=== PATIENT | male | born 1965 | race Caucasian/White ===

== ENCOUNTER 2021-09-09 15:36 | Outpatient (REF) | payer OTHER, SELFPAY ==
[2021-09-09 15:42] LABS: MANUAL DIFF FLAG NO
[2021-09-09 15:45] LABS: Basophils Absolute Auto 0.1 X10*3/uL (0.0-0.2); Basophils Percent Auto 0.5 % (0-2); Eosinophils Percent Auto 0.3 % (0-4); Hematocrit 44.6 % (42.0-52.0); Hemoglobin 14.9 g/dl (14.0-18.0); Imm Gran Abs Auto 0.03 X10*3/uL (0.00-0.03); Imm Gran Pct Auto 0.3 % (0.0-0.4); Lymphocytes Absolute Auto 3.3 X10*3/uL (1.2-4.9); Lymphocytes Percent Auto 33.3 % (20-40); Mean Corpuscular HGB Conc 33.4 g/dl (31.0-36.0); Mean Corpuscular Hemoglobin 31.3 pg (27.0-33.0); Mean Corpuscular Volume 93.7 fL (80.0-98.0); Mean Platelet Volume 10.6 fL (9.4-12.4); Monocytes Absolute Auto 0.8 X10*3/uL (0.1-1.2); Monocytes Percent Auto 8.2 % (2-11); Neutrophils Absolute Auto 5.7 x10*3/uL (2.0-8.3); Neutrophils Percent Auto 57.4 % (45-73); Platelet Count 279 X10*3/uL (160-400); Red Blood Count 4.76 X10*6/uL (4.60-5.80); Red Cell Distribution Width 12.4 % (11.0-16.0)
[2021-09-09 16:03] LABS: Alanine Aminotransferase 82 U/L (0-40); Albumin Level 4.6 g/dL (3.5-5.0); Alkaline Phosphatase 53 U/L (39-117); Anion Gap 13 (12-20); Aspartate Amino Transferase 52 U/L (5-37); Bilirubin Total 0.5 mg/dL (0.0-1.0); Blood Urea Nitrogen 23 mg/dL (9-16); Calcium 10.1 mg/dL (8.4-10.2); Carbon Dioxide 27 mmol/L (22-29); Chloride 105 mmol/L (96-108); Estimated Glomerular Filt Rate 57; Glucose Fasting 96 mg/dL (60-99); Potassium 4.5 mmol/L (3.3-5.1); Sodium 140 mmol/L (135-145); Total Protein 7.9 g/dL (6.5-8.0)
[2021-09-09 16:23] LABS: PSA,Total (Free>4and<10) 3.62 ng/mL (0.00-4.00); TSH reflex Free T4 1.78 uIU/mL (0.32-4.0)
== END 2021-09-09 15:37 | disposition home or self-care (01) ==
LOC: HO.LNP 15:36
PROVIDERS: Visit Provider Internal Medicine
DX: Z00.00 Encounter for general adult medical examination without abnormal findings (principal); E03.2 Hypothyroidism due to medicaments and other exogenous substances; R97.20 Elevated prostate specific antigen [PSA]; Z12.5 Encounter for screening for malignant neoplasm of prostate
CPT/HCPCS: 80053; 84153; 84443; 85025

== ENCOUNTER 2022-09-11 16:40 | Outpatient (REF) | payer OTHER, SELFPAY ==
[2022-09-11 17:48] LABS: PSA,Total (Free>4and<10) 3.51 ng/mL (0.00-4.00)
== END 2022-09-11 16:41 | disposition home or self-care (01) ==
LOC: HO.LNP 16:40
PROVIDERS: Visit Provider Internal Medicine
DX: Z12.5 Encounter for screening for malignant neoplasm of prostate (principal); Z80.42 Family history of malignant neoplasm of prostate
CPT/HCPCS: 84153

== ENCOUNTER 2024-11-08 15:10 | Outpatient (REF) | payer OTHER, SELFPAY ==
[2024-11-08 15:36] LABS: Potassium 4.5 mmol/L (3.3-5.1)
--- OUTSIDE RECORDS SUMMARY | 2024-11-08 18:24 | XMS_ITS | Referral Summary ---
Author Organization [facility] r Address [address] [place] [address] Phone Care Team Providers Care Research Hydraulic Engineer Name Role Phone Unavailable Primary Care Provider Unavailabl e Social History Tobacco Use Types Packs/Day Years Used Date Smoking Tobacco: Never Assessed Sex and Gender Information Value Date Recorded Sex Assigned at Not on file Gender Identity Not on file Sexual Orientation Not on file Last Filed Vital Signs Vital Sign Reading Time Taken Comments Blood Pressure 101/72 03/29/2012 10:32 AM EDT Pulse 65 03/29/2012 10:32 AM EDT Temperature - - Respiratory Rate - - Oxygen Saturation - - Inhaled Oxygen Concentration - - Weight 82.5 kg (181 lb 14.1 oz) 012 10:32 AM EDT Height 170 cm (5' 6.93 ) 03/29/2012 10: 32 AM EDT Body Mass Index 28.55 03/29/2012 10:32 AM EDT Plan of Treatment Not on file
--- OUTSIDE RECORDS SUMMARY | 2024-11-08 18:24 | XMS_ITS | Encounter Summary ---
Author Organization [facility] Address [address] [address] Phone Care Team Providers Care Business Writer Name Role Phone Frankie Marion MD Unavailable [phone] Rosas Triana MD Unavailable Eduardo Chen [facility] ROSLYN Unavailable Billy Tsang RN Unavailable [phone] Kimberly Raman MD Primary Care Provider Asher Coleman PA-C Unavailable Encounter Details Date Type Department Care Team (Late st Contact Info) Description 11/08/2024 Orders Only Adult Survivorship Program, [facility] [place] [address] [place] [address] Malorie Mckeon MD [address] [place] [address] [email or web address] Hypercalcemia (Primary Dx); Stage 3a chronic kidney disease Social History Tobacco Use Types Packs/Day Years Used Date Smoking Tobacco: Never Smokeless Tobacco: Never Alcohol Use Standard Drinks/Week Comments Yes 1 (1 standard drink = 0.6 oz pur e alcohol) occasional Education Answer Date Recorded Are you interested in more education? Not on paula e 12/27/2022 Are you concerned about learning? Not on file 12/27/2022 No 12/27/2022 No 12/27/2022 Digital Access Answer Date Recorded No 01/24/2023 No 01/24/2023 Reliable internet access at home? Not on file 01/24/2023 Device with a working camera? Not on file Sex and Gender Information Value Date Recorded Sex Assigned at Male 10/23/2021 10:19 PM EST Gender Identity Male 10/23/2021 10:19 PM EST Sexual Orientation Not on file documented as of this encounter Plan of Treatment Upcoming Encounters Date Type Department Care Team (Late st Contact Info) Description 11/09/2024 8:00 AM EDT Office Visit [facility] [address] [place] [address] Sang Matthews MD, MPH [address] [place] [address] [email or web address] 12/08/2024 11:50 AM EDT Blood Draw Laboratory Services, [facility] [address] [facility] 2 [place] [address] Malorie Mckeon MD [address] [place] [address] [email or web address] Yenny, MD Yenny 12/08/2024 1:00 PM EDT Office Visit [facility] Urology [address] [place] [address] Robinsno Enrique MD [address] [place], [place] [address] [address] [email or web address] 12/08/2024 2:00 PM EDT Office Visit Adult Survivorship Program, [facility] [address] [place], [place] [phone] Malorie Mckeon MD [address] [place] [address] @[email or web address] 02/13/2025 10:10 AM EDT Blood Draw Laboratory Services, [facility] [address] [facility] [address] [place] [address] Etienne Zarate MD [address] [place] [address] [email or web address] 02/13/2025 11:00 AM EDT Office Visit Division of Hematologic Oncology, [facility] [address] [facility] [address] [place] [address] Etienne Zarate MD [address] [place] [address] [email or web address] 03/07/2025 9:00 AM EDT Office Visit Adult Survivorship Program, [facility] [address] [facility] [address] [place] [address] Wilder Melvin MD [address] [place] [address] [email or web address] Scheduled Orders Name Type Priority Associated Diagnoses Orde r Schedule Comprehensive metabolic panel Lab Routine Hypercalcemia Stage 3a chronic kidney disease Expected: 11/08/2024, Expires: 11/08/2025 Cystatin C Lab Routine Hypercalcemia Stage 3a chronic kidney disease Expected: 11/08/2024, Expires: 11/08/2025 Uric acid Lab Routine Hypercalcemia Stage 3a chronic kidney disease Expected: 11/08/2024, Expires: 11/08/2025 Microalbumin/creatinine ratio, random urine Lab Routine Hypercalcemia Stage 3a chronic kidney disease Expected: 11/08/2024, Expires: 11/08/2025 Total protein, random urine Lab Routine Hypercalcemia Stage 3a chronic kidney disease Expected: 11/08/2024, Expires: 11/08/2025 LDH Lab Routine Hypercalcemia Stage 3a chronic kidney disease Expected: 11/08/2024, Expires: 11/08/2025 Haptoglobin Lab Routine Hypercalcemia Stage 3a chronic kidney disease Expected: 11/08/2024, Expires: 11/08/2025 25-OH vitamin D Lab Routine Hypercalcemia Expected: 11/08/2024, Expires: 11/08/2025 Parathyroid hormone (PTH) Lab Routine Hypercalcemia Stage 3a chronic kidney disease Expected: 11/08/2024, Expires: 11/08/2025 Phosphorus Lab Routine Hypercalcemia Stage 3a chronic kidney disease Expected: 11/08/2024, Expires: 11/08/2025 documented as of this encounter Visit Diagnoses Diagnosis Hypercalcemia- Primary Stage 3a chronic kidney disease documented in this encounter Additional Health Concerns Assessment Noted Time PHQ-2 Depression Total Score: 0 12/24/19 24 6:18 PM EDT documented as of this encounter Care Teams Business Writer Relationship Specialty Start Date End Date Kimberly Raman MD [address] [place] [address] Care - 4th [place] [address] [email or web address] PCP - General Internal Medicine 05/21/22 Asher Coleman PAMaryC [address] [place] [address] PCP - Resident PCP Physician Business Support Associate 05/21/22 Frankie Marion MD [address] [place] [address] Historical LMR Provider 01/13/15 Rosas Triana MD [address] [place] [address] Historical LMR Provider 01/13/15 Eduardo Chen, [facility] ROSLYN [address] [place] [address] [email or web address] Endocrinology 05/12/17 Billy Tsang RN [address] [place] [address] [email or web address] Primary Infusion Nurse 09/09/17 documented as of this encounter Additional Source Comments The information contained in this document represents components of the legal health record. It is not the complete legal health record.[facility]
--- OUTSIDE RECORDS SUMMARY | 2024-11-08 18:24 | XMS_ITS | Encounter Summary ---
Author Organization [facility] Address [address] [place] [address] Phone Care Team Providers Care Leather Coater Name Role Phone Frankie Marion MD Unavailable [phone] Rosas Triana MD Unavailable Eduardo Chen [facility] ROSLYN Unavailable Billy Tsang RN Unavailable Kimberly Raman MD Primary Care Provider Asher Coleman PA-C Unavailable Reason for Visit * Reason Comments Eye Exam Encounter Details Date Type Department Care Team (Late st Contact Info) Description 11/07/2024 2:30 PM EDT Office Visit [facility] Comprehensive Ophthalmology [address] [address] Tiffanie Capone MD, PhD [address] [place] [address] 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 man with a history of AML s/p MUD PBSCT 2009. 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 Vaccinated x3 against COVID-19. Not considered immunocompromised. 1. 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, OS always has foreign body sensation and does not change - OD baseline comfortable - white discharge and crusting OD in the past month - constant throughout the day, uses handkerchief to dig it out - OD looks red throughout the day - OS less erythema and edema, no discharge - used Serum tears OU around 2x/day - Has been using Restasis OU a few times a week as a lubricant, not on any lubricant - no keratoconjunctivitis components seen on exam today - stopped ReStasis, now doing better - some irritation after running out of serum tears (2-3x/day OU), new supply to be delivered soon - now back on serum tears 2-3x/day OU, doing well. Only used Lotemax for ~1 week in early March for irritation after glaucoma clinic and resolved - Only one plug in (LLL), no SPK or staining OU - 04/03/20: Stopped using serum tears since 08/2019 because of the difficulty to get blood drawn (apptwas very strict and requires in person pick-up). Reports slight setback without using serum tears but not drastically. Still uses PF-AT's around BID. Uses Lotemax around 2x/month PRN. Only needs 1 dose to control early flare-ups. OS good lid condition, OD very mild inflammation explains mucous discharge. Not rubbing or digging. - 11/08/20: noticed that there was some crusting (all day) and irritation on lids in the past 3 weeks. Using warm compress to remove crusting. Using Lotemax ointment QHS for past 3 weeks. Was off for many months previously. Not symptomatic except visible lid margin redness. - 11/07/21: Notes small amount of crusting in the mornings every day. Uses warm compresses every morning to wipe his eyes. Also notes he had a period of discharge in July 2021. Used Lotemax x3 weeks in August 2021 for new onset irritation which seemed to resolve his symptoms. No crusting on lash OU, excellent ocular surface OU. - 11/07/24: Mostly comfortable with ocassional irritation (~1/day) in the evening and discharge OU not using PF-ATs or lotemax. Able to get off lotemax, not used it for 6 months. Warm compress daily has improved meibum expression OD > OS. OS more symptomatic likely from MG inspissation. no corneastaining OU. Plug status after visit: no plug 2. 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 Lucia Rodriguez, not on glaucoma drops - Tm 30 OU when on 10mg of Prednisone orally - CCT 570 560 - IOP 20 OU on Lotemax QHS OU, at goal - IOP 18 OU off Lotemax - 04/03/20: 18/19 on occasional Lotemax (stable) - HVF 24-2 (11/07/24) OD full reliable OS small nonspecific defect paracentrally, reliable - MAC OCT (11/07/24) OU WNL - RNFL OCT (11/07/24) OU WNL 3. MGD Belpharitis OU - foamy discharge at lid margin resolved - most MG expressible, some MG with cloudy secretion - 11/07/24 Warm compress daily has improved meibum expression OD > OS. OS more symptomatic likelyfrom MG inspissation. 4. Posterior Subcapsular Cataract OU - History of Prednisone use - Posterior subcapsular component - No subjective vision change but may develop symptoms quickly - Biometry done 11/07/24 5. Choroidal Nevus OD, RPE Changes OS - Mild, not visually significant Plan - Discussed the diagnosis in detail: I explained to Carter that he is doing well. To further improve his ocular symptoms, I suggested longer warm compresses. Furthermore, there appears to be a cataract not visually significant at the moment, when this progresses and effects his vision he can call in. - No rubbing or mucous fishing - Restart PF-ATs QD OU - Continue warm compress OU QD at least 10 mins - Follow up with me TBD, call for appointment for VAcc and no gtts. MD to discuss cataracts. By signing my name below, I, Alejandro Josue, acting as a scribe, attest that this documentation has been prepared under the direction and in the presence of Tiffanie Capone MD. 11/07/2024 3:27 PM documented in this encounter Plan of Treatment Upcoming Encounters Date Type Department Care Team (Late st Contact Info) Description 11/09/2024 8:00 AM EDT Office Visit [facility] [address] [place] [address] Sang Matthews MD, MPH [address] [place] [address] [email or web address] 12/08/2024 11:50 AM EDT Blood Draw Laboratory Services, [facility] [address] [place] [address] 2 [place] [address] Malorie Mckeon MD [address] [place] [address] [email or web address] Unknown, MD Yenny 12/08/2024 1:00 PM EDT Office Visit [facility] Urology [address] [place], [place] [address] [address] Robinson Enrique MD [address] [facility] [address] [email or web address] 12/08/2024 2:00 PM EDT Office Visit Adult Survivorship Program, [facility] [address] [place] [address] Malorie Mckeon MD [address] [place] [address] @[email or web address] 02/13/2025 10:10 AM EDT Blood Draw Laboratory Services, [facility] [address] [facility] Fl 2 [place] [address] Etienne Zarate MD 450 [place] [address] [email or web address] 02/13/2025 11:00 AM EDT Office Visit Division of Hematologic Oncology, [facility] [address] [place] [address] Etienne Zarate MD 450 [place] [address] [email or web address] 03/07/2025 9:00 AM EDT Office Visit Adult Survivorship Program, [facility] [address] [place] [address] Wilder Melvin MD [address] [place] [address] [email or web address] documented as of this encounter Procedures Procedure Name Priority Date/Time Associated Diagnosis Comments OCT, RETINA - OU - BOTH EYES Routine 11/07/2024 11:07 PM EDT Steroid responder, bilateral OCT, OPTIC NERVE - OU - BOTH EYES Routine 11/07/2024 11:07 PM EDT Steroid responder, bilateral OPTICAL BIOMETRY - OU - BOTH EYES Routine 11/07/2024 11:07 PM EDT 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-related cataract of both eyes LEDBETTER VISUAL FIELD - OU - BOTH EYES Routine 11/07/2024 2:46 PM EDT Steroid responder, bilateral documented in this encounter Results * OCT, RETINA - OU - BOTH EYES - Cirrus; Retina (11/07/2024 11:07 PM EDT) Narrative YolaY - 11/07/2024 11:07 PM EDT - MAC OCT (11/07/24) OU WNL Tiffanie Capone MD, PhD OPHTHALMOLOGY HERMINIODav OMER Performing Organization Address [facility] de Phone Number HARMONY * OCT, Optic Nerve - OU - Both Eyes - Cirrus; RNFL, GCC (11/07/2024 11:07 PM EDT) Narrative YolaY - 11/07/2024 11:07 PM EDT - RNFL OCT (11/07/24) OU WNL Tiffanie Capone MD, PhD OPHTHALMOLOGY HERMINIODav OMER Performing Organization Address [facility] de Phone Number HARMONY * Optical Biometry - OU - Both Eyes (11/07/2024 11:07 PM EDT) Narrative YolaY - 11/07/2024 11:07 PM EDT I have reviewed the biometry data. Tiffanie Capone MD, PhD OPHTHALMOLOGY HERMINIODav OMER Performing Organization Address [facility] Co de Phone Number HARMONY * Ledbetter Visual Field - OU - Both Eyes (11/07/2024 2:46 PM EDT) Narrative YolaY - 11/07/2024 11:08 PM EDT Right Eye Pattern: 24-2. Left Eye Pattern: 24-2. General Details Testing performed by: shola. Notes - HVF 24-2 (11/07/24) OD full reliable ?? 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-related cataract of both eyes Chronic ccare-jgsepb-kpkj disease documented in this encounter Additional Health Concerns Assessment Noted Time PHQ-2 Depression Total Score: 0 12/24/19 24 6:18 PM EDT documented as of this encounter Care Teams Leather Coater Relationship Specialty Start Date End Date Kimberly Raman MD 20 [facility] Primary Care - 4th [place] [address] [email or web address] PCP - General Internal Medicine 05/21/22 Asher Coleman PAMaryC 20 [place] [address] [email or web address] PCP - Resident PCP Physician Principal Examiner 05/21/22 Frankie Marion MD [address] [place] [address] Historical LMR Provider 01/13/15 Rosas Triana MD [address] [place] [address] [email or web address] Historical LMR Provider 01/13/15 Eduardo Chen, [facility] ROSLYN [address] [place] [address] [email or web address] Endocrinology 05/12/17 Billy Tsang, RN [address] [place] [address] [email or web address] Primary Infusion Nurse 09/09/17 documented as of this encounter Additional Source Comments The information contained in this document represents components of the legal health record. It is not the complete legal health record.[facility]
--- OUTSIDE RECORDS SUMMARY | 2024-11-08 18:24 | XMS_ITS | Encounter Summary ---
Author Organization [facility] Address [address] [place] [address] Phone Care Team Providers Care Steel Rule Die Maker Name Role Phone Luis M Dempsey MD Primary Care Provider Frankie Marion MD Unavailable [phone] Khoa Mattson MD Unavailable Rosas Triana MD Unavailable Yamel Osborne MD Unavailable [phone] Eduardo Chen [facility] Unavailable Billy Tsang RN Unavailable Kimberly Raman MD Primary Care Provider [phone] Asher Coleman PA-C Unavailable Encounter Details Date Type Department Care Team (Latest Contact Info) Description 05/20/2019 Transcribe Orders [address] [address] Yousuf Zamora MD, PhD Dry eyes (Primary Dx) Social History Tobacco Use Types Packs/Day Years Used Date Smoking Tobacco: Never Smokeless Tobacco: Never Alcohol Use Standard Drinks/Week Comments Yes 1 (1 standard drink = 0.6 oz pur e alcohol) occasional Sex and Gender Information Value Date Recorded Sex Assigned at Male 10/23/2021 10:19 PM EST Gender Identity Male 10/23/2021 10:19 PM EST Sexual Orientation Not on file documented as of this encounter Plan of Treatment Upcoming Encounters Date Type Department Care Team (Late st Contact Info) Description 11/09/2024 8:00 AM EDT Office Visit [facility] [address] [address] Sang Matthews MD, MPH [address] [place] [address] [email or web address] 12/08/2024 11:50 AM EDT Blood Draw Laboratory Services, [facility] [address] [facility] [address] [place] [address] Malorie Mckeon MD [address] [place] [address] [email or web address] Unknown, Yenny, 12/08/2024 1:00 PM EDT Office Visit [facility] Urology [address] [address] Robinson Enrique MD [address] [address] [email or web address] 12/08/2024 2:00 PM EDT Office Visit Adult Survivorship Program, [facility] [address] [facility] [place] [address] Malorie Mckeon MD [address] [place] [address] [email or web address] 02/13/2025 10:10 AM EDT Blood Draw Laboratory Services, [facility] [address] [facility] [address] [place], [place] Etienne Zarate MD [address] [place] [address] [email or web address] 02/13/2025 11:00 AM EDT Office Visit Division of Hematologic Oncology, [facility] [address] [email or web address] [place] [address] Etienne Zarate MD [address] [place] [address] [email or web address] 03/07/2025 9:00 AM EDT Office Visit Adult Survivorship Program, [facility] [address] [facility], Fl [address] [place] [address] Wilder Melvin MD [address] [place] [address] [email or web address] documented as of this encounter Procedures Procedure Name Priority Date/Time Associated Diagnosis Comments HC CULTURE BACTERIAL ANY SOURCE ANAEROBIC ISO&ID Routine 05/20/2019 10:11 AM EDT Dry eyes documented in this encounter Results * AUTOLOGOUS SERUM FOR TEARS LAB BLOOD DRAW (05/20/2019 10:11 AM EDT) Tubes Drawn [address] [place] [address] [facility] 05/20/2019 10:1 1 AM EDT 05/20/2019 11:19 AM EDT Yousuf Zamora MD, PhD LAB BLOOD ORDERA [place] [address], [facility] documented in this encounter Visit Diagnoses Diagnosis Dry eyes- Primary Unspecified tear film insufficiency documented in this encounter Additional Health Concerns Infection Onset Date Last Indicated Resolved Time CoV-Risk 03/27/2021 03/27/2021 04/06/2021 1:24 AM EDT Assessment Noted Time PHQ-2 Depression Total Score: 0 04/22/20 18 3:04 PM EDT documented as of this encounter Care Teams Steel Rule Die Maker Relationship Specialty Start Date End Date Luis M Dempsey MD [address] [place] [address] [place] [address] PCP - General 02/28/14 05/20/22 Kimberly Raman MD 20 [facility] Primary Care - [address] [place] [address] [email or web address] PCP - General Internal Medicine 05/21/22 Asher Coleman PA-C 20 [place] [address] PCP - Resident PCP Physician Sorter Lumber Straightener 05/21/22 Frankie Marion MD [address] [place] [address] Historical LMR Provider 01/13/15 Khoa Mattson MD [address] [place] [address] Historical LMR Provider 01/13/15 2 Rosas Triana MD [address] [place] [address] [email or web address] Historical LMR Provider 01/13/15 Yamel Osborne MD [address] [place] [address] [email or web address] Historical LMR Provider 01/13/15 09/07/21 Eduardo [facility] ROSLYN [address] [place] [address] [email or web address] Endocrinology 05/12/17 Billy Tsang, RN [address] [place] [address] [email or web address] Primary Infusion Nurse 09/09/17 documented as of this encounter Additional Source Comments The information contained in this document represents components of the legal health record. It is not the complete legal health record.[facility]
--- OUTSIDE RECORDS SUMMARY | 2024-11-08 18:24 | XMS_ITS | Encounter Summary ---
Author Organization [facility] Address [address] [place] [phone] Phone Care Team Providers Care Respiratory Support Technician Name Role Phone Luis M Dempsey MD Primary Care Provider Frankie Marion MD Unavailable Ayan Anderson NP Unavailable [phone] Khoa Mattson MD Unavailable Rosas Triana MD Unavailable Yamel Osborne MD Unavailable [phone] Luis M Dempsey MD Unavailable Eduardo Chen [facility] ROSLYN Unavailable Billy Tsang RN Unavailable Kimberly Raman MD Primary Care Provider Asher Coleman PA-C Unavailable Encounter Details Date Type Department Care Team (Late st Contact Info) Description 04/21/2017 Procedure Pass [facility] Cardiac Photographic Enlarger Operator [address] [place] [id number] Social History Tobacco Use Types Packs/Day Years Used Date Smoking Tobacco: Never Smokeless Tobacco: Never Alcohol Use Standard Drinks/Week Comments Yes 1 (1 standard drink = 0.6 oz pur e alcohol) Sex and Gender Information Value Date Recorded Sex Assigned at Male 10/23/2021 10:19 PM EST Gender Identity Male 10/23/2021 10:19 PM EST Sexual Orientation Not on file documented as of this encounter Plan of Treatment Upcoming Encounters Date Type Department Care Team (Late st Contact Info) Description 11/09/2024 8:00 AM EDT Office Visit [facility] [address] [address] Sang Matthews MD, MPH 221 [place] [address] [email or web address] 12/08/2024 11:50 AM EDT Blood Draw Laboratory Services, [facility] [email or web address] [facility] Fl 2 [place] [address] Malorie Mckeon MD [address] [place] [address] [email or web address] Unknown, Yenny, 12/08/2024 1:00 PM EDT Office Visit [facility] Urology [address] [place] [address] Robinson Enrique MD [address] [facility] [address] [email or web address] 12/08/2024 2:00 PM EDT Office Visit Adult Survivorship Program, [facility] [address] [facility], Fl 6 [place] [address] Malorie Mckeon MD [address] [place] [address] [email or web address] 02/13/2025 10:10 AM EDT Blood Draw Laboratory Services, [facility] [address] [facility] Fl [address] [place] [address] Etienne Zarate MD 450 [place] [address] [email or web address] 02/13/2025 11:00 AM EDT Office Visit Division of Hematologic Oncology, [facility] 450 [facility], Fl 8 [place] [address] Etienne Zarate MD 450 [place] [address] [email or web address] 03/07/2025 9:00 AM EDT Office Visit Adult Survivorship Program, [facility] 450 [facility] Machine Safety ManangementwAugustine Temperature Management Ctr, Fl 6 [place] [address] Wilder Melvin MD [address] [place] [address] [email or web address] documented as of this encounter Visit Diagnoses Not on filedocumented in this encounter Additional Health Concerns Infection Onset Date Last Indicated Resolved Time CoV-Risk 03/27/2021 03/27/2021 04/06/2021 1:24 AM EDT documented as of this encounter Care Teams Respiratory Support Technician Relationship Specialty Start Date End Date Luis M Dempsey MD [address] [place] [address] [place] [address] PCP - General 02/28/14 05/20/22 Kimberly Raman MD 20 [facility] Primary Care - 4th [place] [address] [email or web address] PCP - General Internal Medicine 05/21/22 Asher Coleman Ci, PA-C 20 [place] [address] [email or web address] PCP - Resident PCP Physician Manager Of Manufacturing 05/21/22 Frankie Marion MD [address] [place] [address] Historical LMR Provider 01/13/15 Ayan Anderson, JULIANNE [address] [place], [place] [address] [address] [email or web address] Historical LMR Provider 01/13/15 09/06/17 Khoa Mattson MD [address] [place] [address] Historical LMR Provider 01/13/15 2 Rosas Triana MD [address] [place] [address] [email or web address] Historical LMR Provider 01/13/15 Yamel Osborne MD [address] [place] [address] [email or web address] Historical LMR Provider 01/13/15 09/07/21 Luis M Dempsey MD [address] [place] [address] [place] [address] Referring Physician Internal Medicine 11/06/15 09/06/17 Eduardo Chen, [facility] ROSLYN [address] [place] [address] [email or web address] Endocrinology 05/12/17 Billy Tsang, RN 300 [place] [address] [email or web address] Primary Infusion Nurse 09/09/17 documented as of this encounter Additional Source Comments The information contained in this document represents components of the legal health record. It is not the complete legal health record.[facility]
--- OUTSIDE RECORDS SUMMARY | 2024-11-08 18:25 | XMS_ITS | Clinical Summary ---
Author Organization [facility] Address 1 [place] [address] Phone Care Team Providers Care Financial Management Consultant Name Role Phone Unavailable Primary Care Provider [...] 03/29/2012 10:32 AM EDT Plan of Treatment Health Maintenance Due Date Last Done Comments Diabetes Screening 1967 HIV Lifetime Screening 1967 Hepatitis B sAg Lifetime Screening 1967 Hepatitis C Antibody Lifetim e Screening 1967 LIPID PANEL 1967 THRIVE SCREENING 1967 Oral Health Screen 1967 HEIP Disability Screen 02/11/1972 BEHAVIORAL HEALTH SCREEN 1979 Psych Substance Use Screen 1979 DTAP/TDAP VACCINE (1 - Tdap) 1986 Zoster Vaccine (1 of 2) 2017 COVID-19 Vaccine ( - 2023-2 5 season) 2024 INFLUENZA VACCINE (#1) 2024 Colorectal Cancer Screening Completed HPV VACCINES Aged Out No longer eligi ble based on patient's age to complete this topic IPV VACCINES Aged Out No longer eligi ble based on patient's age to complete this topic Pneumonia Vaccine 0-64 Aged Out No lo nger eligible based on patient's age to complete this topic ROTAVIRUS VACCINES Aged Out No longer eligible based on patient's age to complete this topic
--- OUTSIDE RECORDS SUMMARY | 2024-11-08 18:25 | XMS_ITS | Encounter Summary ---
Author Organization [facility] Address [address] [place] [address] Phone Care Team Providers Care Junior Buyer Name Role Phone Luis M Dempsey MD Primary Care Provider Lynda Cuenca MD Unavailable Frankie Marion MD Unavailable [phone] Ayan Anderson NP Unavailable [phone] Khoa Mattson MD Unavailable Rosas Triana MD Unavailable Yamel Osborne MD Unavailable [phone] Luis M Dempsey MD Unavailable [phone] [facility] ROSLYN Unavailable Billy Tsang RN Unavailable [phone] Kimberly Raman MD Primary Care Provider [phone] Asher Coleman PA-C Unavailable Encounter Details Date Type Department Care Team (Late st Contact Info) Description 08/23/2015 EpicOnHand Encounter Division of Hematologic Oncology, [facility] [address] [place] [address] 8 [place], [place] [phone] Odette Martin NP [address] [address] [email or web address] Social History Tobacco Use Types Packs/Day Years [...] Description 11/09/2024 8:00 AM EDT Office Visit [facility] [address] [phone] Sang Matthews MD, MPH 221 [place] [address] [email or web address] 12/08/2024 11:50 AM EDT Blood Draw Laboratory Services, [facility] 450 [address] [employer] [facility] 2 [place] [address] Malorie Mckeon MD 45 [place], [place] @[facility] Yenny, MD Yenny 12/08/2024 1:00 PM EDT Office Visit [facility] Urology [address] [address] Robinson Enrique MD [address] [address] [email or web address] 12/08/2024 2:00 PM EDT Office Visit Adult Survivorship Program, [facility] [address] [employer] [facility], Fl [address] [place] [address] Malorie Mckeon MD [address] [place] [address] [email or web address] 02/13/2025 10:10 AM EDT Blood Draw Laboratory Services, [facility] 450 [facility] Fl [address] [place], [place] Etienne Zarate MD 450 [place] [address] [email or web address] 02/13/2025 11:00 AM EDT Office Visit Division of Hematologic Oncology, [facility] [address] [employer] [facility], Fl 8 [place] [address] Etienne Zarate MD 450 [place] [address] [email or web address] 03/07/2025 9:00 AM EDT Office Visit Adult Survivorship Program, [facility] 450 [facility], Wy 6 [place] [address] Wilder Melvin MD [address] [place] [address] [email or web address] documented as of this encounter Visit Diagnoses Not on filedocumented in this encounter Additional Health Concerns Infection Onset Date Last Indicated Resolved Time CoV-Risk 03/27/2021 03/27/2021 04/06/2021 1:24 AM EDT documented as of this encounter Care Teams Junior Buyer Relationship Specialty Start Date End Date Luis M Dempsey MD [address] [place] [address] [place] [address] PCP - General 02/28/14 05/20/22 Kimberly Raman MD 20 [facility] Primary Care - 4th [place] [address] [email or web address] PCP - General Internal Medicine 05/21/22 Asher Coleman PA-C 20 [place] [address] [email or web address] PCP - Resident PCP Physician Circular Sawyer Stone 05/21/22 Lynda Cuenca MD [address] [place] [address] Endocrinology, Diabetes [place] [address] [email or web address] Historical LMR Provider 01/13/15 11/04/15 Frankie Marion MD [address] [place] [address] Historical LMR Provider 01/13/15 Ayan Anderson NP [address] [place] [address] [address] [email or web address] Historical LMR Provider 01/13/15 09/06/17 Khoa Mattson MD [address] [place] [address] Historical LMR Provider 01/13/15 2 Rosas Triana MD [address] [place] [address] [email or web address] Historical LMR Provider 01/13/15 Yamel Osborne MD [address] [place] [address] [email or web address] Historical LMR Provider 01/13/15 09/07/21 Luis M Dempsey MD [address] [place] [address] [address] Referring Physician Internal Medicine 11/06/15 09/06/[address] [facility] ROSLYN [address] [place] [address] [email or web address] Endocrinology 05/12/17 Billy Tsang, RN [address] [place] [address] [email or web address] Primary Infusion Nurse 09/09/17 documented as of this encounter Additional Source Comments The information contained in this document represents components of the legal health record. It is not the complete legal health record.[facility]
--- OUTSIDE RECORDS SUMMARY | 2024-11-08 18:25 | XMS_ITS | Encounter Summary ---
Author Organization [facility] Address [address] [address] Phone Care Team Providers Care Incendiaries Supervisor Name Role Phone Luis M Dempsey MD Primary Care Provider Frankie Marion MD Unavailable [phone] Khoa Mattson MD Unavailable Rosas Triana MD Unavailable Yamel Osborne MD Unavailable [phone] Eduardo Chen [facility] Unavailable Billy Tsang RN Unavailable Kimberly Raman MD Primary Care Provider Asher Coleman PA-C Unavailable Encounter Details Date Type Department Care Team (Late st Contact Info) Description 09/10/2017 Transcribe Orders [facility] Echocardiography 70 [place] [address] Sienna Kim 75 [place] [address] [email or web address] Social History Tobacco Use Types Packs/Day Years [...] Description 11/09/2024 8:00 AM EDT Office Visit [facility] [address] [address] Sang Matthews MD, MPH [address] [place] [address] [email or web address] 12/08/2024 11:50 AM EDT Blood Draw Laboratory Services, [facility] [address] [facility] 2 [place] [address] Malorie Mckeon MD [address] [place] [address] [email or web address] Unknown, Yenny, 12/08/2024 1:00 PM EDT Office Visit [facility] Urology [address] [address] Robinson Enrique MD [address] [place] [address] [email or web address] 12/08/2024 2:00 PM EDT Office Visit Adult Survivorship Program, [facility] [address], [address] 6 [place] [address] Malorie Mckeon MD [address] [place] [address] [email or web address] 02/13/2025 10:10 AM EDT Blood Draw Laboratory Services, [facility] [address] [facility] [address] [place] [address] Etienne Zarate MD 450 [place] [address] [email or web address] 02/13/2025 11:00 AM EDT Office Visit Division of Hematologic Oncology, [facility] [address] [facility] C[facility], Fl 8 [place] [address] Etienne Zarate MD 450 [place] [address] [email or web address] 03/07/2025 9:00 AM EDT Office Visit Adult Survivorship Program, [facility] [address] [facility], Fl 6 [place] [address] Wilder Melvin MD [address] [place] [address] [email or web address] documented as of this encounter Visit Diagnoses Not on filedocumented in this encounter Additional Health Concerns Infection Onset Date Last Indicated Resolved Time CoV-Risk 03/27/2021 03/27/2021 04/06/2021 1:24 AM EDT Assessment Noted Time PHQ-2 Depression Total Score: 0 09/10/19 18 3:10 PM EST documented as of this encounter Care Teams Incendiaries Supervisor Relationship Specialty Start Date End Date Luis M Dempsey MD [address] [place] [address] [place] [address] PCP - General 02/28/14 05/20/22 Kimberly Raman MD [address] [place] [address] Primary Care - 4th [place] [address] [email or web address] PCP - General Internal Medicine 05/21/22 Asher Coleman PA-C 20 [place] [address] [email or web address] PCP - Resident PCP Physician Finished Cloth Checker 05/21/22 Frankie Marion MD 450 [place] [address] Historical LMR Provider 01/13/15 Khoa Mattson MD [address] [place] [address] Historical LMR Provider 01/13/15 Rosas Irvin MD [address] [place] [address] [email or web address] Historical LMR Provider 01/13/15 Yamel Osborne MD 450 [place] [address] [email or web address] Historical LMR Provider 01/13/15 09/07/21 Eduardo Chen [facility] ROSLYN [address] [place] [address] [email or web address] Endocrinology 05/12/17 Billy Tsang, PRANAV [address] [place] [address] [email or web address] Primary Infusion Nurse 09/09/17 documented as of this encounter Additional Source Comments The information contained in this document represents components of the legal health record. It is not the complete legal health record.[facility]
--- OUTSIDE RECORDS SUMMARY | 2024-11-08 18:25 | XMS_ITS | Clinical Summary ---
Author Organization [facility] Address [address] [place] [address] Phone Care Team Providers Care Card Services Specialist Name Role Phone Frankie Marion MD Unavailable [phone] Roass Triana MD Unavailable Eduardo Chen [facility] ROSLYN Unavailable Billy Tsang RN Unavailable Kimberly Raman MD Primary Care Provider Asher Coleman PA-C Unavailable Allergies Active Allergy Reactions Criticality Noted Date Comments Cefepime Rash,Other (See Comments) 03/22/2010 fever Ceftazidime Rash,Other (See Comments) 0 fever Prochlorperazine Other (See Comments),Unknown 0 09/20/2010 akathisia Medications Medication Sig Dispensed Refills Start Date End Date Status fluocinolone (SYNALAR) 0.025 % creamIndications: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 04/07/2011 Active folic acid (FOLVITE) 1 MG tablet Take 1 tablet by mouth daily. 08/12/2010 Active custom medication, see admin inst / label comment, AUTOLOGOUS SERUM TEARS 20% Dose: 1 DROP; Form: Not available; Route: OU; Frequency: BID OU; Directions: Patients need to be scheduled for a venipuncture on the day tears are to be compounded. Fresh blood must always be used. The amount of blood that is drawn will depend on the patient?s hemoglobin and hematocrit level, in addition to the size, age and cooperation of the patient; this will ultimately affect the amount of ophthalmic drops that are prepared. Recommended amount of blood for an average size adult is 30 ml. It is imperative that the lab is instructed that the serum will be needed for autologous use. If any of the serum is hemolyzed, the serum will not be able to be used. The amount of serum that is received by the lab will determine the amount of ophthalmic solution that is compounded. Each 1 ml of serum will produce 5 ml of diluted autologous tears. Patients must be counseled on the special handling procedures of blood products. Special emphasis must be placed on appropriate storage conditions of this product.; Details: Duration: 90 day(s); Dispense: 6 Bottle(s); Date: 11/06/2015 11/06/2015 Active ergocalciferol (DRISDOL) 50,000 unit capsule Active loteprednol (LOTEMAX) 0.5 % Oint PLACE INTO EACH EYE NIGHTLY AT BEDTIME. APPLY ONE RICE GRAIN SIZED OINTMENT TO EACH LID MARGIN NIGHTLY 3.5 g 09/09/2021 Active docosahexaenoic acid/epa (FISH OIL ORAL) Take by mouth. Active vitamin E 400 UNIT capsule Take 400 Units by mouth daily. Active levothyroxine (SYNTHROID, LEVOTHROID) 75 MCG tablet take 1 tablet by mouth every day 90 tablet 11 10/12/2023 Active potassium citrate (UROCIT-K) 10 mEq SR tabletIndications:C alculus of kidney Take 2 tablets (20 mEq total) by mouth 2 (two) times a day with meals. 120 tablet 11 12/07/2023 Active lisinopril (PRINIVIL,ZESTRIL) 5 MG tabletIndications:C hronic renal impairment, stage 1 Take 1 tablet (5 mg total) by mouth daily. 90 tablet 3 08/15/2024 Active Active Problems Problem Noted Date Diagnosed Date Status post patent foramen ovale closure 018 Shortness of breath 04/21/2017 Pneumonia due to infectious organism 09/25/2016 Status post allogeneic bone marrow transplant Chest pain 09/22/2015 Abdominal pain 09/20/2015 Chronic renal impairment 10/24/2013 Overview (10/21/2014): Chronic renal impairment Hypothyroidism 10/11/2012 Overview (10/21/2014): Hypothyroidism Glaucoma 02/26/2012 Overview (10/21/2014): Glaucoma Osteoporosis 01/19/2012 Overview (10/21/2014): Osteoporosis Uncoded new pt 11/19/2011 Overview (10/21/2014): new pt; pt is here for right knee, avasular necrosis Pulmonary embolism 06/26/2011 Overview (10/21/2014): Pulmonary embolism 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 Overview (10/21/2014): Acute myeloid leukemia, disease Encounters Date Type Department Care Team Description 11/08/2024 Orders Only Adult Survivorship Program, [facility] [address] [place] [address] Malorie Mckeon MD Hypercalcemia (Primary Dx); Stage 3a chronic kidney disease 11/07/2024 2:30 PM EDT Office Visit [facility] [address] [address] Tiffanie Capone MD, PhD Meibomian gland dysfunction (MGD) (Primary Dx); Steroid responder, bilateral; 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-related cataract of both eyes; Chronic aryls-iyttep-zyvj disease 09/01/2024 Orders Only Division of Hematologic Oncology, [facility] [address] [place] [address] Etienne Zarate MD Status post allogeneic bone marrow transplant (Primary Dx) 08/15/2024 Orders Only [facility] [address] [place] [address] Malorie Mckeon MD Chronic renal impairment, stage 1 from Last 3 Months Immunizations Name Administration Dates Next Due COVID-19 (Pre-06/22) Moderna Vaccine, mRNA, PF 10/28/2020 DTaP, unspecified formulation 08/18/2011, 011 Hepatitis A, Adult 12/30/2022 Hib, unspecified formulation 06/21/2012,08/18/20 11,06/16/2011 Influenza Quadrivalent MDCK Preservative Free IM 06/19/2023 Influenza Quadrivalent Prese rvative Free IM 06/05/2022,07/03/2016,07/06/2015,06/26 Influenza Trivalent Preserva tive Free IM 06/27/2021,06/09/2020,06/16/2019,06/01,06/05/2017,06/20/2013,06/21/2012 Influenza, Unspecified Formulation 11/25/2010,(Deferred: Other) MMR 05/09/2019 Meningococcal MCV4O 12/30/2022 Meningococcal MPSV4 06/16/2011 PPD Test 11/14/2022 Pneumococcal conjugate PCV13 06/21/2012,08/18/20 11,06/16/2011 Pneumococcal polysaccharide PPSV23 05/09,09/20/2010(Deferred: Other),03/01/2010(Deferred: Other - pt functionally neutropenic, doesn't meet critrea) Tdap 05/09/2019,06/21/2012 Zoster recombinant 09/07/2019,05/09/2019 Family History Medical History Relation Comments Prostate cancer Father Glaucoma Mother glaucoma Blindness Neg Hx Diabetes Neg Hx Macular degeneration Neg Hx Osteoporosis Neg Hx Retinal detachment Neg Hx Relation Status Comments Father Alive Mother Alive Social History Tobacco Use Types Packs/Day Years Used Date Smoking Tobacco: Never Smokeless Tobacco: Never Tobacco Cessation:Counseling Given: Not Answered Alcohol Use Standard Drinks/Week Comments Yes 1 [...] PM EST Sexual Orientation Not on file Last Filed Vital Signs Vital Sign Reading Time Taken Comments Blood Pressure 132/80 02/11/2023 10:46 AM EDT Pulse 70 02/11/2023 10:46 AM EDT Temperature 36.4 ??C (97.6 ??F) 02/11/2023 1 0:46 AM EDT Respiratory Rate 16 02/11/2023 10:4 6 AM EDT Oxygen Saturation 96% 02/11/2023 10: 46 AM EDT Inhaled Oxygen Concentration - - Weight 85.2 kg (187 lb 13.3 oz) 023 10:46 AM EDT Height 168.5 cm (5' 6.34 ) 01/15/2023 9:09 AM ED T Body Mass Index 30.01 01/15/2023 9:09 AM EDT Plan of Treatment Upcoming Encounters Date Type Department Care Team (Late st Contact Info) Description 11/09/2024 8:00 AM EDT Office Visit [facility] [address] [place] [address] Sang Matthews MD, MPH [address] [place] [phone] [email or web address] 12/08/2024 11:50 AM EDT [facility] [address] [address] Malorie Mckeon MD [address] [place] [phone] [email or web address] Yenny Ramon MD 12/08/2024 1:00 PM EDT Office Visit [facility] Urology [address] [place] [address] Robinson Enrique MD [address] [facility] [place] [address] [email or web address] 12/08/2024 2:00 PM EDT Office Visit Adult Survivorship Program, [facility] [address] [place] [address] Malorie Mckeon MD [address] [place] [address] [email or web address] 02/13/2025 10:10 AM EDT Blood Draw Laboratory Services, [facility] [address] [place] [address] Etienne Zarate MD [address] [place] [address] [email or web address] 02/13/2025 11:00 AM EDT Office Visit Division of Hematologic Oncology, [facility] [address] [place] [address] Etienne Zarate MD [address] [place] [address] [email or web address] 03/07/2025 9:00 AM EDT Office Visit Adult Survivorship Program, [facility] [address] [place] [address] Wilder Melvin MD [address] [place] [id number] [email or web address] Health Maintenance Due Date Last Done Comments COLOGUARD 02/11/2012 COLONOSCOPY 02/11/2012 FIT TEST 02/11/2012 FOBT 02/11/2012 VIRTUAL COLONOSCOPY 02/11/2012 COLORECTAL CANCER SCREENING 07/08/2015 SIGMOIDOSCOPY 07/08/2015 07/08/2010 INFLUENZA VACCINE (#1) 2024 , 06/05/2022, 06/27/2021, Additional history exists COVID-19 VACCINE ( season) 2024 07/30/2021, 10/28/2020, 10/08/2020, Additional history exists PNEUMOCOCCAL VACCINES (50+ years) (3 of 3 - PPSV23, PCV20 or PCV21) 05/09/2024 05/09/2019, 06/21/2012, 08/18/2011, Additional history exists DEPRESSION SCREENING 12/23/2024 12/24/2023 CREATININE LEVEL 11/05/2025 11/05/2024, , 12/11/2023, Additional history exists POTASSIUM LEVEL 11/05/2025 11/05/2024, 05/08/2023, 12/11/2023, Additional history exists TSH LEVEL 11/05/2025 11/05/2024, 03/31, 02/11/2023, Additional history exists SCREENING FOR DIABETES 11/06/2027 11/05/2024, 2022 Adult Td,Tdap Booster 05/09/2029 05/09/2019, 012 LIPID PANEL 11/05/2029 11/05/2024, 03/0 03/2025, 02/11/2023, Additional history exists HIB VACCINES Aged Out 06/21/2012, 07/31, 06/16/2011 No longer eligible based on patient's age to complete this topic HEPATITIS C SCREENING Completed 01/12/2014 , 02/24/2013, 02/24/2013, Additional history exists HIV ONE-TIME SCREENING (18-65 YEARS) Completed 01/12/2014 ZOSTER VACCINES Completed 09/07/2019, 05/09/2019 HEPATITIS A VACCINES Aged Out 12/30/2022 No long er eligible based on patient's age to complete this topic MENINGOCOCCAL VACCINES (ACWY) Aged Out 12/30/2022, 06/16/2011 No longer eligibl e based on patient's age to complete this topic SMOKING STATUS SCREENING (Once After 26 Yrs) Completed 11/07/2024 Medical Devices Implanted Type Area Egg Processor Device Identifier Shelf Expiration Date Model / Serial / Lot Septal Occluder Cardioform 30mm - [id number] Implanted:Qty: 1 on 10/12/2017 by Efrain Prieto MD at [facility] Septal Defect Closure Device W [employer] GORE 08/27/2019 [id number] / [id number] / Description:Per Felicitas- Miguelangel re Cardioform Septal Occluder is Conditional 8 for 1.5T and 3T. gb Stent Percuflex 6fr 26cm Urological Double Pigtail Taper Tip Threaded Hydroplus Coated Radiopaque - Sn/A Implanted:Qty: 1 on 07/14/2022 by Robinson Enrique MD at [facility] Ureteral Stent Right: Ureter [employer] 04/10/2025 [id number] 30 / N/A / [id number] Stent Percuflex 6fr 26cm Urological Double Pigtail Taper Tip Threaded Hydroplus Coated Radiopaque - Sn/A Implanted:Qty: 1 on 07/14/2022 by Robinson Enrique MD at [facility] Ureteral Stent Left: Ureter [employer] 04/10/2025 [id number] 30 / N/A / [id number] Procedures Procedure Name Priority Date/Time Associated Diagnosis [...] 11/07/2024 2:46 PM EDT Steroid responder, bilateral TSH WITH CASCADE Routine 11/05/2024 9:54 AM EST PSA Routine 11/05/2024 9:54 AM EST DIRECT LDL Routine 11/05/2024 9:54 AM EST LIPID PANEL Routine 11/05/2024 9:54 AM EST COMPREHENSIVE METABOLIC PANEL Routine 11/05/2024 9:54 AM EST CBC AND DIFFERENTIAL Routine 11/05/2024 9:54 AM EST URINALYSIS W/REFLEX URINE CULTURE Routine 11/05/2024 9:54 AM EST HISTORICAL LAB Routine 01/12/2014 11:05 AM EDT ENDOSCOPY, SIGMOID 07/08/2010 8: 08 AM EST from Last 3 Months or Most Recently Relevant to Health Maintenance Results * OCT, RETINA - OU - BOTH EYES - Cirrus; Retina (11/07/2024 11:07 PM EDT) Narrative [facility] - 11/07/2024 11:07 PM EDT - MAC OCT (11/07/24) OU WNL Tiffanie Capone MD, PhD OPHTHALMOLOGY HERMINIO OMER HARMONY * OCT, Optic Nerve - OU - Both Eyes - Cirrus; RNFL, GCC (11/07/2024 11:07 PM EDT) Narrative [facility] - 11/07/2024 11:07 PM EDT - RNFL OCT (11/07/24) OU WNL Tiffanie Capone MD, PhD OPHTHALMOLOGY HERMINIO OMER Performing Organization Address [facility] de Phone Number EDNA * Optical Biometry - OU - Both Eyes (11/07/2024 11:07 PM EDT) Narrative [facility] - 11/07/2024 11:07 PM EDT I have reviewed the biometry data. Tiffanie Capone MD, PhD OPHTHALMOLOGY HERMINIO OMER Performing Organization Address [facility] de Phone Number EDNA * Ledbetter Visual Field - OU - Both Eyes (11/07/2024 2:46 PM EDT) Narrative [facility] - 11/07/2024 11:08 PM EDT Right Eye Pattern: 24-2. Left Eye Pattern: 24-2. General Details Testing performed by: shola. Notes - HVF 24-2 (11/07/24) OD full reliable ?? OS essentially full, reliable Tiffanie Capone MD, PhD OPHTHALMOLOGY HERMINIO OMER Performing Organization Address [facility] de Phone Number EDNA * TSH with [place] (11/05/2024 9:54 AM EST) TSH [place] 1.836 0.358 - 3.740 u[iU]/mL [facility] 11/05/2024 9:54 AM EST Henrik Johnson MD LAB BLOOD ORDER KAROLYN Performing Organization Address [facility] Co de Phone Number [address] [phone] * (ABNORMAL) Urinalysis w/reflex Urine Culture (11/05/2024 9:54 AM EST) Color Urine Dark Yellow(A) Yellow [facility] Appearance Urine Clear Clear [facility] pH Urine 6.5 5.0 - 8.0 [facility] Specific [place] Urine 1.016 1.002 - 1.035 [facility] Protein Urine Negative <30 [facility] Glucose Urine UA Negative <50 [facility] Ketones Urine Negative <5 [facility] Occult Blood Urine Negative Negative [facility] Nitrite Urine Negative Negative [facility] Bilirubin Urine Negative Negative [facility] Urobilinogen Urine 0.2 0.2 - 1.0 {EhrlichU}/ dL [facility] Leukocyte Esterase Urine Negative Negative [facility] 11/05/2024 9:54 AM EST Narrative [facility] - 11/05/2024 2:58 PM EST Urine Source: Urine Henrik Johnson MD URINE ORDERABLE S Performing Organization Address [facility] Co de Phone Number [address] [phone] * PSA (11/05/2024 9:54 AM EST) Prostate Specific Antigen 2.57 <0.04 - 4.0 ng/mL [facility] Comment: Assay performed on the Covestor utilizing direct chemiluminescent methodology. Patient results determined by assays using different manufacturers or methods may not be comparable. Although this assay has an undetectable range of <0.04 ng/mL, readings of 0.04 or 0.05 ng/mL have been measured in patients clinically deemed unlikely to have significant levels of PSA (e.g. post-menopausal females or males with undetectable PSA on another method). Therefore, values in this range should be interpreted with caution. 11/05/2024 9:54 AM EST Henrik Johnson MD LAB BLOOD ORDER KAROLYN [address] [address], [facility] [phone] * (ABNORMAL) Direct LDL (11/05/2024 9:54 AM EST) LDL Cholesterol Direct 105.0(H) <100 mg/dL [facility] 11/05/2024 9:54 AM EST Henrik Johnson MD LAB BLOOD ORDER KAROLYN [place] [id number], [facility] [phone] * (ABNORMAL) Comprehensive metabolic panel (11/05/2024 9:54 AM EST) Sodium 139 136 - 145 mmol/L [facility] Potassium 5.6(H) 3.5 - 5.1 mmol/L [facility] Chloride 103 98 - 107 mmol/L [facility] Carbon Dioxide 28 20 - 31 mmol/L [facility] Anion Gap 8 5 - 15 mmol/L [facility] Glucose Random 103 74 - 106 mg/dL [facility] Blood Urea Nitrogen 26(H) 9 - 23 mg/dL [facility] Serum Creatinine 1.27 0.70 - 1.30 mg/dL [facility] Glomerular Filtration Rate Est 66 >60 [facility] Comment: Units - mL/min/1.73 msq CKD-EPI Creatinine Equation (2020) used as recommended by The [employer] Kid[employer]. Start date (10/07/22). Calcium 11.3(H) 8.3 - 10.6 mg/dL [facility] Comment: Please Note: New method for Calcium testing live 07/11/2024. ? New reference range live 07/11/2024. Total Protein 7.6 5.7 - 8.2 g/dL [facility] Albumin Level 5.0(H) 3.2 - 4.8 g/dL [facility] Globulin 3.0 2.0 - 3.5 g/dL [facility] Alkaline Phosphatase 68 46 - 116 U/L [facility] ALT 65(H) 10 - 49 U/L [facility] AST 48(H) 13 - 40 U/L [facility] Bilirubin Total 0.4 0.3 - 1.2 mg/dL [facility] 11/05/2024 9:54 AM EST Henrik Johnson MD LAB BLOOD ORDER KAROLYN [facility] [address] [place] [address], [facility] [phone] * (ABNORMAL) CBC and differential (11/05/2024 9:54 AM EST) WBC 7.4 4.0 - 11.0 10*3/uL [facility] RBC 5.04 4.2 - 6.0 10*6/uL [facility] HGB 15.7 12.0 - 16.0 g/dL [facility] HCT 47.0 39.0 - 54.0 % [facility] MCV 93.3 80.0 - 96.0 fL [facility] MCH 31.2(H) 27.0 - 31.0 pg [facility] MCHC 33.4 32.0 - 36.0 g/dL [facility] RDW-CV 12.5(L) 12.8 - 18.4 % [facility] PLT 318 140 - 400 10*3/uL [facility] MPV 10.3 8.0 - 12.0 fL [facility] Neut Pct Auto 33.5(L) 50 - 70 % [facility] Lymp Pct Auto 51.9(H) 25 - 45 % [facility] [place] Pct Auto 10.9 4 - 13 % [facility] Eos Pct Auto 1.9 0 - 5 % [facility] Baso Pct Auto 1.1 0 - 2 % [facility] I.G. Pct Auto 0.7(H) 0.0 - 0.5 % [facility] NRBC Pct Auto 0.0 0.0 - 0.2 % [facility] Neut Abs Auto 2.5 2.2 - 4.8 10*3/uL [facility] Lymph Abs Auto 3.8(H) 1.3 - 2.9 10*3/uL [facility] [place] Abs Auto 0.80 0.3 - 0.8 10*3/uL [facility] Eos Abs Auto 0.1 0.0 - 0.2 10*3/uL [facility] Baso Abs Auto 0.1 0.0 - 0.1 10*3/uL [facility] I.G. Abs Auto 0.05 0.00 - 0.08 10*3/uL [facility] NRBC Abs Auto 0.00 0.000 - 0.012 10*3/uL [facility] 11/05/2024 9:54 AM EST Henrik Johnson MD LAB BLOOD ORDER KAROLYN Performing Organization Address [facility] Co de Phone Number [address] [phone] * (ABNORMAL) Lipid panel (11/05/2024 9:54 AM EST) Cholesterol 207(H) <200 mg/dL [facility] Triglycerides 287(H) <150 mg/dL [facility] HDL Cholesterol 34(L) >=60 mg/dL [facility] LDL Cholesterol Calculated Test not performed <100 [facility] Chol HDL Ratio 6.0(H) <5.0 [facility] 11/05/2024 9:54 AM EST Henrik Johnson MD LAB BLOOD ORDER KAROLYN Performing Organization Address [facility] [place] [address], [facility] [phone] * Historical Lab (01/12/2014 11:05 AM EDT) Hepatitis C Virus IgG Antibodies Nonreactive Nonreactive [facility] Signal to Cutoff 0.06 <1.00 [facility] Comment: @ Test Performed By: ?? [employer] ?? Ady Flores M.D., FCAP., Medical Officer Psychiatry ?? [address] [place] [address] ?? [place] [address] ?? CLIA #[id number] Hepatitis B Virus Core Total Antibodies Nonreactive Nonreactive [facility] Comment: @ Test Performed By: ?? [employer] ?? Ady Flores M.D., AP., Medical Officer Psychiatry ?? [address] [facility] ?? [place] [address] ?? [facility] #[id number] 01/12/2014 11:0 5 AM EDT 01/12/2014 11:05 AM EDT Narrative [facility] - 01/16/2014 6:52 AM EDT SPECIAL INSTRUCTIONS serum tears workup Andres Milner MD,MPH,MSc [place] [address], [facility] * ENDOSCOPY, SIGMOID (07/08/2010 8:08 AM EST) 07/08/2010 8:08 AM EST Narrative 07/08/2010 12:00 PM EST Report Number: ??[id number] ?Report Status: Signed Type: ??Flexible Sigmoidoscopy Date: ??07/08/2010 08:08 [facility] Gastroenterology Patient Name: Nick Watts Procedure Date: 07/08/2010 8:08 AM Date of : 1965 Admit Type: Outpatient Age: 45 Room: 7 Gender: Male Note Status: Finalized Attending MD: Lynsey Brennan MD ([facility]) Procedure: ? Flexible Sigmoidoscopy Indications: ? Diarrhea Providers: ? Lynsey Brennan MD ([facility]), Bipin ? PRANAV Valentino Referring MD: ?HENRIK JOHNSON (Referring MD) Medicines: ? See the other procedure note for ? documentation of the administered medications Complications: ? No immediate complications Procedure: ? Pre-Anesthesia Assessment: ? - Prior to the procedure, a History and ? Physical was performed, and patient ? medications and allergies were reviewed. The ? patient is competent. The risks and benefits ? of the procedure and the sedation options ? and risks were discussed with the patient. ? All questions were answered and informed ? consent was obtained. Patient identification ? and proposed procedure were verified by the ? physician and the nurse in the procedure ? room. Mental Status Examination: alert and ? oriented. Airway Examination: normal ? oropharyngeal airway and neck mobility. ? Respiratory Examination: clear to ? auscultation. CV Examination: normal. ? Prophylactic Antibiotics: The patient does ? not require prophylactic antibiotics. Prior ? Anticoagulants: The patient has taken no ? previous anticoagulant or antiplatelet ? agents. ASA Grade Assessment: II - A patient ? with mild systemic disease. After reviewing ? the risks and benefits, the patient was ? deemed in satisfactory condition to undergo ? the procedure. The anesthesia plan was to ? use moderate sedation / analgesia (conscious ? sedation). Immediately prior to ? administration of medications, the patient ? was re-assessed for adequacy to receive ? sedatives. The heart rate, respiratory rate, ? oxygen saturations, blood pressure, adequacy ? of pulmonary ventilation, and response to ? care were monitored throughout the ? procedure. The physical status of the ? patient was re-assessed after the procedure. ? After informed consent was obtained, the ? endoscope was passed under direct vision. ? Throughout the procedure, the patient's ? blood pressure, pulse, and oxygen ? saturations were monitored continuously. The ? Endoscope was introduced through the anus ? and advanced to the sigmoid colon. The ? flexible sigmoidoscopy was accomplished ? without difficulty. The patient tolerated ? the procedure well. The quality of the bowel ? preparation was good. Findings: ? The perianal and digital rectal examinations were normal. ? Pertinent negatives include normal sphincter tone, no ? palpable rectal lesions and no anal lesion or abnormality ? was detected. The entire examined colon appeared normal, ? biopsied for CMV and histology. Impression: ?- The entire examined colon is normal. This ? was biopsied for histolory and CMV. Recommendation: ?- [facility] ? ongoing care. ? - Await pathology results. Lynsey Brennan MD ([facility]) Signed Date: 07/08/2010 11:59 AM Number of Addenda: 0 This report has been signed electronically. Note initiated on 07/08/2010 8:08 AM Procedure Note Lynsey Brennan MD - 07/08/2010 8:08 AM EST Report Number: [id number] Report Status: Signed Type: Flexible Sigmoidoscopy Date: 07/08/2010 08:08 [facility] Gastroenterology Patient Name: Nick Watts Procedure Date: 07/08/2010 8:08 AM Date of : 1965 Admit Type: Outpatient Age: 45 Room: 7 Gender: Male Note Status: Finalized Attending MD: Lynsey Brennan MD ([facility]) Procedure: Flexible Sigmoidoscopy Indications: Diarrhea Providers: Lynsey Brennan MD ([facility]), Bipin Valentino RN Referring MD: HENRIK JOHNSON (Referring MD) Medicines: See the other procedure note for documentation of the administered medications Complications: No immediate complications Procedure: Pre-Anesthesia Assessment: - Prior to the procedure, a History and Physical was performed, and patient medications and allergies were reviewed. The patient is competent. The risks and benefits of the procedure and the sedation options and risks were discussed with the patient. All questions were answered and informed consent was obtained. Patient identification and proposed procedure were verified by the physician and the nurse in the procedure room. Mental Status Examination: alert and oriented. Airway Examination: normal oropharyngeal airway and neck mobility. Respiratory Examination: clear to auscultation. CV Examination: normal. Prophylactic Antibiotics: The patient does not require prophylactic antibiotics. Prior Anticoagulants: The patient has taken no previous anticoagulant or antiplatelet agents. ASA Grade Assessment: II - A patient with mild systemic disease. After reviewing the risks and benefits, the patient was deemed in satisfactory condition to undergo the procedure. The anesthesia plan was to use moderate sedation / analgesia (conscious sedation). Immediately prior to administration of medications, the patient was re-assessed for adequacy to receive sedatives. The heart rate, respiratory rate, oxygen saturations, blood pressure, adequacy of pulmonary ventilation, and response to care were monitored throughout the procedure. The physical status of the patient was re-assessed after the procedure. After informed consent was obtained, the endoscope was passed under direct vision. Throughout the procedure, the patient's blood pressure, pulse, and oxygen saturations were monitored continuously. The Endoscope was introduced through the anus and advanced to the sigmoid colon. The flexible sigmoidoscopy was accomplished without difficulty. The patient tolerated the procedure well. The quality of the bowel preparation was good. Findings: The perianal and digital rectal examinations were normal. Pertinent negatives include normal sphincter tone, no palpable rectal lesions and no anal lesion or abnormality was detected. The entire examined colon appeared normal, biopsied for CMV and histology. Impression: - The entire examined colon is normal. This was biopsied for histolory and CMV. Recommendation: - [facility] for [facility] care. - Await pathology results. Lynsey Brennan MD ([facility]) Signed Date: 07/08/2010 11:59 AM Number of Addenda: 0 This report has been signed electronically. Note initiated on 07/08/2010 8:08 AM Conversion Provider Not In Sys GI PROCED URE ORDERABLES from Last 3 Months or Most Recently Relevant to Health Maintenance Advance Directives For more information, please contact: [phone] (9AM - 5PM [facility], Thursday-Thursday) Documents on File Type Date Recorded Patient Dials Inspector Expl anation Living Will 10/15/2017 11:48 AM Healthcare Proxy 10/15/2017 11:46 AM stuart d on 03/04/10 * Full Code (Presumed) (Latest Code Status on File) Date Activated Date Inactivated Comments 10/12/2017 6:37 PM 10/13/2017 3:32 PM Care Teams Card Services Specialist Relationship Specialty Start Date End Date Kimberly Raman MD 20 [facility] - 4th [place] [address] [email or web address] PCP - General Internal Medicine 05/21/22 [place] [address] [email or web address] PCP - Resident PCP Physician Freezer Laboratory Technician 05/21/22 Frankie Marion MD [address] [place] [address] Historical LMR Provider 01/13/15 Rosas Triana MD 165 [place] [address] [email or web address] Historical LMR Provider 01/13/15 Eduardo Chen, [facility] ROSLYN [address] [place] [address] [email or web address] Endocrinology 05/12/17 Billy Tsang, RN [address] [place] [address] [email or web address] Primary Infusion Nurse 09/09/17 Additional Source Comments The information contained in this document represents components of the legal health record. It is not the complete legal health record.[facility]
--- OUTSIDE RECORDS SUMMARY | 2024-11-08 18:25 | XMS_ITS | Encounter Summary ---
Author Organization [facility] Address [address] [place] [address] Phone Care Team Providers Care Top Collar Maker Name Role Phone Luis M Dempsey MD Primary Care Provider Frankie Marion MD Unavailable [phone] Khoa Mattson MD Unavailable [phone] Rosas Triana MD Unavailable Yamel Osborne MD Unavailable [phone] Eduardo Chen [facility] Unavailable Billy Tsang RN Unavailable [phone] Kimberly Raman MD Primary Care Provider Ahser Coleman PA-C Unavailable Encounter Details Date Type Department Care Team (Latest Contact Info) Description 02/01/[address] [facility] [address] [address] Olga Felix MD [address] [place] [address] [email or web address] Dry eyes (Primary Dx) Social History Tobacco [...] Description 11/09/2024 8:00 AM EDT Office Visit [facility] [address] [address] Sang Matthews MD, MPH 221 [place] [address] [email or web address] 12/08/2024 11:50 AM EDT Blood Draw Laboratory Services, [facility] [address] [facility] 2 [place] [address] Malorie Mckeon MD [address] [place] [address] [email or web address], MD Yenny 12/08/2024 1:00 PM EDT Office Visit [facility] Urology [address] [address] Robinson Enrique MD [address] [place], [place] [address] [address] [email or web address] 12/08/2024 2:00 PM EDT Office Visit Adult Survivorship Program, [facility] [address] [facility], Wy 6 [place] [address] Malorie Mckeon MD [address] [place] [address] [email or web address] 02/13/2025 10:10 AM EDT Blood Draw Laboratory Services, [facility] [address] [facility] 2 [place] [address] Etienne Zarate MD 450 [place] [address] [email or web address] 02/13/2025 11:00 AM EDT Office Visit Division of Hematologic Oncology, [facility] [address] [facility] 8 [place] [address] Etienne Zarate MD [address] [place] [address] [email or web address] 03/07/2025 9:00 AM EDT Office Visit Adult Survivorship Program, [facility] [address] [facility] [address] 6 [place] [address] Wilder Melvin MD [address] [place] [address] [email or web address] documented as of this encounter Visit Diagnoses Diagnosis Dry eyes- Primary Unspecified tear film insufficiency documented in this encounter Additional Health Concerns Infection Onset Date Last Indicated Resolved Time CoV-Risk 03/27/2021 03/27/2021 04/06/2021 1:24 AM EDT Assessment Noted Time PHQ-2 Depression Total Score: 0 11/20/19 18 3:34 PM EDT documented as of this encounter Care Teams Top Collar Maker Relationship Specialty Start Date End Date Luis M Dempsey MD [address] [place] [address] [place] [address] PCP - General 02/28/14 05/20/22 Kimberly Raman MD [address] [place] [address] Primary Care - 4th [place] [address] [email or web address] PCP - General Internal Medicine 05/21/22 Asher Coleman PA-C 20 [place] [address] [email or web address] PCP - Resident PCP Physician Councilor 05/21/22 Frankie Marion MD [address] [place] [address] Historical LMR Provider 01/13/15 Khoa Mattson MD [address] [place] [address] Historical LMR Provider 01/13/15 2 Rosas Triana MD 165 [place] [address] [email or web address] Historical LMR Provider 01/13/15 Yamel Osborne MD [address] [place] [address] [email or web address] Historical LMR Provider 01/13/15 09/07/21 Eduardo Chen [facility] ROSLYN [address] [place] [address] [email or web address] Endocrinology 05/12/17 Billy Tsang RN [address] [place] [address] [email or web address] Primary Infusion Nurse 09/09/17 documented as of this encounter Additional Source Comments The information contained in this document represents components of the legal health record. It is not the complete legal health record.[facility]
--- OUTSIDE RECORDS SUMMARY | 2024-11-08 18:25 | XMS_ITS | Encounter Summary ---
Author Organization [facility] Address [address] [place] [address] Phone Care Team Providers Care Delivery Truck Driver Heavy Name Role Phone Luis M Dempsey MD Primary Care Provider Frankie Marion MD Unavailable Khoa Mattson MD Unavailable [phone] Rosas Triana MD Unavailable Yamel Osborne MD Unavailable [phone] [facility] Unavailable Billy Tsang RN Unavailable Kimberly Raman MD Primary Care Provider Asher Coleman PA-C Unavailable Encounter Details Date Type Department Care Team (Latest Contact Info) Description 09/24/2017 Transcribe Orders [facility] [address] [address] Andres Milner MD,MPH,MSc [address] [place] [address] [email or web address] Dry eye (Primary Dx) Social History Tobacco Use Types [...] Description 11/09/2024 8:00 AM EDT Office Visit [facility] [address] [address] Sang Matthews MD, MPH [address] [place] [address] [email or web address] 12/08/2024 11:50 AM EDT Blood Draw Laboratory Services, [facility] 450 [facility] 2 [place] [address] Malorie Mckeon MD [address] [place] [address] [email or web address] Unknown, Yenny, 12/08/2024 1:00 PM EDT Office Visit [facility] Urology [address] [place] [address] [address] Robinson Enrique MD [address] [place], [place] [address] [address] [email or web address] 12/08/2024 2:00 PM EDT Office Visit Adult Survivorship Program, [facility] [address] [employer] [facility], Fl 6 [place] [address] Malorie Mckeon MD [address] [place] [address] [email or web address] 02/13/2025 10:10 AM EDT Blood Draw Laboratory Services, [facility] [address] [facility] 2 [place] [address] Etienne Zarate MD [address] [place] [address] [email or web address] 02/13/2025 11:00 AM EDT Office Visit Division of Hematologic Oncology, [facility] [address] [facility], Fl 8 [place] [address] Etienne Zarate MD [address] [place] [address] [email or web address] 03/07/2025 9:00 AM EDT Office Visit Adult Survivorship Program, [facility] [address] [facility], Fl 6 [place] [address] Wilder Melvin MD [address] [place] [address] [email or web address] documented as of this encounter Results * Autologous serum for tears lab blood draw ([facility] (09/24/2017 11:29 AM EST) Tubes Drawn 6 [facility] 09/24/2017 11:2 9 AM EST 09/24/2017 11:51 AM EST Andres Milner MD,MPH,MSc LAB BLOOD ORDERABLE [facility] [address] documented in this encounter Visit Diagnoses Diagnosis Dry eye- Primary documented in this encounter Additional Health Concerns Infection Onset Date Last Indicated Resolved Time CoV-Risk 03/27/2021 03/27/2021 04/06/2021 1:24 AM EDT Assessment Noted Time PHQ-2 Depression Total Score: 0 09/10/19 18 3:10 PM EST documented as of this encounter Care Teams Delivery Truck Driver Heavy Relationship Specialty Start Date End Date Luis M Dempsey MD [address] [place] [address] [place] [address] PCP - General 02/28/14 05/20/22 Kimberly Raman MD 20 [facility] Primary Care - [address] [place] [address] [email or web address] PCP - General Internal Medicine 05/21/22 Asher Coleman PA-C 20 [place] [address] PCP - Resident PCP Physician Hunter Guide 05/21/22 Frankie Marion MD [address] [place] [address] Historical LMR Provider 01/13/15 Khoa Mattson MD [address] [place] [address] Historical LMR Provider 01/13/15 2 Rosas Triana MD [address] [place] [address] [email or web address] Historical LMR Provider 01/13/15 Yamel Osborne MD [address] [place] [address] [email or web address] Historical LMR Provider 01/13/15 09/07/21 Eduardo Chen [facility] ROSLYN [facility] [place] [address] [email or web address] Endocrinology 05/12/17 Billy Tsang, PRANAV [address] [place] [address] [email or web address] Primary Infusion Nurse 09/09/17 documented as of this encounter Additional Source Comments The information contained in this document represents components of the legal health record. It is not the complete legal health record.[facility]
--- OUTSIDE RECORDS SUMMARY | 2024-11-08 18:25 | XMS_ITS ---
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 Past Plans No past plan information found. Radiation Treatments * No radiation treatments are documented for this patient in [facility]. Treatments may have been administered in another system. Lifetime Dose Tracking * Chemical Lifetime Dose Automatic Entry Manual Entr y Invasive Cardiology Radiation Exposure 189.99 mGy 0 mGy 189.99 mGy
--- OUTSIDE RECORDS SUMMARY | 2024-11-08 18:25 | XMS_ITS | Encounter Summary ---
Author Organization [facility] Address [address] [place] [address] Phone Care Team Providers Care Program And Research Coordinator Name Role Phone Unavailable Primary Care Provider Unavailabl e Encounter Details Date Type Department Care Team (Late st Contact Info) Description 04/26/2016 Documentation [facility] DEPARTMENT 1 [place] [address] Social History Tobacco Use Types Packs/Day Years Used Date Smoking Tobacco: Never Assessed Sex and Gender Information Value Date Recorded Sex Assigned at Not on file Gender Identity Not on file Sexual Orientation Not on file documented as of this encounter Plan of Treatment Not on file documented as of this encounter Visit Diagnoses Not on filedocumented in this encounter
--- OUTSIDE RECORDS SUMMARY | 2024-11-08 18:25 | XMS_ITS | Encounter Summary ---
Author Organization [facility] Address [address] [place] [address] Phone Care Team Providers Care Cane Weigher Helper Name Role Phone Luis M Dempsey MD Primary Care Provider Frankie Marion MD Unavailable Ayan Anderson NP Unavailable Khoa Mattson MD Unavailable [phone] Rosas Triana MD Unavailable Yamel Osborne MD Unavailable [phone] Luis M Dempsey MD Unavailable Eduardo Chen [facility] ROSLYN Unavailable Billy Tsang RN Unavailable [phone] Kimberly Raman MD Primary Care Provider [phone] Asher Coleman PA-C Unavailable Encounter Details Date Type Department Care Team (Late st Contact Info) Description 08/19/2017 Procedure [facility] 75 [place] [address] Social History Tobacco Use Types Packs/Day Years [...] Description 11/09/2024 8:00 AM EDT Office Visit [facility] [address] [address] Sang Matthews MD, MPH 221 [place] [address] [email or web address] 12/08/2024 11:50 AM EDT Blood Draw Laboratory Services, [facility] [address] [facility] Fl 2 [place] [address] Malorie Mckeon MD [address] [place] [address] [email or web address] Unknown, MD Yenny 12/08/2024 1:00 PM EDT Office Visit [facility] Urology [address] [address] Robinson Enrique MD [address] [place] [address] [email or web address] 12/08/2024 2:00 PM EDT Office Visit Adult Survivorship Program, [facility] [address] [facility], Fl 6 [place] [address] Malorie Mckeon MD [address] [place] [address] @[facility] 02/13/2025 10:10 AM EDT Blood Draw Laboratory Services, [facility] [address] [facility] 2 [place] [address] Etienne Zarate MD 450 [place] [address] [email or web address] 02/13/2025 11:00 AM EDT Office Visit Division of Hematologic Oncology, [facility] 450 [facility], Fl 8 [place] [address] Etienne Zarate MD 450 [place] [address] [email or web address] 03/07/2025 9:00 AM EDT Office Visit Adult Survivorship Program, [facility] 450 [facility], Fl 6 [place] [address] Wilder Melvin MD [address] [place] [address] [email or web address] documented as of this encounter Visit Diagnoses Not on filedocumented in this encounter Additional Health Concerns Infection Onset Date Last Indicated Resolved Time CoV-Risk 03/27/2021 03/27/2021 04/06/2021 1:24 AM EDT Assessment Noted Time PHQ-2 Depression Total Score: 0 09/10/19 18 3:10 PM EST documented as of this encounter Care Teams Cane Weigher Helper Relationship Specialty Start Date End Date Luis M Dempsey MD [address] [place] [address] [place] [address] PCP - General 02/28/14 05/20/22 Kimberly Raman MD [address] [place] [address] Primary Care - 4th [place] [address] [email or web address] PCP - General Internal Medicine 05/21/22 Asher Coleman Ci, PA-C 20 [place] [address] [email or web address] PCP - Resident PCP Physician Commercial Credit Head 05/21/22 Frankie Marion MD [address] [place] [address] Historical LMR Provider 01/13/15 Ayan Anderson, SIGHTSEEING GUIDE [address] [place], [place] [address] [address] [email or web address] Historical LMR Provider 01/13/15 09/06/17 Khoa Mattson MD [address] [place] [address] Historical LMR Provider 01/13/15 2 Rosas Triana MD [address] [place] [address] [email or web address] Historical LMR Provider 01/13/15 Yamel Osborne MD [address] [place] [address] [email or web address] Historical LMR Provider 01/13/15 09/07/21 Luis M Dempsey MD [address] [place] [address] [place] [address] Referring Physician Internal Medicine 11/06/15 09/06/17 Eduardo Chen, [facility] ROSLYN [address] [place] [address] [email or web address] 05/12/17 Billy Tsang, RN [address] [place] [address] [email or web address] Primary Infusion Nurse 09/09/17 documented as of this encounter Additional Source Comments The information contained in this document represents components of the legal health record. It is not the complete legal health record.[facility]
--- OUTSIDE RECORDS SUMMARY | 2024-11-08 18:25 | XMS_ITS | Encounter Summary ---
Author Organization [facility] Address [address] [place] [address] Phone Care Team Providers Care Assembler 1St Shift Name Role Phone Luis M Dempsey MD Primary Care Provider Frankie Marion MD Unavailable Rosas Triana MD Unavailable Eduardo Chen [facility] Unavailable Billy Tsang RN Unavailable [phone] Kimberly Raman MD Primary Care Provider Asher Coleman PA-C Unavailable Encounter Details Date Type Department Care Team (Late st Contact Info) Description 03/24/[address] [facility] [place] On[place] [address] [place] [address] Paresh Smith MD [address] [place], [place] [address] [place] [address] [email or web address] Pain Social History Tobacco Use Types Packs/Day Years [...] Description 11/09/2024 8:00 AM EDT Office Visit [facility] [address] [address] Sang Matthews MD, MPH 221 [place] [address] [email or web address] 12/08/2024 11:50 AM EDT Blood Draw Laboratory Services, [facility] [address] [facility] [address] [place], [place] Malorie Mckeon MD [address] [place] [address] @[facility] Unknown, Yenny, 12/08/2024 1:00 PM EDT Office Visit [facility] Urology [address] [address] Robinson Enrique MD [address] [address] [email or web address] 12/08/2024 2:00 PM EDT Office Visit Adult Survivorship Program, [facility] [address] [facility] 6 [place] [address] Malorie Mckeon MD [address] [place] [address] [email or web address] 02/13/2025 10:10 AM EDT Blood Draw Laboratory Services, [facility] [address] [facility] [address] [place], [place] Etienne Zarate MD 450 [place] [address] [email or web address] 02/13/2025 11:00 AM EDT Office Visit Division of Hematologic Oncology, [facility] [address] [facility] [place] [address] Etienne Zarate MD 450 [place] [address] [email or web address] 03/07/2025 9:00 AM EDT Office Visit Adult Survivorship Program, [facility] 450 [place] [facility], [address] 6 [place] [address] Wilder Melvin MD [address] [place] [address] [email or web address] documented as of this encounter Results * XR KNEE 4 OR MORE VIEWS (LEFT) (03/24/2022 10:24 AM EDT) Anatomical Region Laterality Modality Knee Left Computed Radiogr aphy 03/24/2022 12:1 3 PM EDT Impressions 03/24/2022 12:17 PM EDT Redemonstration of osteonecrosis bilaterally. Slightly increased reticular surface irregularity in the right medial femoral condyle could represent progression of articular surface collapse. Narrative 03/24/2022 12:17 PM EDT XR KNEE 4 OR MORE VIEWS (RIGHT), XR KNEE 4 OR MORE VIEWS (LEFT) COMPARISON: XRKNE1/RIGHT ; [facility] MR RIGHT LOWER EXTREMITY JNT WO [id number] RT (accession [id number]), XRKNE1/LEFT (accession [id number]) FINDINGS: Right Knee: Again noted are findings of osteonecrosis in the distal femur, and to a lesser extent in the proximal tibia. Redemonstrated are operative lucencies in the distal femur. Articular surface irregularity in the weightbearing-posterior medial femoral condyle appears slightly increased compared to May 2014. Mild patellofemoral degenerative changes. No displaced fracture. No joint effusion. Left knee: Again noted are findings of osteonecrosis with articular surface collapse. Mild patellofemoral degenerative changes. No displaced fracture. No joint effusion. Procedure Note Randy Arteaga MD - 03/24/2022 XR KNEE 4 OR MORE VIEWS (RIGHT), XR KNEE 4 OR MORE VIEWS (LEFT) COMPARISON: XRKNE1/RIGHT ; [facility] MR RIGHT LOWER EXTREMITY JNT [id number] RT (accession [id number]), XRKNE1/LEFT (accession [id number]) FINDINGS: Right Knee: Again noted are findings of osteonecrosis in the distal femur,and to a lesser extent in the proximal tibia. Redemonstrated are operativelucencies in the distal femur. Articular surface irregularity in theweightbearing-posterior medial femoral condyle appears slightly increasedcompared to May 2014. Mild patellofemoral degenerative changes. Nodisplaced fracture. No joint effusion. Left knee: Again noted are findings of osteonecrosis with articularsurface collapse. Mild patellofemoral degenerative changes. No displacedfracture. No joint effusion. IMPRESSION: Redemonstration of osteonecrosis bilaterally. Slightly increased reticular surface irregularity in the right medialfemoral condyle could represent progression of articular surfacecollapse. Paresh Smith MD IMG XR LOWER EXTR EMITY * XR KNEE 4 OR MORE VIEWS (RIGHT) (03/24/2022 10:23 AM EDT) Anatomical Region Laterality Modality Knee Right Computed Radiogr aphy 03/24/2022 12:1 3 PM EDT Impressions 03/24/2022 12:17 PM EDT Redemonstration of osteonecrosis bilaterally. Slightly increased reticular surface irregularity in the right medial femoral condyle could represent progression of articular surface collapse. Narrative 03/24/2022 12:17 PM EDT XR KNEE 4 OR MORE VIEWS (RIGHT), XR KNEE 4 OR MORE VIEWS (LEFT) COMPARISON: XRKNE1/RIGHT ; [facility] MR RIGHT LOWER EXTREMITY JNT WO 8019 RT (accession [id number]), XRKNE1/LEFT (accession [id number]) FINDINGS: Right Knee: Again noted are findings of osteonecrosis in the distal femur, and to a lesser extent in the proximal tibia. Redemonstrated are operative lucencies in the distal femur. Articular surface irregularity in the weightbearing-posterior medial femoral condyle appears slightly increased compared to May 2014. Mild patellofemoral degenerative changes. No displaced fracture. No joint effusion. Left knee: Again noted are findings of osteonecrosis with articular surface collapse. Mild patellofemoral degenerative changes. No displaced fracture. No joint effusion. Procedure Note Randy Arteaga MD - 03/24/2022 XR KNEE 4 OR MORE VIEWS (RIGHT), XR KNEE 4 OR MORE VIEWS (LEFT) COMPARISON: XRKNE1/RIGHT ; [facility] MR RIGHT LOWER EXTREMITY JNT [id number] RT (accession [id number]), XRKNE1/LEFT (accession [id number]) FINDINGS: Right Knee: Again noted are findings of osteonecrosis in the distal femur,and to a lesser extent in the proximal tibia. Redemonstrated are operativelucencies in the distal femur. Articular surface irregularity in theweightbearing-posterior medial femoral condyle appears slightly increasedcompared to May 2014. Mild patellofemoral degenerative changes. Nodisplaced fracture. No joint effusion. Left knee: Again noted are findings of osteonecrosis with articularsurface collapse. Mild patellofemoral degenerative changes. No displacedfracture. No joint effusion. IMPRESSION: Redemonstration of osteonecrosis bilaterally. Slightly increased reticular surface irregularity in the right medialfemoral condyle could represent progression of articular surfacecollapse. Paresh Smith MD IMG XR LOWER EXTR EMITY documented in this encounter Visit Diagnoses Diagnosis Pain Generalized pain Pain Generalized pain Pain Generalized pain documented in this encounter Additional Health Concerns Assessment Noted Time PHQ-2 Depression Total Score: 0 02/22/20 21 9:24 AM EDT documented as of this encounter Care Teams Assembler 1St Shift Relationship Specialty Start Date End Date Luis M Dempsey MD [address] [place] [address] [place] [address] PCP - General 02/28/14 05/20/22 Kimberly Raman MD 20 [facility] Primary Care - 4th [place] [address] [email or web address] PCP - General Internal Medicine 05/21/22 Asher Coleman PA-C 20 [place] [address] [email or web address] PCP - Resident PCP Physician Adventure Guide 05/21/22 Frankie Marion MD [address] [place] [address] Historical LMR Provider 01/13/15 Rosas Triana MD 165 [place] [address] [email or web address] Historical LMR Provider 01/13/15 Eduardo Chen, [facility] 221 [place] [address] [email or web address] Endocrinology 05/12/17 Billy Tsang, RN 300 [place] [address] [email or web address] Primary Infusion Nurse 09/09/17 documented as of this encounter Additional Source Comments The information contained in this document represents components of the legal health record. It is not the complete legal health record.[facility]
--- OUTSIDE RECORDS SUMMARY | 2024-11-08 18:25 | XMS_ITS | Encounter Summary ---
Author Organization [facility] Address [address] [place] [address] Phone Care Team Providers Care Repairer Kiln Car Name Role Phone Luis M Dempsey MD Primary Care Provider Frankie Marion MD Unavailable Khoa Mattson MD Unavailable [phone] Rosas Triana MD Unavailable Yamel Osborne MD Unavailable [phone] Eduardo Chen [facility] Unavailable Billy Tsang RN Unavailable Kimberly Raman MD Primary Care Provider Asher Coleman PA-C Unavailable Encounter Details Date Type Department Care Team (Late st Contact Info) Description 10/25/2020 Procedure Pass [facility] Echocardiography 70 [place] [address] Social History Tobacco Use Types Packs/Day Years [...] Description 11/09/2024 8:00 AM EDT Office Visit [facility] [address] [address] Sang Matthews MD, MPH 221 [place] [address] [email or web address] 12/08/2024 11:50 AM EDT Blood Draw Laboratory Services, [facility] [address] [facility] [address] [place], [place] Malorie Mckeon MD [address] [place] [address] [email or web address] Yenny, Yenny, 12/08/2024 1:00 PM EDT Office Visit [facility] Urology [address] [address] Robinson Enrique MD [address] [address] [email or web address] 12/08/2024 2:00 PM EDT Office Visit Adult Survivorship Program, [facility] [address] [facility] 6 [place] [address] Malorie Mckeon MD [address] [place] [address] @[facility] 02/13/2025 10:10 AM EDT Blood Draw Laboratory Services, [facility] [address] [facility] [address] [place], [place] Etienne Zarate MD 450 [place] [address] [email or web address] 02/13/2025 11:00 AM EDT Office Visit Division of Hematologic Oncology, [facility] [address] 8 [place] [address] Etienne Zarate MD 450 [place] [address] [email or web address] 03/07/2025 9:00 AM EDT Office Visit Adult Survivorship Program, [facility] [address] [employer], Fl 6 [place] [address] Wilder Melvin MD [address] [place] [address] [email or web address] documented as of this encounter Visit Diagnoses Not on filedocumented in this encounter Additional Health Concerns Infection Onset Date Last Indicated Resolved Time CoV-Risk 03/27/2021 03/27/2021 04/06/2021 1:24 AM EDT Assessment Noted Time PHQ-2 Depression Total Score: 0 10/25/19 9:16 AM EST documented as of this encounter Care Teams Repairer Kiln Car Relationship Specialty Start Date End Date Luis M Dempsey MD [address] [place] [address] [place] [address] PCP - General 02/28/14 05/20/22 Kimberly Raman MD 20 [facility] Primary Care - 4th [place] [address] [email or web address] PCP - General Internal Medicine 05/21/22 Asher Coleman, PAMaryC 20 [place] [address] [email or web address] PCP - Resident PCP Physician Roofing Apprentice 05/21/22 Frankie Marion MD 450 [place] [address] Historical LMR Provider 01/13/15 Khoa Mattson MD [address] [place] [address] Historical LMR Provider 01/13/15 2 Rosas Triana MD [address] [place] [address] [email or web address] Historical LMR Provider 01/13/15 Yamel Osborne MD [address] [place] [address] [email or web address] Historical LMR Provider 01/13/15 09/07/21 Eduardo Chen [facility] [address] [place] [address] [email or web address] [facility] Endocrinology 05/12/17 Billy Tsang RN [address] [place] [address] [email or web address] Primary Infusion Nurse 09/09/17 documented as of this encounter Additional Source Comments The information contained in this document represents components of the legal health record. It is not the complete legal health record.[facility]
--- OUTSIDE RECORDS SUMMARY | 2024-11-08 18:25 | XMS_ITS | Encounter Summary ---
Author Organization [facility] Address [address] [place] [address] Phone Care Team Providers Care Junior Accountant Bookkeeper Name Role Phone Luis M Dempsey MD Primary Care Provider Frankie Marion MD Unavailable [phone] Khoa Mattson MD Unavailable [phone] Rosas Triana MD Unavailable Yamel Osborne MD Unavailable [phone] Eduardo Chen [facility] Unavailable Billy Tsang RN Unavailable [phone] Kimberly Raman MD Primary Care Provider [phone] Asher Coleman PA-C Unavailable Encounter Details Date Type Department Care Team (Late st Contact Info) Description 10/12/2017 Procedure Pass [facility] Cardiac Architecture Drafter [address] [place] [address] Social History Tobacco Use Types Packs/Day Years [...] [facility] [address] [address] Sang Matthews MD, MPH [address] [place] [address] [email or web address] 12/08/2024 11:50 AM EDT Blood Draw Laboratory Services, [facility] [address] [facility] [address] [place], [place] Malorie Mckeon MD [address] [place] [address] [email or web address] Yenny, MD Yenny 12/08/2024 1:00 PM EDT Office Visit [facility] Urology [address] [address] Robinson Enrique MD [address] [place] [address] [email or web address] 12/08/2024 2:00 PM EDT Office Visit Adult Survivorship Program, [facility] [address] [facility] [place] [address] Malorie Mckeon MD [address] [place] [address] [email or web address] 02/13/2025 10:10 AM EDT Blood Draw Laboratory Services, [facility] [address] [facility] [address] 2 [place], [place] Etienne Zarate MD 450 [place] [address] [email or web address] 02/13/2025 11:00 AM EDT Office Visit Division of Hematologic Oncology, [facility] [address] [facility] 8 [place] [address] Etienne Zarate MD 450 [place] [address] [email or web address] 03/07/2025 9:00 AM EDT Office Visit Adult Survivorship Program, [facility] [address] [facility] [facility], Fl 6 [place] [address] Wilder Melvin MD [address] [place] [address] [email or web address] documented as of this encounter Visit Diagnoses Not on filedocumented in this encounter Additional Health Concerns Infection Onset Date Last Indicated Resolved Time CoV-Risk 03/27/2021 03/27/2021 04/06/2021 1:24 AM EDT Assessment Noted Time PHQ-2 Depression Total Score: 0 09/10/19 18 3:10 PM EST documented as of this encounter Care Teams Junior Accountant Bookkeeper Relationship Specialty Start Date End Date Luis M Dempsey MD [address] [place] [address] [place] [address] PCP - General 02/28/14 05/20/22 Kimberly Raman MD 20 [facility] Primary Care - 4th [place] [address] [email or web address] PCP - General Internal Medicine 05/21/22 Asher Coleman, PAMaryC 20 [place] [address] [email or web address] PCP - Resident PCP Physician Loom Operator Apprentice 05/21/22 Frankie Marion MD 450 [place] [address] Historical LMR Provider 01/13/15 Khoa Mattson MD [address] [place] [address] Historical LMR Provider 01/13/15 2 Rosas Triana MD [address] [place] [address] [email or web address] Historical LMR Provider 01/13/15 Yamel Osborne MD [address] [place] [address] [email or web address] Historical LMR Provider 01/13/15 09/07/21 Eduardo Chen, [facility] ROSLYN [address] [place] [address] [email or web address] [facility] Endocrinology 05/12/17 Billy Tsang, PRANAV [address] [place] [address] [email or web address] Primary Infusion Nurse 09/09/17 documented as of this encounter Additional Source Comments The information contained in this document represents components of the legal health record. It is not the complete legal health record.[facility]
--- OUTSIDE RECORDS SUMMARY | 2024-11-08 18:25 | XMS_ITS | Encounter Summary ---
Author Organization [facility] Address [address] [place] [address] Phone Care Team Providers Care Restoration Silversmith Name Role Phone Luis M Dempsey MD Primary Care Provider Frankie Marion MD Unavailable [phone] Khoa Mattson MD Unavailable [phone] Rosas Triana MD Unavailable Yamel Osborne MD Unavailable [phone] Eduardo Chen [facility] Unavailable Billy Tsang RN Unavailable Kimberly Raman MD Primary Care Provider Asher Coleman PA-C Unavailable Encounter Details Date Type Department Care Team (Late st Contact Info) Description 10/25/2020 Procedure Pass [facility] 70 [place] [address] Social History Tobacco Use Types Packs/Day Years [...] Description 11/09/2024 8:00 AM EDT Office Visit [facility] [address] [address] Sang Matthews MD, MPH [address] [place] [address] [email or web address] 12/08/2024 11:50 AM EDT Blood Draw Laboratory Services, [facility] [address] [facility] [address] [place] [address] Malorie Mckeon MD [address] [place] [address] [email or web address] Yenny, MD Yenny 12/08/2024 1:00 PM EDT Office Visit [facility] Urology [address] [address] Robinson Enrique MD [address] [address] [email or web address] 12/08/2024 2:00 PM EDT Office Visit Adult Survivorship Program, [facility] [address] [facility] [place] [address] Malorie Mckeon MD [address] [place] [address] [email or web address] 02/13/2025 10:10 AM EDT Blood Draw Laboratory Services, [facility] [address] [facility] [address] [address] [place], [place] Etienne Zarate MD 450 [place] [address] [email or web address] 02/13/2025 11:00 AM EDT Office Visit Division of Hematologic Oncology, [facility] [address] [facility], [address] [place] [address] Etienne Zarate MD 450 [place] [address] [email or web address] 03/07/2025 9:00 AM EDT Office Visit Adult Survivorship Program, [facility] [address] [facility], Fl 6 [place] [address] Wilder Melvin MD [address] [place] [address] [email or web address] documented as of this encounter Visit Diagnoses Not on filedocumented in this encounter Additional Health Concerns Infection Onset Date Last Indicated Resolved Time CoV-Risk 03/27/2021 03/27/2021 04/06/2021 1:24 AM EDT Assessment Noted Time PHQ-2 Depression Total Score: 0 10/25/19 9:16 AM EST documented as of this encounter Care Teams Restoration Silversmith Relationship Specialty Start Date End Date Luis M Dempsey MD [address] [place] [address] [place] [address] PCP - General 02/28/14 05/20/22 Kimberly Raman MD 20 [facility] Primary Care - 4th [place] [address] [email or web address] PCP - General Internal Medicine 05/21/22 Asher Coleman, PA-C 20 [place] [address] [email or web address] PCP - Resident PCP Physician Activities Officer 05/21/22 Frankie Marion MD [address] [place] [address] Historical LMR Provider 01/13/15 Khoa Mattson MD [address] [place] [address] Historical LMR Provider 01/13/15 2 Rosas Triana MD [address] [place] [address] [email or web address] Historical LMR Provider 01/13/15 Yamel Osborne MD [address] [place] [address] [email or web address] Historical LMR Provider 01/13/15 09/07/21 Eduardo Chen [facility] ROSLYN [address] [place] [address] [email or web address] Endocrinology 05/12/17 Billy Tsang, PRANAV [address] [place] [address] [email or web address] Primary Infusion Nurse 09/09/17 documented as of this encounter Additional Source Comments The information contained in this document represents components of the legal health record. It is not the complete legal health record.[facility]
--- OUTSIDE RECORDS SUMMARY | 2024-11-08 18:25 | XMS_ITS | Patient Health Record ---
Author Organization Luis M Dempsey MD Address [address] [place], [place] [id number] Care Team Providers Care Seismographer Name Role Phone Luis M Dempsey Primary Care Provider Allergies Allergen (clinical drug ingredient) Drug/Non Drug Allergy documented on EMR Reaction Allergy Type Onset Date Status Compazine Unknown Drug Allergy Active Results Component Value Reference Range Notes Potassium (Not yet reviewed by provider) Interpretation: Performing Lab:[facility], [address] [place] [id number] Notes/Report: Potassium 4.5 3.3-5.1 mmol/L Reason For Referral No Information Medications Medication SIG (Take, Route, Frequency, Duration) Notes Start Date End Date Status Fenofibrate 145 MG 1 tablet Orally Once a day Active Multivitamins - Orally Acti ve Levothyroxine Sodium 75 MCG 1 tablet on an empty stomach in the morning Orally Once a day Active Lisinopril 5 MG 1 tablet Orally Once a day Active Potassium Citrate ER 10 MEQ (1080 MG) 1 tablet with meals Orally bid Not-Taking Immunizations Vaccine Route Administration Date Status Comme nts Fluarix Quadrivalent IM Intramuscular 06/05/2017 Administe red Fluarix Quadrivalent IM Intramuscular 06/01/2018 Administe red Fluarix Quadrivalent IM Intramuscular 06/16/2019 Administe red Fluarix Quadrivalent Unknown 06/09/2020 Administered Fluarix Quadrivalent Unknown 06/27/2021 Administered SARS-COV-2 Moderna Unknown 09/10/2020 Administered SARS-COV-2 Moderna Unknown 10/28/2020 Administered SARS-COV-2 Moderna Unknown 09/10/2020 Administered SARS-COV-2 Moderna Unknown 10/28/2020 Administered SARS-COV-2 Moderna Unknown 07/30/2021 Administered Fluarix Quadrivalent Unknown 06/05/2022 Administered Social History Tobacco Use: Social History Observation Description Date Details (start date - stop date) Never Smoker NA - NA Tobacco Use/Smoking Question Answer Notes Patient is a nonsmoker Additional Findings: Tobacco Non-User Cu rrent non-smoker, currently using no form of tobacco Alcohol Screen Question Answer Notes Did you have a drink contain ing alcohol in the past year? Yes How often did you have a dri nk containing alcohol in the past year? Monthly or less (1 point) How many drinks did you have on a typical day when you were drinking in the past year? 1 or 2 drinks (0 point) How often did you have 6 or more drinks on one occasion in the past year? 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) Active confirmed Problem 57086488 Osteoporosis without current pathological fracture, unspecified osteoporosis type (M81.0) Active confirmed Problem 197789949 Fluttering heart (I49.8) Active confirmed Problem 518192807 Avascular necros is (M87.00) Active confirmed Problem 84280189 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) Active confirmed Problem 91719622 Spermatocele of epididymis (N43.40) Active confirmed Problem 03952919 Controlled gout (M10.9) Active confirmed Vital Signs Blood pressure diastolic 60 mm Hg 11/08/2024 zena ght is up 6 pounds since 10-28-24 Height 66.5 in 11/08/2024 weight is up 6 pounds since 10-28-24 Blood pressure systolic 98 mm Hg 11/08/2024 heber ht is up 6 pounds since 10-28-24 Weight 181 lbs 11/08/2024 weight is up 6 pounds since 10-28-24 BMI 28.77 kg/m2 11/08/2024 weight is up 6 pounds since 10-28-24 Encounters Encounter Location Date Provider Diagnosis Luis M Dempsey MD [address] [place] [address] Drive [address] [place] [id number] 11/08/2024 Luis M Dempsey Hyperkalemia E87.5 ; Annual physical exam Z00.00 ; Foot drop, left foot M21.372 ; Hypothyroidism due to medication E03.2 ; Colon cancer screening Z12.11 and Depression screening Z13.31 Luis M Dempsey MD [address] [place] [address] [id number] 03/21/2024 Luis M Dempsey Controlled gout M10. 9 ; Hypothyroidism due to medication E03.2 and Rising PSA level R97.20 Luis M Dempsey MD [address] [place] [address] [id number] 10/14/2024 Luis M Dempsey Acute idiopathic gou t of left foot M10.072 Luis M Dempsey MD [address] [place] [address] [id number] 10/28/2024 Luis M Dempsey AVN (avascular necrosis of bone) M87.00 Assessments Encounter Date Diagnosis (ICD Code) Assessment Notes Treatment Notes Treatment Clinical Notes Section Notes 11/08/2024 Hyperkalemia (ICD-10 - E87.5) patient instructed to decrease k from 6 to 3. and will recheck, pending follow up lbs 11/08/2024 Annual physical exam (ICD-10 - Z00.00) labs reviewed and disussed with patient 03/21/2024 Controlled gout (ICD-10 - M10.9) stable, will continue to monitor 03/21/2024 Hypothyroidism due to medication (ICD-10 - E03.2) [facility] to [facility]/ THE ORDER HAS BEEN MAILED TO [facility] 10/14/2024 Acute idiopathic gout of left foot (ICD-10 - M10.072) take 40 mg for 5 days of prednisone/ cant take nsaids due to his kidneys 10/28/2024 AVN (avascular necrosis of bone) (ICD-10 - M87.00) pending diagnostic testing 11/08/2024 Foot drop, left foot (ICD-10 - M21.372) 03/21/2024 Rising PSA level (ICD-10 - R97.20) pending labs, will continue to monitor 11/08/2024 Hypothyroidism due to medication (ICD-10 - E03.2) stable, will cntonue current regiement 11/08/2024 Colon cancer screening (ICD-10 - Z12.11) guaiac negative 11/08/2024 Depression screening (ICD-10 - Z13.31) negative screen Plan Of Treatment Pending Test Test Name Order Date Electrocardiogram (EKG) 06/05/2017 POTASSIUM 10/16/2017 Potassium 11/08/2024 MR knee RT wo con 10/28/2024 MR hip RT wo con 02/02/2023 XR hip RT min 2V 01/15/2023 Next Appt Details Provider Name:Luis M Joy ier, 05/16/2025 01:30:00 PM, [address] [place] [address], [phone], Provider Name:Luis M Joy ier, 11/06/2025 07:45:00 AM, [address] [place] [address], [address], [phone], Provider Name:Luis M Joy ier, 11/13/2025 01:00:00 PM, [address] [place] [address], [address], [phone], Insurance Providers Payer Name Payer Address Payer Phone Subscriber Number Group Number Insured Name Patient Relationship to Insured Coverage Start Date Coverage End Date [facility] [address] [place] [phone] [id number] Nick Lebron Self - patient is the insured Medical (General) History Medical History History ICD Code colonoscopy 2021 repeat 5 years
--- OUTSIDE RECORDS SUMMARY | 2024-11-08 18:26 | XMS_ITS | Encounter Summary ---
Author Organization [facility] Address [address] [place] [address] Phone Care Team Providers Care Panel Fitter Name Role Phone Lusi M Dempsey MD Primary Care Provider Frankie Maroin MD Unavailable Ayan Anderson NP Unavailable [phone] Khoa Mattson MD Unavailable Rosas Triana MD Unavailable Yamel Osborne MD Unavailable [phone] Luis M Dempsey MD Unavailable Eduardo Chen [facility] ROSLYN Unavailable Billy Tsang RN Unavailable [phone] Kimberly Raman MD Primary Care Provider Asher Coleman PA-C Unavailable Encounter Details Date Type Department Care Team (Late st Contact Info) Description 12/25/2016 Procedure Pass [facility] [address] [place] [address] Social History Tobacco Use Types Packs/Day Years [...] Description 11/09/2024 8:00 AM EDT Office Visit [facility] [address] [address] Sang Matthews MD, MPH [address] [place] [address] [email or web address] 12/08/2024 11:50 AM EDT Blood Draw Laboratory Services, [facility] [address] [facility] [address] [place] [address] Malorie Mckeon MD [address] [place] [address] [email or web address] Unknown, MD Yenny 12/08/2024 1:00 PM EDT Office Visit [facility] Urology [address] [address] Robinson Enrique MD [address] [place] [address] [email or web address] 12/08/2024 2:00 PM EDT Office Visit Adult Survivorship Program, [facility] [address] [facility] [place] [address] Malorie Mckeon MD [address] [place] [address] [email or web address] 02/13/2025 10:10 AM EDT Blood Draw Laboratory Services, [facility] [address] [facility] [address] [place] [address] Etienne Zarate MD 450 [place] [address] [email or web address] 02/13/2025 11:00 AM EDT Office Visit Division of Hematologic Oncology, [facility] [address] [facility], [address] 8 [place] [address] Etienne Zarate MD 450 [place] [address] [email or web address] 03/07/2025 9:00 AM EDT Office Visit Adult Survivorship Program, [facility] [address] [facility], [address] 6 [place] [address] Wilder Melvin MD [address] [place] [address] [email or web address] documented as of this encounter Visit Diagnoses Not on filedocumented in this encounter Additional Health Concerns Infection Onset Date Last Indicated Resolved Time CoV-Risk 03/27/2021 03/27/2021 04/06/2021 1:24 AM EDT documented as of this encounter Care Teams Panel Fitter Relationship Specialty Start Date End Date Luis M Dempsey MD [address] [place] [address] [place] [address] PCP - General 02/28/14 05/20/22 Kimberly Raman MD 20 [facility] Primary Care - 4th [place] [address] [email or web address] PCP - General Internal Medicine 05/21/22 Asher Coleman Ci, PA-C 20 [place] [address] [email or web address] PCP - Resident PCP Physician Editing Computer Publisher 05/21/22 Frankie Marion MD [address] [place] [address] Historical LMR Provider 01/13/15 Ayan Anderson, OPERATION SUPERVISOR [address] [place] [address] ASB1-L2 [place] [address] [email or web address] Historical LMR Provider 01/13/15 09/06/17 Khoa Mattson MD [address] [place] [address] Historical LMR Provider 01/13/15 2 Rosas Triana MD [address] [place] [address] [email or web address] Historical LMR Provider 01/13/15 Yamel Osborne MD [address] [place] [address] [email or web address] Historical LMR Provider 01/13/15 09/07/21 uLis M Dempsey MD [address] [place] [address] [place] [address] Referring Physician Internal Medicine 11/06/15 09/06/17 Eduardo Chen, [facility] ROSLYN [address] [place] [address] [email or web address] Endocrinology 05/12/17 Billy Tsang, RN [address] [place] [address] [email or web address] Primary Infusion Nurse 09/09/17 documented as of this encounter Additional Source Comments The information contained in this document represents components of the legal health record. It is not the complete legal health record.[facility]
--- OUTSIDE RECORDS SUMMARY | 2024-11-08 18:26 | XMS_ITS | Encounter Summary ---
Author Organization [facility] Address [address] [place] [address] Phone Care Team Providers Care Park Interpretive Ranger Name Role Phone Frankie Marion MD Unavailable [phone] Rosas Triana MD Unavailable Eduardo Chen [facility] ROSLYN Unavailable Billy Tsang RN Unavailable Kimberly Raman MD Primary Care Provider Asher Coleman-C Unavailable Encounter Details Date Type Department Care Team ([facility] Contact Info) Description 07/14/2022 Procedure Pass BWF Periop 1st floor [address] [place] [address] Social History Tobacco Use Types Packs/Day Years [...] Upcoming Encounters Date Type Department Care Team ([facility] Contact Info) Description 11/09/2024 8:00 AM EDT [facility] [address] [address] Sang Matthews MD, MPH [address] [place] [address] [email or web address] 12/08/2024 11:50 AM EDT Blood Draw Laboratory Services, [facility] [address] [facility] [address] [place] [address] Malorie Mckeon MD [address] [place] [id number] @[facility] Yenny Ramon MD 12/08/2024 1:00 PM EDT Office Visit [facility] Urology [address] [place] [address] Robinson Enrique MD [address] [place] [address] [email or web address] 12/08/2024 2:00 PM EDT Office Visit Adult Survivorship Program, [facility] [address] [facility], Fl [address] [place] [address] Malorie Mckeon MD [address] [place] [address] [email or web address] 02/13/2025 10:10 AM EDT Blood Draw Laboratory Services, [facility] [address] [facility] [address] [place], [place] Etienne Zarate MD [address] [place] [address] [email or web address] 02/13/2025 11:00 AM EDT Office Visit Division of Hematologic Oncology, [facility] [address] [facility], Fl 8 [place] [address] Etienne Zarate MD 450 [place] [address] Brook@[email or web address] 03/07/2025 9:00 AM EDT Office Visit Adult Survivorship Program, [facility] 450 [facility] [place] 6 [place] [address] Wilder Melvin MD [address] [place] [address] [email or web address] documented as of this encounter Visit Diagnoses Not on filedocumented in this encounter Additional Health Concerns Assessment Noted Time PHQ-2 Depression Total Score: 0 02/22/20 21 9:24 AM EDT documented as of this encounter Care Teams Park Interpretive Ranger Relationship Specialty Start Date End Date Kimberly Raman MD 20 [facility] Primary Care - 4th [place] [address] [email or web address] PCP - General Internal Medicine 05/21/22 Asher Coleman PA-C 20 [place] [address] [email or web address] PCP - Resident PCP Physician Bellstand Attendant 05/21/22 Frankie Marion MD 450 [place] [address] Historical LMR Provider 01/13/15 Rosas Triana MD [address] [place] [address] Historical LMR Provider 01/13/15 Eduardo Chen, [facility] ROSLYN [address] [place] [address] [email or web address] Endocrinology 05/12/17 Billy Tsang, PRANAV [address] [place] [address] [email or web address] Primary Infusion Nurse 09/09/17 documented as of this encounter Additional Source Comments The information contained in this document represents components of the legal health record. It is not the complete legal health record.[facility]
--- OUTSIDE RECORDS SUMMARY | 2024-11-08 18:26 | XMS_ITS | Encounter Summary ---
Author Organization [facility] Address [address] [place] [address] Phone Care Team Providers Care Cold Meat Chef Name Role Phone Luis M Dempsey MD Primary Care Provider Frankie Marion MD Unavailable [phone] Ayan Anderson NP Unavailable Khoa Mattson MD Unavailable [phone] Rosas Triana MD Unavailable Yamel Osborne MD Unavailable [phone] Luis M Dempsey MD Unavailable Eduardo Chen [facility] ROSLYN Unavailable Billy Tsang RN Unavailable Kimberly Raman MD Primary Care Provider Asher Coleman PA-C Unavailable Encounter Details Date Type Department Care Team (Late st Contact Info) Description 10/02/2016 Transcribe Orders [address] [address] Juju Bernal MD Dry eyes (Primary Dx) Social History Tobacco [...] Description 11/09/2024 8:00 AM EDT Office Visit [facility] [address] [address] Sang Matthews MD, MPH [address] [place] [address] [email or web address] 12/08/2024 11:50 AM EDT Blood Draw Laboratory Services, [facility] 450 [employer] [facility] 2 [place] [address] Malorie Mckeon MD [address] [place] [address] [email or web address] Unknown, MD Yenny 12/08/2024 1:00 PM EDT Office Visit [facility] Urology [address] [facility] [address] Robinson Enrique MD [address] [place], [place] [address] [address] [email or web address] 12/08/2024 2:00 PM EDT Office Visit Adult Survivorship Program, [facility] 450 [facility] [place] 6 [place] [address] Malorie Mckeon MD [address] [place] [address] [email or web address] 02/13/2025 10:10 AM EDT Blood Draw Laboratory Services, [facility] [address] [employer] [facility] [facility] [address] [place], [place] Etienne Zarate MD 450 [place] [address] [email or web address] 02/13/2025 11:00 AM EDT Office Visit Division of Hematologic Oncology, [facility] [address] [employer] [facility], Fl 8 [place] [address] Etienne Zarate MD [address] [place] [address] [email or web address] 03/07/2025 9:00 AM EDT Office Visit Adult Survivorship Program, [facility] [address] [employer] [facility] Fl [address] [place] [address] Wilder Melvin MD [address] [place] [address] [email or web address] documented as of this encounter Results * Autologous serum for tears lab blood draw ([facility] (10/02/2016 11:22 AM EST) Tubes Drawn 6 [facility] 10/02/2016 11:2 2 AM EST 10/02/2016 11:23 AM EST Juju Bernal MD LAB BLO OD ORDERABLES [facility] [place] [address], [facility] [place] documented in this encounter Visit Diagnoses Diagnosis Dry eyes- Primary Unspecified tear film insufficiency documented in this encounter Additional Health Concerns Infection Onset Date Last Indicated Resolved Time CoV-Risk 03/27/2021 03/27/2021 04/06/2021 1:24 AM EDT documented as of this encounter Care Teams Cold Meat Chef Relationship Specialty Start Date End Date Luis M Dempsey MD [address] [place] [address] [place] [address] PCP - General 02/28/14 05/20/22 Kimberly Raman MD 20 [facility] Primary Care - 4th [place] [address] [email or web address] PCP - General Internal Medicine 05/21/22 Asher Coleman PAMaryC 20 [place] [address] [email or web address] PCP - Resident PCP Physician Oracle Security Consultant 05/21/22 Frankie Marion MD [address] [place] [address] Historical LMR Provider 01/13/15 Ayan Anderson NP [address] [place] [address] [address] [email or web address] Historical LMR Provider 01/13/15 09/06/17 Khoa Mattson MD [address] [place] [address] Historical LMR Provider 01/13/15 2 Rosas Triana MD [address] [place] [address] [email or web address] Historical LMR Provider 01/13/15 Yamel Osborne MD [address] [place] [address] [email or web address] Historical LMR Provider 01/13/15 09/07/21 Luis M Dempsey MD [address] [place] [address] Dr GEE [address] [place] [address] Referring Physician Internal Medicine 11/06/15 09/06/17 Eduardo Chen, [facility] ROSLYN [address] [place] [address] [email or web address] Endocrinology 05/12/17 Billy Tsang, RN [address] [place] [address] [email or web address] Primary Infusion Nurse 09/09/17 documented as of this encounter Additional Source Comments The information contained in this document represents components of the legal health record. It is not the complete legal health record.[facility]
--- OUTSIDE RECORDS SUMMARY | 2024-11-08 18:26 | XMS_ITS | Encounter Summary ---
Author Organization [facility] Address [address] [place] [address] Phone Care Team Providers Care Vba Programmer Name Role Phone Luis M Dempsey MD Primary Care Provider Frankie Marion MD Unavailable Ayan Anderson NP Unavailable Khoa Mattson MD Unavailable Rosas Triana MD Unavailable Yamel Osborne MD Unavailable [phone] uLis M Dempsey MD Unavailable [phone] Eduardo Chen [facility] ROSLYN Unavailable Billy Tsang RN Unavailable Kimberly Raman MD Primary Care Provider Asher Coleman PA-C Unavailable Encounter Details Date Type Department Care Team (Late st Contact Info) Description 09/23/2016 Procedure Pass [facility] [address] [place] [address] Social History Tobacco Use Types Packs/Day Years [...] Office Visit [facility] [address] [address] Sang Matthews MD, MPH 221 [place] [address] [email or web address] 12/08/2024 11:50 AM EDT Blood Draw Laboratory Services, [facility] [address] [address] [place] [address] Malorie Mckeon MD [address] [place] [address] [email or web address], MD Yenny 12/08/2024 1:00 PM EDT Office Visit [facility] Urology [address] [address] Robinson Enrique MD [address] [place] [id number] [email or web address] 12/08/2024 2:00 PM EDT Office Visit Adult Survivorship Program, [facility] [address] [facility] [place] [address] Malorie Mckeon MD [address] [place] [address] [email or web address] 02/13/2025 10:10 AM EDT Blood Draw Laboratory Services, [facility] [address] [facility] [address] [place] [address] Etienne Zarate MD 450 [place] [address] [email or web address] 02/13/2025 11:00 AM EDT Office Visit Division of Hematologic Oncology, [facility] 450 [facility] 8 [place] [address] Etienne Zarate MD 450 [place] [address] [email or web address] 03/07/2025 9:00 AM EDT Office Visit Adult Survivorship Program, [facility] 450 [facility] [address] 6 [place] [address] Wilder Melvin MD 221 [place] [address] [email or web address] documented as of this encounter Visit Diagnoses Not on filedocumented in this encounter Additional Health Concerns Infection Onset Date Last Indicated Resolved Time CoV-Risk 03/27/2021 03/27/2021 04/06/2021 1:24 AM EDT documented as of this encounter Care Teams Vba Programmer Relationship Specialty Start Date End Date Luis M Dempsey MD [address] [place] [address] [place] [address] PCP - General 02/28/14 05/20/22 Kimberly Raman MD 20 [facility] Primary Care - 4th [place] [address] [email or web address] PCP - General Internal Medicine 05/21/22 Asher Coleman Ci, PA-C 20 [place] [address] [email or web address] PCP - Resident PCP Physician Pharmaceutical Assistant 05/21/22 Frankie Marion MD [address] [place] [address] Historical LMR Provider 01/13/15 Ayan Anderson, PRODUCTION SUPPORT CONSULTANT [address] [place] [address] [email or web address] [place] [address] [email or web address] Historical LMR Provider 01/13/15 09/06/17 Khoa Mattson MD [address] [place] [address] Historical LMR Provider 01/13/15 2 Rosas Triana MD [address] [place] [address] [email or web address] Historical LMR Provider 01/13/15 Yamel Osborne MD [address] [place] [address] [email or web address] Historical LMR Provider 01/13/15 09/07/21 Luis M Dempsey MD [address] [place] [address] [place] [address] Referring Physician Internal Medicine 11/06/15 09/06/17 Eduardo Chen, [facility] ROSLYN [address] [place] [address] [email or web address] Endocrinology 05/12/17 Billy Tsang, RN [address] [place] [address] [email or web address] Primary Infusion Nurse 09/09/17 documented as of this encounter Additional Source Comments The information contained in this document represents components of the legal health record. It is not the complete legal health record.[facility]
--- OUTSIDE RECORDS SUMMARY | 2024-11-08 18:26 | XMS_ITS | Clinical Summary ---
Author Organization [facility] Address [address] [place] [address] Care Team Providers Care French Cord Binder Name Role Phone Unavailable Primary Care Provider Unavailabl e Immunizations Name Administration Dates Next Due COVID-19, mRNA (Moderna Pre Fall 2022) Monovalent, 100 mcg/0.5 ml or 50 mcg/0.25 ml dose 07/30/2021,10/08/2020,09/10/2020 DTaP - 08/18/2011,06/16/2011 Hep A (adult) 12/30/2022 Hib - 06/21/2012,08/18/2011,06/16/2011 Influenza (SEASONAL) - 11/25/2010 Influenza,injectable,MDCK, P rsrv Fr,Quad 06/19/2023,06/05/2022 Influenza,injectable,quad,Prsrv Fr 07/03/2016,,06/26/2014 MMR 05/09/2019 Meningococcal ACWY (Menveo) 12/30/2022 Meningococcal MPSV4 (Menomune) 06/16/2011 PCV-13 08/18/2011,06/16/2011 PPV23 (Pneumovax) 05/09/2019 Tdap 05/09/2019 Zoster (Shingrix) 09/07/2019,05/09/2019 influenza,seasonal,trivalent ,PF (Fluzone, Fluarix, Flulaval) 06/27/2021,06/09/2020,06/16/2019,06/01,06/05/2017,06/20/2013,06/21/2012 Social History Tobacco Use Types Packs/Day Years Used Date Smoking Tobacco: Never Assessed Intimate Partner Violence Answer Date R ecorded Fear of Current or Ex-Partner Not on file Emotionally Abused Not on file 04/21/2023 Physically Abused Not on file 04/21/2023 Sexually Abused Not on file 04/21/2023 Feel Safe at Home Not on file 04/21/2023 Sex and Gender Information Value Date Recorded Sex Assigned at Not on file Legal Sex Male 9:31 PM EDT Gender Identity Not on file Sexual Orientation Not on file Plan of Treatment Health Maintenance Due Date Last Done Comments Hepatitis C Screening 1965 Hep B (1 of 3 - 19+ 3-dose series) 1986 Colon Cancer Screening 02/11/2012 COVID-19 Vaccine ( season) 2024 07/30/2021, 10/28/2020, 10/08/2020, Additional history exists Influenza (#1) 2024 06/19/2023, 01/2022, 06/27/2021, Additional history exists Pneumococcal 50+ years (3 of 3 - PCV20 or PCV21) 05/09/2024 05/09/2019, 08/18/2011, 06/16/2011 DTaP/Tdap/Td (4 - Td or Tdap) 05/09/2029 05/09/2019, 08/18/2011, 06/16/2011 EKG Discontinued 08/20/2005 Hib Aged Out 06/21/2012, 07/31, 06/16/2011 No longer eligible based on patient's age to complete this topic Zoster (Shingrix) Completed 09/07/2019, 05/09/2019 LDL Cholesterol Discontinued 07/23/2020, 05/31, 06/14/2019 Hep A Aged Out 12/30/2022 No longer eligi ble based on patient's age to complete this topic Meningococcal ACWY Aged Out 12/30/2022, 06/16/2011 No longer eligible based on patient's age to complete this topic HPV Vaccine Aged Out No longer eligi ble based on patient's age to complete this topic Procedures * Due to [place] state law, this organization might not be sharing negative HIV tests. Procedure Name Priority Date/Time Associated Diagnosis Comments EKG-TO BE READ & BILLED BY ADULT OR PEDIATRIC CARDIOLOGY 08/20/2005 11:18 AM EST Health Examination of Defined Subpopulation from Last 3 Months or Most Recently Relevant to Health Maintenance
--- OUTSIDE RECORDS SUMMARY | 2024-11-08 18:26 | XMS_ITS | Encounter Summary ---
Author Organization [facility] Address [address] [place] [address] Phone Care Team Providers Care Drain Layer Name Role Phone Luis M Dempsey MD Primary Care Provider Frankie Marion MD Unavailable Khoa Mattson MD Unavailable Rosas Triana MD Unavailable Yamel Osborne MD Unavailable [phone] Eduardo Chen [facility] Unavailable Billy Tsang RN Unavailable Kimberly Raman MD Primary Care Provider Asher Coleman PA-C Unavailable Encounter Details Date Type Department Care Team (Late st Contact Info) Description 05/20/2018 Procedure Pass [place] [facility], [facility], MRI [address] [facility], [address] [place] [address] Social History Tobacco Use Types Packs/Day Years [...] Description 11/09/2024 8:00 AM EDT Office Visit [facility] [address] [address] Sang Matthews MD, MPH 221 [place] [address] [email or web address] 12/08/2024 11:50 AM EDT Blood Draw Laboratory Services, [facility] [address] [facility] [address] [place], [place] Malorie Mckeon MD [address] [place] [address] [email or web address], MD Yenny 12/08/2024 1:00 PM EDT Office Visit [facility] Urology [address] [address] Robinson Enrique MD [address] [address] [email or web address] 12/08/2024 2:00 PM EDT Office Visit Adult Survivorship Program, [facility] [address] [facility] [address] [place] [address] Malorie Mckeon MD [address] [place] [address] [email or web address] 02/13/2025 10:10 AM EDT Blood Draw Laboratory Services, [facility] [address] [facility] [address] [place], [place] Etienne Zarate MD 450 [place] [address] [email or web address] 02/13/2025 11:00 AM EDT Office Visit Division of Hematologic Oncology, [facility] [address] [facility] [address] [place] [address] Etienne Zarate MD [address] [place] [address] [email or web address] 03/07/2025 9:00 AM EDT Office Visit Adult Survivorship Program, [facility] [address] [facility], Fl 6 [place] [address] Wilder Melvin MD [address] [place] [address] [email or web address] documented as of this encounter Visit Diagnoses Not on filedocumented in this encounter Additional Health Concerns Infection Onset Date Last Indicated Resolved Time CoV-Risk 03/27/2021 03/27/2021 04/06/2021 1:24 AM EDT Assessment Noted Time PHQ-2 Depression Total Score: 0 04/22/20 18 3:04 PM EDT documented as of this encounter Care Teams Drain Layer Relationship Specialty Start Date End Date Luis M Dempsey MD [address] [place] [address] [place] [address] PCP - General 02/28/14 05/20/22 Kimberly Raman MD 20 [facility] Primary Care - 4th [place] [address] [email or web address] PCP - General Internal Medicine 05/21/22 Asher Coleman Ci, PA-C 20 [place] [address] [email or web address] PCP - Resident PCP Physician Automobile Radio Repairer 05/21/22 Frankie Marion MD [address] [place] [address] Historical LMR Provider 01/13/15 Khoa Mattson MD [address] [place] [address] Historical LMR Provider 01/13/15 Rosas Irvin MD [address] [place] [address] [email or web address] Historical LMR Provider 01/13/15 Yamel Osborne MD [address] [place] [address] [email or web address] Historical LMR Provider 01/13/15 09/07/21 Eduardo Chen, [facility] ROSLYN [address] [place] [address] [email or web address] Endocrinology 05/12/17 Billy Tsang, RN [address] [place] [address] [email or web address] Primary Infusion Nurse 09/09/17 documented as of this encounter Additional Source Comments The information contained in this document represents components of the legal health record. It is not the complete legal health record.[facility]
--- OUTSIDE RECORDS SUMMARY | 2024-11-08 18:26 | XMS_ITS | Data Portability ---
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 Plan of Treatment Reminders Order Date Submit Date Provider Last Modified By Organization Details Last Modified Time Details Appointments None record ed. Lab None record ed. Referral None record ed. Procedures None record ed. Surgeries None record ed. Imaging XR, foot, 3 or more view 022 03/26/20 22 [email or web address] In-House Test, For Internal Use Only, Do Not Delete/merge, [id number] 12:07:43 XR, foot, 3 or more view 019 09/15/19 19 [email or web address] In-House Test, For Internal Use Only, Do Not Delete/merge, [id number] 13:30:11 XR, foot, 3 or more view 018 08/12/20 18 In-House Test, For Internal Use Only, Do Not Delete/merge, [id number] 16:26:01 Medication Orders None record ed. Patient TargetsNo targets recorded. Patient Instructions Encounter Date Encounter Id Patient Instructions Last Modified By Organization Details Last Modified Time 08/12/2018 [id number] starting a weigh t loss plan: care instructions Not available 08/12/2018 16:26:01 metatarsalgia: care instructions Not available 08/12/2018 16:26:01 Discussed treatment options including topical salicylic acid, Transderm solution, laser therapy, duct tape method, surgical excision and observation (potential spontaneous resolution). At this time patient has decided upon continuing with the laser. The findings of metatarsalgia were reviewed at length. The soreness in the ball of the foot can be from the bone, capsule, or the plantar plate region. This can be treated using anti-inflammatory medicine or injections, ice, changing shoes, padding-reducing the offending activity, inserts/orthotics and ultimately trying to reduce load through the forefoot by addressing proximal tightness and immobility. Surgery is needed at times for this condition. At this time patient has decided on the following guidance set up on a personalized web page: I would check out the instructions for treating metatarsalgia for guidance. The worse it is, the more you do. If it's not that bad, then all I would do is the 2 videos directly above this comment and the chi looseners often. Contrast baths with cold water, not ice water, and warm water, not hot water, as needed for discomfort. Swelling is never good, so that's your bodies way of saying STOP. By the day after Yola, if all is good, get back to life as before this. If not, then you may have a stress fracture and/or be consistent with the instructions if helpful. Not available 08/12/2018 15:46:34 09/15/2018 [id number] starting a weigh t loss plan: care instructions Not available 09/15/2018 13:26:54 metatarsalgia: care instructions Not available 09/15/2018 13:26:54 Discussed treatment options including topical salicylic acid, Transderm solution, laser therapy, duct tape method, surgical excision and observation (potential spontaneous resolution). At this time patient has decided upon continuing with the laser. The findings of the X ray were reviewed and without changes, no treatment needed. Bone density testing is being set up and discussed Vit. D supplementation. Not available 09/15/2018 13:26:12 10/14/2018 [id number] starting a weigh t loss plan: care instructions Not available 10/14/2018 13:32:20 Discussed treatment options including topical salicylic acid, Transderm solution, laser therapy, duct tape method, surgical excision and observation (potential spontaneous resolution). At this time patient has decided upon continuing with the laser. Not available 10/14/2018 13:30:31 11/25/2018 [id number] starting a weigh t loss plan: care instructions Not available 11/25/2018 11:18:03 Discussed treatment options including topical salicylic acid, Transderm solution, laser therapy, duct tape method, surgical excision and observation (potential spontaneous resolution). At this time patient has decided upon continuing with the laser. Not available 11/25/2018 11:16:29 03/26/2022 [id number] The findings of the exam were explained thoroughly to the patient. Pain is typical where the symptoms are being felt, but the underlying cause is not necessarily specific to the foot or area of pain. Treatment goals will be aimed at addressing both the foot pain and the underlying cause of the foot pain. Local Treatments: Anti-inflammatory treatment (injection vs. medication and ice).?? Myofascial release to help allow improved muscle elasticity and function as well as mobility. Shoe changes: improved support vs. minimalist. Orthotic devices could be an option. Compression, ice vs. contrast, foam rolling, ankle looseners and tissue scraping with a gua sha should be very helpful ultimately. The keratoma's were debrided today which should also provide relief. The role of how posture relates to foot health was stressed at todays visit. The better the posture, the less work the feet will be forced to do, and the more mobile the lower extremity joints will be. As posture fails, the muscles that create movement engage thus limiting joint mobility and stressing parts of the foot (body) that aren't intended to be stressed. That which helps posture is recommended: Diaphragmatic breathing, relaxation techniques, working with health and fitness specialists and being unshod if comfortable. Patient Education Genius was used during today's discussion creating content for the patient and reviewing the underlying condition, the cause(s) of the condition(s), specific instruction on home management, helpful exercises and specific areas of focus. The established patient visit today had a decision making nature that was of {{straight forward complexity or required a total time of 10-19 minutes including time spent directly with the patient explaining their conditions, causes and treatment options as well as time reviewing external notes, ordering and reviewing any tests if applicable low level complexity or required a total time of 20-29 minutes including time spent directly with the patient explaining their conditions, causes and treatment options as well as time reviewing external notes, ordering and reviewing any tests if applicable* modera te level complexity or required a total time of 30-39 minutes including time spent directly with the patient explaining their conditions, causes and treatment options as well as time reviewing external notes, ordering and reviewing any tests if applicable high level complexity or required a total time of 40-54 minutes including time spent directly with the patient explaining their conditions, causes and treatment options as well as time reviewing external notes, ordering and reviewing any tests if applicable}}. An opportunity was provided for the patient to ask questions and all of the patient's questions were answered to their satisfaction. Not available 03/26/2022 12:04:38 Reason for Referral None Reported. Results Created Date Observation Date Name Description Value Unit Range Abnormal Flag Note LastModifiedBy Organization Detail LastModifiedTime 03/26/20 22 XR, foot, 3 or more view No observ ation record ed. In-House Test For Internal Use Only, Do Not Delete/merge, [id number] 03/26/2022 11:58:57 Result Notes None recorded. 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 Procedures Surgical History Date Name Laterality Status Provider Name and Address Organization Details Recorded Time 2 Injection Tendon (single) completed Adam Vazquez DPM [address], [place], [address], [facility] 03/26/2022 11:57:24 9 [facility] completed Adam Vazquez DPM [address] [facility] [address], [place], [address], [facility] 11/25/2018 11:16:17 9 [facility] completed Adam Vazquez DPM [address] [facility] [address], [place], [address], [facility] 10/14/2018 13:31:25 9 [facility] completed Adam Vazquez DPM [address] [address], [place], [address], [facility] 09/15/2018 13:24:20 8 [facility] completed Adam Vazquez DPM [address] [address], [place], [address], [facility] 08/12/2018 16:24:34 7 [facility] completed Adam Vazquez DPM [address] [address], [place], [address], [facility] 07/08/2017 15:38:48 7 [facility] completed Adam Vazquez DPM [address] [facility] [address], [place], [address], [facility] 05/26/2017 12:28:09 7 [facility] [place] completed Adam Vazquez DPM [address] [facility] [address], [place], [address], [facility] 04/20/2017 10:13:32 7 [facility] [place] completed Adam Vazquez DPM [address] [address], [place], [address], [facility] 02/19/2017 11:00:13 7 [facility] completed Adam Vazquez DPM [address] [facility] [address], [place], [address], [facility] 01/22/2017 11:51:51 7 [facility] completed Adam Vazquez DPM [address] [address], [place], [address], [facility] 12/24/2016 10:14:58 7 [facility] completed Adam Vazquez DPM [address] [address], [place], [address], [facility] 11/19/2016 14:53:49 7 [facility] completed Adam Vazquez DPM [address] [address], [place], [address], [facility] 10/16/2016 09:51:37 7 [facility] [place] completed Adam Vazquez DPM [address] [address], [place], [address], [facility] 09/18/2016 09:25:35 6 [facility] [place] completed Adam Vazquez DPM [address] [facility] [address], [place], [address], [facility] 08/18/2016 09:47:54 6 [facility] [place] completed Adam Vazquez DPM [address] [facility] [address], [place], [address], [facility] 07/02/2016 10:02:39 Imaging Results Imaging Date Name Status LastModified by Organiz ation Details LastModified Time 03/26/2022 XR, foot, 3 or more view completed In-House Test For Internal Use Only, Do Not Delete/merge, [id number] 03/26/2022 11:58:57 Procedure Notes None recorded. Medical Equipment None Reported. Allergies No known drug allergies Medications Name Sig Start Date Stop Date Status Note LastModified by Organization Details LastModified Time amoxicillin 500 mg capsule 07/02 completed Not Available Not Available Not Available azithromycin 250 mg tablet 08/12 completed Not Available Not Available Not Available ofloxacin 0.3 % eye drops 03/23 completed Not Available Not Available Not Available valacyclovir 1 gram tablet 05/26 completed Not Available Not Available Not Available hydrocodone 5 mg-acetamino phen 325 mg tablet 10/16 completed Not Available Not Available Not Available betamethason e, augmented 0.05 % topical cream 03/23 completed Not Available Not Available Not Available clopidogrel 75 mg tablet 08/12 completed Not Available Not Available Not Available valacyclovir 500 mg tablet 05/26 completed Not Available Not Available Not Available levothyroxin e 75 mcg tablet TAKE 1 TABLET BY MOUTH EVERY DAY active Not Available Not Available No t Available doxycycline monohydrate 50 mg tablet 07/02 completed Not Available Not Available Not Available tamsulosin 0.4 mg capsule 05/26 completed Not Available Not Available Not Available potassium citrate ER 10 mEq (1,080 mg) tablet,exten ded release active Not Available Not Available Not Available levothyroxin e 50 mcg tablet 03/23 completed Not Available Not Available Not Available oseltamivir 75 mg capsule 08/12 completed Not Available Not Available Not Available gabapentin 300 mg capsule 05/26 completed Not Available Not Available Not Available lisinopril 5 mg tablet TAKE 1 TABLET BY MOUTH EVERY DAY active Not Available Not Available No t Available ergocalcifer ol (vitamin D2) 1,250 mcg (50,000 unit) capsule active Not Available Not Available Not Available ibuprofen 600 mg tablet 10/16 completed Not Available Not Available Not Available levofloxacin 500 mg tablet TAKE 1 TABLET BY MOUTH EVERY DAY 03/23 completed Not Available Not Available Not Available levofloxacin 750 mg tablet 10/16 completed Not Available Not Available Not Available ondansetron 4 mg disintegrati ng tablet 10/16 completed Not Available Not Available Not Available Restasis 0.05 % eye drops in a dropperette 03/23 completed Not Available Not Available Not Available chlorhexidin e gluconate 0.12 % mouthwash 10/16 completed Not Available Not Available Not Available ProAir HFA 90 mcg/actuatio n aerosol inhaler 05/26 completed Not Available Not Available Not Available fenofibrate nanocrystall ized 145 mg tablet 03/23 completed Not Available Not Available Not Available Lotemax 0.5 % eye ointment INSTILL A RICE GRAIN SIZE TO EACH EYELID MARGIN NIGHTLY AT BEDTIME 03/23 completed Not Available Not Available Not Available Vitals Date Recorded Body height Body mass index (BMI) Body weight Provider Name and Address Organization Details Last Updated DateTime 08/12/2018 170.18 cm 27.3 kg/m2 20823.07 g Marian Smith [facility] 08/12/2018 14:53:10 Date Recorded Body height Body mass index (BMI) Body weight Provider Name and Address Organization Details Last Updated DateTime 09/15/2018 170.18 cm 27.3 kg/m2 22367.07 g Claudia Owen [facility] 09/15/2018 12:59:27 Date Recorded Body height Body mass index (BMI) Body weight Pain severity - 0-10 verbal numeric rating [Score] - Reported Provider Name and Address Organization Details Last Updated DateTime 10/14/2018 170.18 cm 27.3 kg/m2 78107.07 g 0 Marian Smith [facility] 10/14/2018 13:06:02 Date Recorded Body height Body mass index (BMI) Body weight Provider Name and Address Organization Details Last Updated DateTime 11/25/2018 170.18 cm 27.3 kg/m2 49812.07 g Jeanette Milian [facility] 11/25/2018 10:52:50 Date Recorded Body height Body mass index (BMI) Body weight Provider Name and Address Organization Details Last Updated DateTime 03/26/2022 170.18 cm 27.3 kg/m2 46652.07 g Edda Minaya [facility] 03/26/2022 11:30:30 Social History Question Answer Notes LastModified by Organizat ion Details LastModified Time Tobacco Smoking Status Never Smoker Marian caceres [facility] 07/02/2016 09:19:40 Do You Have An Advance Directive? No Information not available 03/26/2022 What Is Your Level Of Alcohol Consumption? Occasional [email or web address] Information not available 07/02/2016 Are You Blind Or Do You Have Difficulty Seeing? No Information not available 03/26/2022 Are You Deaf Or Do You Have Serious Difficulty Hearing? No Information not available 03/26/2022 Which Illicit Or Recreational Drugs Have You Used? None [email or web address] Information not available 07/02/2016 Do You Or Have You Ever Used E-cigarettes Or Vape? 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 5?7? Information not available 03/26/2022 What Is Your Weight? 174 Information not available 03/26/2022 Do You Have Type 2 Diabetes? No Information not available 03/26/2022 Do You Have Type 1 Diabetes No Information not available 03/26/2022 Are You Being Seen Today For A Work Related Injury? No Information not available 03/26/2022 What Is Your Shoe Size & Width? 9 [email or web address] Information not available 07/02/2016 Marital Status Unknown Informatio n not available 03/26/2022 Do You Have A Medical Power Of Student Dean? No Information not available 03/26/2022 What Was The Date Of Your Most Recent Tobacco Screening? 11/25/2018 Information not available 03/26/2022 What Is Your Relationship Status? Information not available 03/26/2022 Do You Or Have You Ever Used Smokeless Tobacco? Never Used Smokeless Tobacco Information not available 03/26/2022 How Much Tobacco Do You Smoke? No [email or web address] Information not available 07/02/2016 What Types Of Sporting Activities Do You Participate In? Walking/function al Fitness Training Information not available 03/26/2022 Do You Use Any Illicit Or Recreational Drugs? No Information not available 03/26/2022 Has Tobacco Cessation Counseling Been Provided? No Information not available 03/26/2022 How Many Years Have You Smoked Tobacco? 0 [email or web address] Information not available 12/24/2016 Do You Or Have You Ever Used Any Other Forms Of Tobacco Or Nicotine? No Information not available 03/26/2022 Sex: Unknown Functional Status Question Answer Note LastModified by Organizat ion Details LastModified Time Do you have difficulty walking or climbing stairs? No Information not available 03/26/2022 Are you able to walk? YESWOREST Information not available 03/26/2022 What is your exercise level? Moderate Information not available 03/26/2022 Mental Status None recorded. Family History Relationship Description Onset Age of this Age Resolved Age Notes LastModified by Organization Details LastModified Time Father No current problems or disability [email or web address] Not available 12/24 09:51:01 Mother No current problems or disability [email or web address] Not available 12/24 09:51:01 Medical History Condition Response High Blood Pressure N Lower Limb amputations N MRSA N Emphysema N Respiratory Disease N Circulatory Problems N Congenital Heart Lesions N Thyroid Problems Y Psychiatric Care N Pacemaker N Anemia N Multiple Sclerosis N Bleeding Tendency N Deep Vein Thrombosis N Varicose Veins N Diabetes N Rheumatic Fever N Arthritis N Seizures/Epilepsy N Blood Disease N Heart Murmur N Tuberculosis N AIDS/HIV N Cancer Y Chemical Dependency N Stroke N Low Blood Pressure N Asthma N Epilepsy N Peripheral Vascular Disease N Shortness of Breath N High Cholesterol N Mitral Valve Prolapse N Liver Disease N Heart Disease N Rheumatoid Arthritis N Foot Deformity N Fibromyalgia N Hepatitis A, B, or C N Ulcer N Kidney Disease N Past Encounters Encounter ID Performer Location Encounter Start Date Encounter Closed Date Diagnosis/Indication Diagnosis SNOMED-CT Code Diagnosis ICD10 Code Diagnosis Note [id number] Adam [place]quez [place] [address] 07/02/2016 09:09:23 07/02/2016 10:08:07 Verruca plantaris 73954991 B07.0 Foot pain 94036217 M79.6 73 [id number] Adam Vazquez DPM [facility] [place] [address] [address] 08/18/2016 09:27:42 08/18/2016 09:48:34 Foot pain 63209542 M79.673 Verruca plantaris 561173 08 B07.0 Neuropathy 023703275 G62 .9 [id number] Adam Vazquez DPM [facility] [place] [address] [address] 09/18/2016 08:37:14 09/18/2016 09:29:49 Verruca plantaris 24850586 B07.0 Pain in right foot 46933 89153 97811 M79.671 [id number] Adam Vazquez DPM [facility] [place] [address] [address] 10/16/2016 09:01:06 10/16/2016 09:56:01 Verruca plantaris 48618116 B07.0 Pain in right foot 23181 79155 62466 M79.671 [id number] Adam Vazquez DPM [facility] [place] [address] [address] 11/19/2016 09:33:12 11/19/2016 10:58:59 Verruca plantaris 48664861 B07.0 Pain in right foot 87174 19804 36054 M79.671 [id number] Adam Vazquez DPM [facility] [place] [address] [address] 12/24/2016 09:44:59 12/24/2016 10:19:07 Verruca plantaris 52254308 B07.0 Pain in right foot 97830 15235 53675 M79.671 [id number] Adam Vazquez DPM [facility] [place] [address] [address] 01/22/2017 10:52:54 01/22/2017 11:55:03 Verruca plantaris 09468523 B07.0 Pain in right foot 56460 06052 80021 M79.671 [id number] Adam Vazquez DPM [facility] [place] [address] [address] 02/19/2017 10:04:48 02/19/2017 11:03:37 Verruca plantaris 08204125 B07.0 Pain in right foot 53522 25242 33330 M79.671 [id number] Adam Vazquez DPM [facility] [place] [address] [address] 04/20/2017 09:16:14 04/20/2017 10:16:58 Verruca plantaris 44829243 B07.0 Pain in right foot 50357 41824 28091 M79.671 [id number] Adam Vazquez DPM [facility] [place] [address] [address] 05/26/2017 11:57:29 05/26/2017 12:54:32 Verruca plantaris 47638260 B07.0 Pain in right foot 74307 15437 46091 M79.671 [id number] Adam Vazquez DPM [facility] [place] [address] [address] 07/08/2017 09:49:08 07/08/2017 10:51:27 Verruca plantaris 75998436 B07.0 Pain in right foot 46591 77905 77340 M79.671 [id number] Adam Vazquez DPM [facility] [place] [address] [address] 08/12/2018 14:35:48 08/12/2018 16:26:06 Verruca plantaris 50283179 B07.0 Pain in right foot 27074 60175 87744 M79.671 Metatarsalgia 86596382 M 77.42 [id number] Adam Vazquez DPM [facility] [place] [address] [address] 09/15/2018 12:57:13 09/15/2018 13:30:09 Verruca plantaris 34118302 B07.0 Pain in right foot 82672 27407 51195 M79.671 Metatarsalgia 68848501 M 77.42 [id number] Adam Vazquez DPM [facility] [address] [address] 10/14/2018 12:54:03 10/14/2018 13:34:10 Verruca plantaris 57241825 B07.0 Pain in right foot 72004 16989 85734 M79.671 [id number] Adam Vazquez DPM [facility] [place] [address] [address] 11/25/2018 10:36:00 11/25/2018 11:26:18 Verruca plantaris 68546333 B07.0 Pain in right foot 88233 44561 74372 M79.671 [id number] Adam Vazquez DPM [facility] [address] [address] 03/26/2022 11:25:19 03/26/2022 12:07:43 Pain in right foot 1829316348 89072 M79.671 Peroneus b feliz tenosynovitis 119822649 M65.879 Metatarsalgia 14552714 M 77.41 Foot callus 617411970 L8 4 Health Concerns Section Related Observation LastModified by Organization Detai ls LastModified Time None Recorded Concern Status LastModified by Organization Details LastModified Time None Recorded Advance Directives Directive N: Payers Encounter Date Sequence Insurance Name Policy Number Policy Burger Covered Member ID Burger Member ID Guarantor Name 08/12/2018 1 [facility] [employer] [id number] Nick Watts [id number] Nick Watts 09/15/2018 1 [facility] INDEMNITY PLAN - [employer]ICARE [id number] 5 Nick Watts [id number] Nick Watts 10/14/2018 1 [facility] INDEMNITY PLAN - [employer] [id number] 5 Nick Watts [id number] Nick Watts 11/25/2018 1 [facility] [id number] iNck Watts [id number] Nick Watts 03/26/2022 1 [facility] [id number] Nick Watts [id number] Nick Watts Notes Date Note Type Note Provider Name and Address Organization Details Recorded Time 08/12/2018 text/html Foot PainReporte d bypatient.Location :left; anterior Quality:aching; improving Severity:pain level /10 Duration:1 weeks Timing:recurrent Context:cannot identify Alleviating Factors:ice Associated Symptoms:no weakness; no numbness; no tingling; no redness; no warmth; no radiation down leg; no drainage; no aching; no throbbing;swelling Previous Surgery:none Prior Imaging:x ray Previous Injections:none Previous Treatments:noneNot es:Patient is here for left foot pain. He states Thursday he did a lot of heavy lifting. He states the foot swelled up. He states he still has pain in the fore foot on the top and bottom. He states the foot aches and causes him to limp. He states it has improved since his last visit. He states he has iced and elevated the foot as well as rolled his calves with a ball. He states he has had gout before. Adam Vazquez DPM [address], [address], [facility] 08/12/2018 16:26:04 09/15/2018 text/html Laser WartReport ed bypatient.Location :right Alleviating Factors:nothing helps Aggravating Factors:cannot identify Associated Symptoms:no weakness; no numbness; no tingling; no swelling; no redness; no warmth; no radiation down leg; no drainage; no aching; no throbbingNotes:Ebony campos presents to the office for a laser wart treatment on his right foot and to follow up on left foot pain. He states the warts seem to be getting better and smaller. The left foot pain is better as well. Adam Vazquez DPM [address], [phone], [facility] 09/15/2018 13:26:57 10/14/2018 text/html Laser WartReport ed bypatient.Location :right Alleviating Factors:nothing helps Aggravating Factors:cannot identify Associated Symptoms:no weakness; no numbness; no tingling; no swelling; no redness; no warmth; no radiation down leg; no drainage; no aching; no throbbingNotes:Ebony campos presents to the office for a laser wart treatment on his right foot. He states it is doing well and he is not having any pain. Adam Vazquez DPM [address], [address], [facility] 10/14/2018 13:32:23 11/25/2018 text/html Laser WartReport ed bypatient.Location :right Alleviating Factors:nothing helps Aggravating Factors:cannot identify Associated Symptoms:no weakness; no numbness; no tingling; no swelling; no redness; no warmth; no radiation down leg; no drainage; no aching; no throbbingNotes:Ebony campos presents to the office for a laser wart treatment on his right foot. He states it is doing well and he is not having any pain. He believes the warts are pretty much gone. Adam Vazquez DPM [address], [phone], [facility] 11/25/2018 11:18:06 03/26/2022 text/html Foot PainReporte d bypatient.Location :right; lateral Quality:sharp Duration:1.5 months Timing:nighttime Context:cannot identify Alleviating Factors:rest Aggravating Factors:standing; walking; weight bearing Associated Symptoms:no weakness; no numbness; no tingling; no redness; no warmth; no radiation down leg; no drainage; no aching; no throbbing;swelling Previous Surgery:none Prior Imaging:none Previous Injections:none Previous Treatments:noneNot es:Carter presents to the office today for right lateral foot pain. He reports it has been going on for the last month and a half. He denies any injury to associate with the pain. He reports the pain level increases after being on his feet all day. He denies any weakness, numbness, tingling, or swelling. He describes the pain as sharp. He is noted to have swelling on the lateral side of the right foot. Adam Vazquez DPM [address] [address], [place], [address], [facility] - [facility] 03/26/2022 12:05:45
--- OUTSIDE RECORDS SUMMARY | 2024-11-08 18:26 | XMS_ITS | Encounter Summary ---
Author Organization [facility] Address [address] [place] [address] Phone Care Team Providers Care Director Orange Name Role Phone Luis M Dempsey MD Primary Care Provider Frankie Marion MD Unavailable [phone] Rosas Triana MD Unavailable Eduardo Chen [facility] Unavailable Billy Tsang RN Unavailable Kimberly Raman MD Primary Care Provider Asher Coleman PA-C Unavailable Encounter Details Date Type Department Care Team (Late st Contact Info) Description 10/24/2021 Procedure Pass [facility] Imaging Department, [facility] [place], [place] [address] Usha Milner [facility], Mi L1 [place] [address] Social History Tobacco Use Types Packs/Day Years [...] Visit [facility] [address] [address] Sang Matthews MD, MPH 221 [place] [address] [email or web address] 12/08/2024 11:50 AM EDT Blood Draw Laboratory Services, [facility] [address] [place] [facility] [address] [place], [place] Malorie Mckeon MD [address] [place] [address] @[email or web address] Yenny Ramon MD 12/08/2024 1:00 PM EDT Office Visit [facility] Urology [address] [place] [address] Robinson Enrique MD [address] [place] [address] [email or web address] 12/08/2024 2:00 PM EDT Office Visit Adult Survivorship Program, [facility] [address] [facility] [address] 6 [place], [place] [phone] Malorie Mckeon MD [address] [place] [address] [email or web address] 02/13/2025 10:10 AM EDT Blood Draw Laboratory Services, [facility] [address] [facility] [address] [place], [place] Etienne Zarate MD 450 [place], [place] [email or web address] 02/13/2025 11:00 AM EDT Office Visit Division of Hematologic Oncology, [facility] [address] [place] [facility], Fl 8 [place] [address] Etienne Zarate MD 450 [place] [address] [email or web address] 03/07/2025 9:00 AM EDT Office Visit Adult Survivorship Program, [facility] [address] [facility], Fl 6 [place] [address] Wilder Melvin MD [address] [place] [address] [email or web address] documented as of this encounter Visit Diagnoses Not on filedocumented in this encounter Additional Health Concerns Assessment Noted Time PHQ-2 Depression Total Score: 0 02/22/20 21 9:24 AM EDT documented as of this encounter Care Teams Director Orange Relationship Specialty Start Date End Date Luis M Dempsey MD [address] [place] [address] [place] [address] PCP - General 02/28/14 05/20/22 Kimberly Raman MD 20 [facility] Primary Care - 4th [place] [address] [email or web address] PCP - General Internal Medicine 05/21/22 Asher Coleman PAMaryC 20 [place] [address] [email or web address] PCP - Resident PCP Physician Procurement Coordinator 05/21/22 Frankie Marion MD [address] [place] [address] Historical LMR Provider 01/13/15 Rosas Triana MD 165 [place] [address] [email or web address] Historical LMR Provider 01/13/15 Eduardo Chen [facility] ROSLYN 221 [place] [address] [email or web address] Endocrinology 05/12/17 Billy Tsang, RN [address] [place] [address] [email or web address] Primary Infusion Nurse 09/09/17 documented as of this encounter Additional Source Comments The information contained in this document represents components of the legal health record. It is not the complete legal health record.[facility]
--- OUTSIDE RECORDS SUMMARY | 2024-11-08 18:26 | XMS_ITS | Encounter Summary ---
Author Organization [facility] Address [address] [place] [address] Phone Care Team Providers Care Video Poker Floorman Name Role Phone Luis M Dempsey MD Primary Care Provider Frankie Marion MD Unavailable Ayan Anderson NP Unavailable [phone] Khoa Mattson MD Unavailable [phone] Rosas Triana MD Unavailable Yamel Osborne MD Unavailable [phone] Luis M Dempsey MD Unavailable Eduardo Chen [facility] ROSLYN Unavailable Billy Tsang RN Unavailable Kimberly Raman MD Primary Care Provider [phone] Asher Coleman PA-C Unavailable Encounter Details Date Type Department Care Team (Late st Contact Info) Description 10/01/2016 Transcribe Orders [address] [address] Juju Bernal MD Dry eyes (Primary Dx) [...] Description 11/09/2024 8:00 AM EDT Office Visit [facility] [address] [address] Sang Matthews MD, MPH [address] [place] [address] [email or web address] 12/08/2024 11:50 AM EDT Blood Draw Laboratory Services, [facility] 450 [place] [facility] 2 [place] [address] Malorie Mckeon MD [address] [place] [address] [email or web address] Unknown, MD Yenny 12/08/2024 1:00 PM EDT Office Visit [facility] Urology 45 [facility] [address] [address] Robinson Enrique MD [address] [place], [place] [address] [address] [email or web address] 12/08/2024 2:00 PM EDT Office Visit Adult Survivorship Program, [facility] 450 [facility], Nh 6 [place] [address] Malorie Mckeon MD [address] [place] [address] [email or web address] 02/13/2025 10:10 AM EDT Blood Draw Laboratory Services, [facility] [address] [facility] Fl 2 [place] [address] Etienne Zarate MD 450 [place] [address] [email or web address] 02/13/2025 11:00 AM EDT Office Visit Division of Hematologic Oncology, [facility] 450 [facility], Fl 8 [place] [address] Etienne Zarate MD 450 [place] [address] [email or web address] 03/07/2025 9:00 AM EDT Office Visit Adult Survivorship Program, [facility] 450 [facility], Fl 6 [place] [address] Wilder Melvin MD [address] [place] [address] [email or web address] documented as of this encounter Visit Diagnoses Diagnosis Dry eyes- Primary Unspecified tear film insufficiency documented in this encounter Additional Health Concerns Infection Onset Date Last Indicated Resolved Time CoV-Risk 03/27/2021 03/27/2021 04/06/2021 1:24 AM EDT documented as of this encounter Care Teams Video Poker Floorman Relationship Specialty Start Date End Date Luis M Dempsey MD [address] [place] [address] Dr GEE [address] [place] [address] PCP - General 02/28/14 05/20/22 Kimberly Raman MD [address] [place] [address] Primary Care - 4th [place] [address] [email or web address] PCP - General Internal Medicine 05/21/22 Asher Coleman, PA-C 20 [place] [address] [email or web address] PCP - Resident PCP Physician Book Agent 05/21/22 Frankie Marion MD [address] [place] [address] Historical LMR Provider 01/13/15 Ayan Anderson, BRIMMER BLOCKER [address] [place], [place] [address] [address] [email or web address] Historical LMR Provider 01/13/15 09/06/17 Khoa Mattson MD [address] [place] [address] Historical LMR Provider 01/13/15 2 Rosas Triana MD [address] [place] [address] [email or web address] Historical LMR Provider 01/13/15 Yamel Osborne MD [address] [place] [address] [email or web address] Historical LMR Provider 01/13/15 09/07/21 Luis M Dempsey MD [address] [place] [address] [place] [address] Referring Physician Internal Medicine 11/06/15 09/06/17 Eduardo Chen, [facility] ROSLYN [address] [place] [address] [email or web address] 05/12/17 Billy Tsang, RN [address] [place] [address] [email or web address] Primary Infusion Nurse 09/09/17 documented as of this encounter Additional Source Comments The information contained in this document represents components of the legal health record. It is not the complete legal health record.[facility]
--- OUTSIDE RECORDS SUMMARY | 2024-11-08 18:26 | XMS_ITS | Encounter Summary ---
Author Organization [facility] Address [address] [place] [address] Phone Care Team Providers Care Media Clerk Name Role Phone Luis M Dempsey MD Primary Care Provider Frankie Marion MD Unavailable Ayan Anderson NP Unavailable Khoa Mattson MD Unavailable Rosas Triana MD Unavailable Yamel Osborne MD Unavailable [phone] Luis M Dempsey MD Unavailable Eduardo Chen [facility] ROSLYN Unavailable Billy Tasng RN Unavailable Kimberly Raman MD Primary Care Provider [phone] Asher Coleman PA-C Unavailable Encounter Details Date Type Department Care Team (Late st Contact Info) Description 12/31/2016 Procedure Pass [facility] 70 [place] [address] Social History Tobacco Use Types Packs/Day Years [...] Description 11/09/2024 8:00 AM EDT Office Visit [facility] [address] [address] Sang Matthews MD, MPH 221 [place] [address] [email or web address] 12/08/2024 11:50 AM EDT Blood Draw Laboratory Services, [facility] [address] [facility] Fl 2 [place] [address] Malorie Mckeon MD [address] [place] [address] [email or web address] Unknown, Yenny, 12/08/2024 1:00 PM EDT Office Visit [facility] Urology [address] [place] [address] Robinson Enrique MD [address] [place] [address] [email or web address] 12/08/2024 2:00 PM EDT Office Visit Adult Survivorship Program, [facility] [address] [facility] Fl 6 [place] [address] Malorie Mckeon MD [address] [place] [address] @[email or web address] 02/13/2025 10:10 AM EDT Blood Draw Laboratory Services, [facility] [address] [facility] [address] [place] [address] Etienne Zarate MD 450 [place] [address] [email or web address] 02/13/2025 11:00 AM EDT Office Visit Division of Hematologic Oncology, [facility] [address] [facility] Fl 8 [place] [address] Etienne Zarate MD 450 [place] [address] [email or web address] 03/07/2025 9:00 AM EDT Office Visit Adult Survivorship Program, [facility] [address] [facility] Fl 6 [place] [address] Wilder Melvin MD [address] [place] [address] [email or web address] documented as of this encounter Visit Diagnoses Not on filedocumented in this encounter Additional Health Concerns Infection Onset Date Last Indicated Resolved Time CoV-Risk 03/27/2021 03/27/2021 04/06/2021 1:24 AM EDT documented as of this encounter Care Teams Media Clerk Relationship Specialty Start Date End Date Luis M Dempsey MD [address] [place] [address] [place] [address] PCP - General 02/28/14 05/20/22 Kimberly Raman MD 20 [facility] Primary Care - 4th [place] [address] [email or web address] PCP - General Internal Medicine 05/21/22 Asher Coleman Ci, PA-C 20 [place] [address] [email or web address] PCP - Resident PCP Physician Quality Assurance Qa Lab Analyst 05/21/22 Frankie Marion MD [address] [place] [address] Historical LMR Provider 01/13/15 Ayan Anderson, DIRECTOR OF DIETARY [address] [place] [address] [address] [email or web address] Historical LMR Provider 01/13/15 09/06/17 Khoa Mattson MD [address] [place] [address] Historical LMR Provider 01/13/15 2 Rosas Triana MD [address] [place] [address] [email or web address] Historical LMR Provider 01/13/15 Yamel Osborne MD [address] [place] [address] [email or web address] Historical LMR Provider 01/13/15 09/07/21 Luis M Dempsey MD [address] [place] [address] [place] [address] Referring Physician Internal Medicine 11/06/15 09/06/17 Eduardo Chen, [facility] ROSLYN [address] [place] [address] [email or web address] Endocrinology 05/12/17 Billy Tsang, RN [address] [place] [address] [email or web address] Primary Infusion Nurse 09/09/17 documented as of this encounter Additional Source Comments The information contained in this document represents components of the legal health record. It is not the complete legal health record.[facility]
--- OUTSIDE RECORDS SUMMARY | 2024-11-08 18:26 | XMS_ITS | Encounter Summary ---
Author Organization [employer] Address [address] [place] [address] Care Team Providers Care Charge Manager Name Role Phone Kimberly Raman MD Primary Care Provider + Reason for Visit * Reason Comments MSK Encounter Details Date Type Department Care Team (Late st Contact Info) Description 10/09/2024 6:45 AM EST E-Visit [facility] [address] [place] [address] [place] [address] [place] [address] Gouty arthritis of toe (Primary Dx); Abnormal gait Social History Tobacco Use Types Packs/Day Years Used Date Smoking Tobacco: Never Smokeless Tobacco: Never Tobacco Cessation:Counseling Given: Yes Comments:continue Sex and Gender Information Value Date Recorded Sex Assigned at Not on file Legal Sex Male 10:40 AM EDT Gender Identity Not on file Sexual Orientation Not on file documented as of this encounter Last Filed Vital Signs Vital Sign Reading Time Taken Comments Blood Pressure - - Pulse - - Temperature - - Respiratory Rate 18 10/09/2024 6:57 AM EST Oxygen Saturation - - Inhaled Oxygen Concentration - - Weight 79.4 kg (175 lb) 10/09/2024 6:57 AM EST Height 170.2 cm (5' 7 ) 10/09/2024 6:57 AM EST Body Mass Index 27.41 10/09/2024 6:57 AM EST documented in this encounter Functional Status * Is the person deaf or does he/she have serious difficulty hearing? Answer Date of Assessment Author * Is this person blind or does he/she have serious difficulty seeing even when wearing glasses? Answer Date of Assessment Author * Does this person have serious difficulty walking or climbing stairs? Answer Date of Assessment Author * Does this person have difficulty dressing or bathing? Answer Date of Assessment Author * Because of a physical, mental, or emotional condition, does this person have difficulty doing errands alone such as visiting a doctor's office or shopping? Answer Date of Assessment Author documented as of this encounter Mental Status * Because of a physical, mental, or emotional condition, does this person have serious difficulty concentrating, remembering, or making decisions? Answer Entry Date Author documented in this encounter Patient Instructions * Patient Instructions* Sushant Kent NP - 10/09/2024 6:45 AM EST Seek immediate emergency medical attention: Seek immediate emergency medical attention for severe or worsening abdominal pain, difficulty swallowing, stiff neck, shortness of breath, coughing or vomiting up blood, chest pain, increased fever, unexplained weight loss, or blood in stool If you are taking [id number] medication(s) follow the dosing instructions included in the packaging, unless otherwise instructed by your provider. It is important to notify your primary care provider of all medications you are taking, including dfox-cuh-yodoscv medications. If your symptoms do not improve within 3 days, follow up with your primary care provider. Ice for 20 minutes at a time every 2 hours for 72 hours /[id number] Gout GOUT What is gout? Gout is a kind of arthritis - a condition that causes pain and swelling in joints throughout the body. What are the symptoms of gout? Gout is a long-term (chronic) condition that flares up periodically. Any joint can be affected, butfeet are most often involved - especially the joints of the big toe. Flares happen suddenly and usually last for several days. Symptoms typically affect only one joint, and include intense joint painand swelling; joints may feel hot and tender, and appear red. Pain is worse when the joint is movedor touched - even the weight of a bed sheet on the toe may be unbearable. During flares, everyday activities may be difficult. What causes gout? Excess levels of uric acid in the blood cause the release of uric acid crystals into the joints - which causes inflammation, pain and swelling. High uric acid levels can be caused from an underlying medical condition, and made worse by certain foods, medicines, and alcohol consumption. Injuries, illness or surgery can trigger gout attacks. Men are more likely than women to have gout; however, uric acid levels in women rise after menopause, placing older women at greater risk of developing gout. How is gout treated? Preventing gout attacks is one part of the treatment plan, and medications that lower uric acid levels (allopurinol, febuxostat, and probenecid) are often used as preventative therapy. Acute gout attacks (flares) are usually treated with nonsteroidal anti- inflammatory medications, such as indomethacin, colchicines, and naproxen. Sometimes, steroids are necessary to treat the inflammation during an acute attack. Your provider will tell you how much medicine is safe to take. Unless instructed to do so by your provider, do not take more medicine than what is recommended on the prescription or package label. If you have questions about your medicine, talk to your provider or pharmacist. Rest the affected joint until symptoms improve. Maintain a healthy weight. Aspirin can increase the risk of developing gout - check with your primary care provider before using. Avoid foods high in purines, which are known to increase uric acid levels, including liver and other organ meats, sardines and anchovies, dried beans and peas. Stop drinking alcohol. Wait several days after the acute attack is over before resuming medications to lower uric acid levels. What are the complications of gout? If fluid accumulation around the joint is severe, it may be necessary for your primary care provider or a specialist to remove the fluid with a needle. Injections directly into the joint may also be necessary in severe cases. Because gout is caused by the buildup of uric acid crystals, people with gout are at risk of also developing kidney stones from the crystals. When should I call my primary care provider? If you have a fever during a flare up, or you experience a loss of movement in the affected joint, contact your primary care provider right away. Follow up with your primary care provider if you do not begin to get relief within 3 days, or if symptoms worsen. documented in this encounter Progress Notes * Sushant Kent NP - 10/09/2024 6:45 AM EST Images from the original note were not included. Virtual Visit Subjective: Subjective Patient ID: Nick Watts is a 59 y.o. male. HPI Patient states I am having significant pain in my left big toe I have had gout last February 2024 and prior to that at least 8 years ago always pain in big toe pain started subtly yesterday and increased until really noticed it tonight big toe very shiny harrdd to walk and even have sheet touch it Tx w pred nisone taper which cleared the pain i have been drinking lots of water and working to eat best foods Denies fevers, able to ambulate with some difficulty Patient has provided virtual consent for medical evaluation and management. I discussed the limitations of evaluation and management by telemedicine as they relates to this visit and patient expressed understanding and agreed to proceed Patient performed indicated self-exam with provider guided assistance. Patient location confirmed with patient. Provider is licensed in the state the patient is currentlylocated in. Patient confirmed they are currently in the [facility] and verified their current location. MSKPatiphill presents with: Pain Chronicity: New Onset: 2 days History of trauma: No Progression since onset: Gradually worsening Affected location(s): Lower body Affected location(s) - Lower Body:: Toe Laterality: On the left Quality/Characterisitics: Dull Pain severity: Mild Associated symptoms: redness, swelling and warmth Associated symptoms: no chills, no fever, not non-weight bearing and no joint instability Aggravated factor: Activity Activity: Walking Allevating factors: Medication Medication: RX Treatments tried: OTC pain meds and prescription medications Improvement on treatment: Moderate Risk factors: gout Review of Systems Constitutional: Negative for chills and fever. Respiratory: Negative for shortness of breath. Musculoskeletal: Positive for gait problem and joint swelling. All other systems reviewed and are negative. Social History Tobacco Use Smoking Status Never Smokeless Tobacco Never Tobacco Comments continue Past Medical History: Diagnosis Date Chronic kidney disease Disease of thyroid gland Gout Leukemia in remission (CMS/HCC and HHS/HCC) Past Surgical History: Procedure Laterality Date APPENDECTOMY SPINE SURGERY No family history on file. Objective: Objective Physical Exam Constitutional: General: He is not in acute distress. Appearance: Normal appearance. Eyes: Comments: Eyes observed on camera. Sclera white. No lumps, erythema, lesions, or drainage. Pupils are equal. Pulmonary: Comments: Patient appears to be breathing normal on camera and able to talk in complete sentences during visit. Musculoskeletal: Feet: Feet: Left foot: Skin integrity: Erythema and warmth present. Neurological: Mental Status: He is alert and oriented to person, place, and time. Psychiatric: Mood and Affect: Mood normal. Behavior: Behavior normal. Assessment/Plan: Assessment HPI provided by Self Based on today's visit:history and physical exam only, as no relevant testing deemed necessary patient's visit diagnosis is/includes 1. Gouty arthritis of toe 2. Abnormal gait Patient has a history of chronic conditions and those listed in the visit diagnoses were reviewed today. They are currently stable on medications. Plan Treatment plan includes: Orders Placed: No orders of the defined types were placed in this encounter. Medications ordered this visit Signed Prescriptions Disp Refills predniSONE (DELTASONE) 10 MG tablet 28 tablet 0 Sig: Take 4 tablets (40 mg total) by mouth daily for 4 days, THEN 2 tablets (20 mg total) daily for4 days, THEN 1 tablet (10 mg total) daily for 4 days. Current medication list and any new medications prescribed or recommended today were reviewed with the patient and specific instructions were provided Yes Provider Recommendations Patient appeared stable throughout visit and showed no signs of distress on video. Instructed patient to follow up with UC or ER, depending on severity of symptoms, for a in person evaluation in 72 hours if no improvement or sooner if symptoms worsen. Red flags and plan of care reviewed and discussed with patient. Verbalized understanding and voiced no questions or concerns. Pt is being started on oral steroids today. Discussed possible SE to include jitteriness, anxiety, insomnia, increased appetite, GI disturbance and GI bleeding. Pt instructed to take full course of medication as prescribed. Pt advised take all doses with food and to discontinue and contact a healthcare provider if GI upset occurs. Pt advised to take acid veneer press operator daily while taking oral steroids. All questions answered. [facility] virtual visit completed within [facility] guidelines. Provider directed patient of whatto do during physical exam to assist in the assessment of the patient. Physical exam was limited due to video visit. Gout recommendations You should stay away from these types of food: Beer and grain liquors (such as vodka and whiskey) Red meat such as beef, figueroa, mutton, pork, veal, and venison Organ meats, such as liver, kidneys, and glandular meats such as the thymus or pancreas (you may hear them called sweetbreads) Seafood, especially shellfish such as shrimp, lobster, mussels, anchovies, and sardines High-fructose products such as soda and some juices, cereal, ice cream, candy, and fast food Game meats such as goose, veal and venison Dragoon Gravy and meat sauces Yeast and yeast extract You???ll want to go for low-purine options such as: Low-fat and nondairy- fat products, such as yogurt and skim milk Fresh fruits (low sugar) and vegetables Nuts, peanut butter, and grains Fat and oil Potatoes, rice, bread, and pasta Eggs (in moderation) Meats such as fish, chicken, and red meat are fine in moderation (around 4 to 6 ounces per day) Cherries, blueberries, strawberries Tofu You may see vegetables such as spinach and asparagus on the high-purine list, but studies show theydon???t raise your risk of gout or gout attacks. Beans and soy products are also good choices for lowering uric acid. Follow up care instructions were provided and reviewed?with the Patient. All questions were answered. Patient verbalized understanding of plan of care today. Excerebration of gout in left great toe Prednisone Please consider completing your survey about today's visit when you receive it in your e-mail as this help us improve our care. It is always nice to hear that you were happy with your visit and feeling better! If you have any questions or concerns about your visit, please contact our virtual care customer support center at [phone] I have verified the patient's location, and I am licensed to practice in that state. Audio and video technology were used to conduct this virtual visit. Patient (or parent/guardian as applicable) consented to virtual care. Patient is: not a minor documented in this encounter Plan of Treatment Not on file documented as of this encounter Visit Diagnoses Diagnosis Gouty arthritis of toe- Primary Gouty arthropathy, unspecified Abnormal gait Abnormality of gait documented in this encounter Care Teams Charge Manager Relationship Specialty Start Date End Date Kimberly Raman MD [address] [place] [phone] PCP - General Internal Medicine 11/17/22 documented as of this encounter
--- OUTSIDE RECORDS SUMMARY | 2024-11-08 18:26 | XMS_ITS | Encounter Summary ---
Author Organization [facility] Address [address] [place] [phone] Phone Care Team Providers Care Expert Medical Writer Name Role Phone Luis M Dempsey MD Primary Care Provider Frankie Marion MD Unavailable Khoa Mattson MD Unavailable Rsoas Triana MD Unavailable Yamel Osborne MD Unavailable [phone] Eduardo Chen [facility] Unavailable Billy Tsang RN Unavailable Kimberly Raman MD Primary Care Provider Asher Coleman PA-C Unavailable Encounter Details Date Type Department Care Team (Latest Contact Info) Description 12/31/2018 Transcribe Orders [facility] [address] [address] Olga Felix MD [address] [place] [phone] [email or web address] Dry eye (Primary Dx) Social History [...] Description 11/09/2024 8:00 AM EDT Office Visit [facility] [address] [address] Sang Matthews MD, MPH [address] [place] [address] [email or web address] 12/08/2024 11:50 AM EDT Blood Draw Laboratory Services, [facility] [address] [employer] [facility] [address] [place] [address] Malorie Mckeon MD [address] [place] [address] [email or web address], MD Yenny 12/08/2024 1:00 PM EDT Office Visit [facility] Urology [address] [address] Robinson Enrique MD [address] [place], [place] [address] [address] [email or web address] 12/08/2024 2:00 PM EDT Office Visit Adult Survivorship Program, [facility] [address] [employer] [place] [address] [place] [address] Malorie Mckeon MD [address] [place] [address] [email or web address] 02/13/2025 10:10 AM EDT Blood Draw Laboratory Services, [facility] [address] [facility] [address] [place] [address] Etienne Zarate MD [address] [place] [address] [email or web address] 02/13/2025 11:00 AM EDT Office Visit Division of Hematologic Oncology, [facility] [address] [facility] [place] [address] Etienne Zarate MD [address] [place] [address] [email or web address] 03/07/2025 9:00 AM EDT Office Visit Adult Survivorship Program, [facility] [address] [facility] [place] [address] Wilder Melvin MD [address] [place] [phone] [email or web address] documented as of this encounter Procedures Procedure Name Priority Date/Time Associated Diagnosis Comments AUTOLOGOUS SERUM FOR TEARS LAB BLOOD DRAW Routine 12/31/2018 10:11 AM EDT Dry eye documented in this encounter Results * AUTOLOGOUS SERUM FOR TEARS LAB BLOOD DRAW (12/31/2018 10:11 AM EDT) Tubes Drawn [address] [place] [address] [facility] 12/31/2018 10:1 1 AM EDT 12/31/2018 11:30 AM EDT Andres Milner MD,MPH,[place]c [place] [address], [facility] documented in this encounter Visit Diagnoses Diagnosis Dry eye- Primary documented in this encounter Additional Health Concerns Infection Onset Date Last Indicated Resolved Time CoV-Risk 03/27/2021 03/27/202104/0604/06/2021 1:24 AM EDT Assessment Noted Time PHQ-2 Depression Total Score: 0 04/22/20 18 3:04 PM EDT documented as of this encounter Care Teams Expert Medical Writer Relationship Specialty Start Date End Date Luis M Dempsey MD [address] [place] [address] [place] [address] PCP - General 02/28/14 05/20/22 Kimberly Raman MD 20 [facility] Primary Care - [address] [place] [address] [email or web address] PCP - General Internal Medicine 05/21/22 Asher Coleman PAMaryC 20 [place] [address] PCP - Resident PCP Physician Brass Cutter 05/21/22 Frankie Marion MD [address] [place] [address] Historical LMR Provider 01/13/15 Khoa Mattson MD [address] [place] [address] Historical LMR Provider 01/13/15 2 Rosas Triana MD [address] [place] [address] [email or web address] Historical LMR Provider 01/13/15 Yamel Osborne MD [address] [place] [address] [email or web address] Historical LMR Provider 01/13/15 09/07/21 Eduardo Chen [facility] ROSLYN [address] [place], [place] [id number] [email or web address] Endocrinology 05/12/17 Billy Tsang RN [address] [place] [address] [email or web address] Primary Infusion Nurse 09/09/17 documented as of this encounter Additional Source Comments The information contained in this document represents components of the legal health record. It is not the complete legal health record.[facility]
--- OUTSIDE RECORDS SUMMARY | 2024-11-08 18:26 | XMS_ITS | Clinical Summary ---
Author Organization [employer] Address [address] [place] [address] Care Team Providers Care Watch Assembler Name Role Phone Kimberly Raman MD Primary Care Provider + Allergies Active Allergy Reactions Criticality Noted Date Comments Ceftazidime Other (See Comments),Rash Low 0 fever Cephalosporins Other (See Comments),Rash Low 2009 fever Medications levothyroxine (SYNTHROID) 50 MCG tablet Take 1 tablet (50 mcg total) by mouth daily Active lisinopriL (ZESTRIL) 10 MG tablet Take 1 tablet (10 mg total) by mouth daily Active potassium bicarbonate (K-LYTE) 25 MEQ disintegrating tablet Take 1 tablet (25 mEq total) by mouth 2 (two) times a day Active sodium chloride (OCEAN) 0.65 % nasal spray Instill 1 spray into each nostril as needed for congestion 15 mL 12 06/14/20 24 025 Active predniSONE (DELTASONE) 10 MG tablet Take 4 tablets (40 mg total) by mouth daily for 4 days, THEN 2 tablets (20 mg total) daily for 4 days, THEN 1 tablet (10 mg total) daily for 4 days. 28 tablet 10/09/19 25 025 Encounters Date Type Department Care Team Description 10/09/2024 6:45 AM EST E-Visit [facility] [address] [place] [address] Sushant Kent NP Gouty arthritis of toe (Primary Dx); Abnormal gait from Last 3 Months Immunizations Name Administration Dates Next Due Flucelvax Trivalent PFS IM; Without Preservative (18+ mos) 06/19/2023 PPD Test 11/14/2022 Social History Tobacco Use Types Packs/Day Years Used Date Smoking Tobacco: Never Smokeless Tobacco: Never Tobacco Cessation:Counseling Given: Yes Comments:continue Sex and Gender Information Value Date Recorded Sex Assigned at Not on file Legal Sex Male 10:40 AM EDT Gender Identity Not on file Sexual Orientation Not on file Last Filed Vital Signs Vital Sign Reading Time Taken Comments Blood Pressure 103/68 06/14/2024 3:54 PM EDT Pulse 77 06/14/2024 3:54 PM EDT Temperature 36.2 ??C (97.2 ??F) 06/14/2024 3:54 PM ED T Respiratory Rate 18 10/09/2024 6:57 AM EST Oxygen Saturation 95% 06/14/2024 3:54 PM EDT Inhaled Oxygen Concentration - - Weight 79.4 kg (175 lb) 10/09/2024 6:57 AM EST Height 170.2 cm (5' 7 ) 10/09/2024 6:57 AM EST Body Mass Index 27.41 10/09/2024 6:57 AM EST Plan of Treatment Health Maintenance Due Date Last Done Comments Colorectal Cancer: COLONOSCOPY Screening every 10 yrs (or Modifier) 1967 Depression: Screening Annually using PHQ-2/9 in Adults 18 yrs or above (or HM Modifier)([facility]) 1985 Hepatitis C Virus Infection in Adolescents and Adults: Screening (or Modifier) ([facility]) 1985 SDOH Screening Reminder: Annually for all adults ([facility]) 1985 Colorectal Cancer Screening 45 -75 Yrs (or HM Modifier) 02/11/2012 Colorectal Cancer: FLEXIBLE SIGMOIDOSCOPY Screening every 5 yrs 02/11/2012 Colorectal Cancer: Fecal Immunochemical Test (FIT) Annually [facility] 02/11/2012 Colorectal Cancer: High-sensitivity gFOBT Screening Annually [facility] 02/11/2012 Colorectal Cancer: Stool Cologuard Screening every 3 yrs 02/11/2012 Colorectal Cancer:CT Colonography Screening every 5 yrs 02/11/2012 Flu Vaccination: Yearly for ages 18mos through 64 years (or Modifier)([facility]) 03/31/2024 06/19/2023, 06/05/2022, 07/03/2016, Additional history exists COVID-19 Vaccine Screening: Initial Series and Booster Status ([facility]) ( - 2023-25 season) 2024 07/30/2021, 10/28/2020, 10/08/2020, Additional history exists Lipid Screening: Every 5 yrs for Men aged 35+ (or HM Modifier) ([facility] ) 02/12/2028 02/11/2023 DTaP/Tdap/Td Vaccines ([facility]) (5 - Td or Tdap) 05/09/2029 05/09/2019, 06/21/2012, 08/18/2011, Additional history exists Pneumococcal Vaccination Screening: Pts 0-19 & 19-64 yrs of age ([facility] ) Aged Out 05/09/2019, 06/21/2012, 08/18/2011, Additional history exists No longer eligible based on patient's age to complete this topic Zoster/Shingles Vaccine Series Screening: Adults aged 18+ yrs (or HM Modifiers)([facility] ) Completed 09/07/2019, 05/09/2019 Medical Devices Not on file Insurance [facility] Care Teams Watch Assembler Relationship Specialty Start Date End Date Kimberly Raman MD [address] [place] [address] PCP - General Internal Medicine 11/17/22
--- OUTSIDE RECORDS SUMMARY | 2024-11-08 18:26 | XMS_ITS | Encounter Summary ---
Author Organization [facility] Address [address] [place] [address] Phone Care Team Providers Care Police Surgeon Name Role Phone Luis M Dempsey MD Primary Care Provider Frankie Marion MD Unavailable Ayan Anderson NP Unavailable [phone] Khoa Mattson MD Unavailable Rosas Triana MD Unavailable Yamel Osborne MD Unavailable [phone] Luis M Dempsey MD Unavailable Eduardo Chen [facility] ROSLYN Unavailable Billy Tsang RN Unavailable Kimberly Raman MD Primary Care Provider Asher Coleman PA-C Unavailable Reason for Visit * Reason Onset Date Comments Medication Refill 05/20/2016 Encounter Details Date Type Department Care Team (Late st Contact Info) Description 05/20/2016 Refill EMA [address] [address] Andres Milner MD,MPH,MSc [address] [place] [address] [email or web address] Medication Refill Social History Tobacco Use Types Packs/Day Years [...] Description 11/09/2024 8:00 AM EDT Office Visit [facility] [address] [place] [address] Sang Matthews MD, MPH [address] [place] [address] [email or web address] 12/08/2024 11:50 AM EDT Blood Draw Laboratory Services, [facility] [address] [employer] [facility] 2 [place], [place] Malorie Mckeon MD [address] [place] [address] [email or web address] Yenny, MD Yenny 12/08/2024 1:00 PM EDT Office Visit [facility] Urology [address] [place] [address] Robinson Enrique MD [address] [place], [place] [address] [address] AMBER@[email or web address] 12/08/2024 2:00 PM EDT Office Visit Adult Survivorship Program, [facility] [address] [facility], Fl 6 [place], [place] [phone] Malorie Mckeon MD [address] [place] [address] @[facility] 02/13/2025 10:10 AM EDT Blood Draw Laboratory Services, [facility] [address] Fl [address] [place] [address] Etienne Zarate MD 450 [place] [address] Brook@[email or web address] 02/13/2025 11:00 AM EDT Office Visit Division of Hematologic Oncology, [facility] [address] [facility], Fl 8 [place] [address] Etienne Zarate MD 450 [place] [address] Brook@[email or web address] 03/07/2025 9:00 AM EDT Office Visit Adult Survivorship Program, [facility] [address] [facility], Fl 6 [place] [address] Wilder Melvni MD [address] [place] [address] [email or web address] documented as of this encounter Visit Diagnoses Not on filedocumented in this encounter Additional Health Concerns Infection Onset Date Last Indicated Resolved Time CoV-Risk 03/27/2021 03/27/2021 04/06/2021 1:24 AM EDT documented as of this encounter Care Teams Police Surgeon Relationship Specialty Start Date End Date Luis M Dempsey MD [address] [place] [address] [place] [address] PCP - General 02/28/14 05/20/22 Kimberly Raman MD [address] [place] [address] Primary Care - 4th [place] [address] [email or web address] PCP - General Internal Medicine 05/21/22 Asher Coleman PA-C 20 [place] [address] [email or web address] PCP - Resident PCP Physician Airplane Patroller 05/21/22 Frankie Marion MD 450 [place] [address] Historical LMR Provider 01/13/15 Ayan Anderson NP [address] [place], [place] [address] [address] [email or web address] Historical LMR Provider 01/13/15 09/06/17 Khoa Mattson MD [address] [place] [address] Historical LMR Provider 01/13/15 2 Rosas Triana MD [address] [place] [address] [email or web address] Historical LMR Provider 01/13/15 Yamel Osborne MD [address] [place] [address] [email or web address] Historical LMR Provider 01/13/15 09/07/21 Luis M Dempsey MD [address] [place] [address] [place] [address] Referring Physician Internal Medicine 11/06/15 09/06/17 Eduardo Chen, [facility] ROSLYN [address] [place] [address] [email or web address] Endocrinology 05/12/17 Billy Tsang, PRANAV [address] [place] [address] [email or web address] Primary Infusion Nurse 09/09/17 documented as of this encounter Additional Source Comments The information contained in this document represents components of the legal health record. It is not the complete legal health record.[facility]
--- OUTSIDE RECORDS SUMMARY | 2024-11-08 18:26 | XMS_ITS | Encounter Summary ---
Author Organization [facility] Address [address] [place] [address] Phone Care Team Providers Care Manager Dish Name Role Phone Luis M Dempsey MD Primary Care Provider Frankie Marion MD Unavailable Khoa Mattson MD Unavailable [phone] Rosas Triana MD Unavailable Yamel Osborne MD Unavailable [phone] Eduardo Chen [facility] Unavailable Billy Tsang RN Unavailable [phone] Kimberly Raman MD Primary Care Provider Asher Coleman PA-C Unavailable Encounter Details Date Type Department Care Team (Latest Contact Info) Description 05/20/2018 Transcribe Orders [facility] [address] [address] Andres Milner MD,MPH,MSc [address] [place] [address] [email or web address] Dry eyes (Primary Dx) Social History [...] Description 11/09/2024 8:00 AM EDT Office Visit [facility] [address] [address] Sang Matthews MD, MPH [address] [place] [address] [email or web address]@[facility] 12/08/2024 11:50 AM EDT Blood Draw Laboratory Services, [facility] [facility] [address] [facility] 2 [place] [address] Malorie Mckeon MD [address] [place] [address] [email or web address] Unknown, MD Yenny 12/08/2024 1:00 PM EDT Office Visit [facility] Urology 45 [facility] [address] Robinson Enrique MD [address] [place], [place] [address] [address] [email or web address] 12/08/2024 2:00 PM EDT Office Visit Adult Survivorship Program, [facility] [address] [employer] [facility], Fl 6 [place] [address] Malorie Mckeon MD [address] [place] [address] [email or web address] 02/13/2025 10:10 AM EDT Blood Draw Laboratory Services, [facility] [address] [facility] Fl 2 [place] [address] Etienne Zarate MD 450 [place] [address] Brook@[email or web address] 02/13/2025 11:00 AM EDT Office Visit Division of Hematologic Oncology, [facility] [address] [employer] [facility], Fl 8 [place] [address] Etienne Zarate MD 450 [place] [address] Brook@[facility] 03/07/2025 9:00 AM EDT Office Visit Adult Survivorship Program, [facility] [address] [facility], Fl 6 [place] [address] Wilder Melvin MD [address] [place] [address] [email or web address] documented as of this encounter Results * Autologous serum for tears lab blood draw ([facility] (05/20/2018 10:50 AM EDT) Tubes Drawn 6 [facility] 05/20/2018 10:5 0 AM EDT 05/20/2018 11:05 AM EDT Andres Milner MD,MPH,MSc LAB BLOOD ORDERABLE S [facility] [place] [address], [facility] documented in this encounter Visit Diagnoses Diagnosis Dry eyes- Primary Unspecified tear film insufficiency documented in this encounter Additional Health Concerns Infection Onset Date Last Indicated Resolved Time CoV-Risk 03/27/2021 03/27/2021 04/06/2021 1:24 AM EDT Assessment Noted Time PHQ-2 Depression Total Score: 0 04/22/20 18 3:04 PM EDT documented as of this encounter Care Teams Manager Dish Relationship Specialty Start Date End Date Luis M Dempsey MD [address] [place] [address] [place] [address] PCP - General 02/28/14 05/20/22 Kimberly Raman MD 20 [facility] Primary Care - 4th [place] [address] [email or web address] PCP - General Internal Medicine 05/21/22 Asher Coleman PA-C 20 [place] [address] PCP - Resident PCP Physician Strap Machine Operator 05/21/22 Frankie Marion MD 450 [place] [address] Historical LMR Provider 01/13/15 Khoa Mattson MD [address] [place] [address] Historical LMR Provider 01/13/15 2 Rosas Triana MD [address] [place] [address] [email or web address] Historical LMR Provider 01/13/15 Yamel Osborne MD 450 [place] [address] [email or web address] Historical LMR Provider 01/13/15 09/07/21 Eduardo Chen, [facility] ROSLYN [address] [place] [address] [email or web address] Endocrinology 05/12/17 Billy Tsang, PRANAV [address] [place] [address] [email or web address] Primary Infusion Nurse 09/09/17 documented as of this encounter Additional Source Comments The information contained in this document represents components of the legal health record. It is not the complete legal health record.[facility]
--- OUTSIDE RECORDS SUMMARY | 2024-11-08 18:26 | XMS_ITS | Encounter Summary ---
Author Organization [facility] Address [address] [place] [address] Phone Care Team Providers Care Band Singer Name Role Phone Luis M Dempsey MD Primary Care Provider Frankie Marion MD Unavailable [phone] Ayan Anderson NP Unavailable [phone] Khoa Mattson MD Unavailable Rosas Triana MD Unavailable Yamel Osbrone MD Unavailable [phone] Luis M Dempsey MD Unavailable [phone] Eduardo Chen [facility] ROSLYN Unavailable Billy Tsang RN Unavailable [phone] Kimberly Raman MD Primary Care Provider Asher Coleman PA-C Unavailable Encounter Details Date Type Department Care Team (Latest Contact Info) Description 12/30/2016 Transcribe Orders [facility] [address] [address] Andres Milner MD,MPH,MSc [address] [place] [address] [phone] [email or web address] Dry eyes (Primary Dx) Social History [...] Description 11/09/2024 8:00 AM EDT Office Visit [facility] [address] [place] [address] Sang Matthews MD, MPH [address] [place] [address] [email or web address]@[email or web address] 12/08/2024 11:50 AM EDT Blood Draw Laboratory Services, [facility] [address] Fl 2 [place] [address] Malorie Mckeon MD [address] [place] [address] [email or web address] Yenny Ramon MD 12/08/2024 1:00 PM EDT Office Visit [facility] Urology 45 [facility]2-3 [place] [address] Robinson Enrique MD [address] [place], [place] [address]II-3 [place] [address] [email or web address]@[email or web address] 12/08/2024 2:00 PM EDT Office Visit Adult Survivorship Program, [facility] [address] [facility], Fl 6 [place] [address] Malorie Mckeon MD [address] [place] [address] [email or web address] 02/13/2025 10:10 AM EDT Blood Draw Laboratory Services, [facility] [address] Fl 2 [place] [address] Etienne Zarate MD 450 [place] [address] [email or web address] 02/13/2025 11:00 AM EDT Office Visit Division of Hematologic Oncology, [facility] [address], Fl 8 [place] [address] Etienne Zarate MD 450 [place] [address] [email or web address] 03/07/2025 9:00 AM EDT Office Visit Adult Survivorship Program, [facility] [address] [facility], Fl 6 [place] [address] Wilder Melvin MD [address] [place] [address] [email or web address] documented as of this encounter Visit Diagnoses Diagnosis Dry eyes- Primary Unspecified tear film insufficiency documented in this encounter Additional Health Concerns Infection Onset Date Last Indicated Resolved Time CoV-Risk 03/27/2021 03/27/2021 04/06/2021 1:24 AM EDT documented as of this encounter Care Teams Band Singer Relationship Specialty Start Date End Date Luis M Dempsey MD [address] [place] [address] [place] [address] PCP - General 02/28/14 05/20/22 Kimberly Raman MD 20 [facility] Primary Care - [address] [place] [address] [email or web address] PCP - General Internal Medicine 05/21/22 Asher Coleman PA-C [address] [place] [address] [email or web address] PCP - Resident PCP Physician Post Office Clerk 05/21/22 Frankie Marion MD [address] [place] [address] Historical LMR Provider 01/13/15 Ayan Anderson NP [address] [place] [address] [email or web address] Historical LMR Provider 01/13/15 09/06/17 Khoa Mattson MD [address] [place] [address] Historical LMR Provider 01/13/15 Rosas Irvin MD [address] [place] [address] [email or web address] Historical LMR Provider 01/13/15 Yamel Osborne MD [address] [place] [address] [email or web address] Historical LMR Provider 01/13/15 09/07/21 Luis M Dempsey MD [address] [place] [address] [place] [address] Referring Physician Internal Medicine 11/06/15 09/06/17 Eduardo Chen, [facility] ROSLYN [address] [place] [address] [email or web address] Endocrinology 05/12/17 Billy Tsang, RN [address] [place] [address] [email or web address] Primary Infusion Nurse 09/09/17 documented as of this encounter Additional Source Comments The information contained in this document represents components of the legal health record. It is not the complete legal health record.[facility]
--- OUTSIDE RECORDS SUMMARY | 2024-11-08 18:26 | XMS_ITS | Encounter Summary ---
Author Organization [facility] Address [address] [place] [address] Phone Care Team Providers Care Lieutenant Shift Supervisor Name Role Phone Luis M Dempsey MD Primary Care Provider Frankie Marion MD Unavailable Ayan Andersno NP Unavailable [phone] Khoa Mattson MD Unavailable Rosas Triana MD Unavailable Yamel Osborne MD Unavailable [phone] Luis M Dempsey MD Unavailable Eduardo Chen [facility] ROSLYN Unavailable Billy Tsang RN Unavailable Kimberly Raman MD Primary Care Provider [phone] Asher Coleman PA-C Unavailable Encounter Details Date Type Department Care Team (Latest Contact Info) Description 05/20/2016 Transcribe Orders [facility] [address] [address] Andres Milner MD,MPH,MSc [address] [place] [address] [phone] [email or web address] Dry eyes (Primary Dx) Social History [...] Description 11/09/2024 8:00 AM EDT Office Visit [facility] [address] [place] [address] Sang Matthews MD, MPH [address] [place] [address] [email or web address]@[facility] 12/08/2024 11:50 AM EDT Blood Draw Laboratory Services, [facility] [address] Fl 2 [place] [address] Malorie Mckeon MD [address] [place] [address] @[facility] Yenny Ramon MD 12/08/2024 1:00 PM EDT Office Visit [facility] Urology 45 [facility]3 [place] [address] Robinson Enrique MD [address] [place], [place] [address]II-3 [place] [address] [email or web address] 12/08/2024 2:00 PM EDT Office Visit Adult Survivorship Program, [facility] [address], Fl 6 [place] [address] Malorie Mckeon MD [address] [place] [address] [email or web address] 02/13/2025 10:10 AM EDT Blood Draw Laboratory Services, [facility] [address] Fl 2 [place], [place] Etienne Zarate MD 450 [place] [address] Brook@[facility] 02/13/2025 11:00 AM EDT Office Visit Division of Hematologic Oncology, [facility] [address] [facility], Fl 8 [place] [address] Etienne Zarate MD 450 [place] [address] Brook@[facility] 03/07/2025 9:00 AM EDT Office Visit Adult Survivorship Program, [facility] [address] [facility] [facility], Fl 6 [place] [address] Wilder Melvin MD [address] [place] [address] [email or web address] documented as of this encounter Results * Autologous serum for tears lab blood draw (05/20/2016 11:10 AM EDT) Tubes Drawn RECOMMEND ADDITIONAL SPECIMEN IN 6 HOURS [facility] 05/20/2016 11:1 0 AM EDT 05/20/2016 11:18 AM EDT Andres Milner MD,MPH,MSc [place] [address], [facility] documented in this encounter Visit Diagnoses Diagnosis Dry eyes- Primary Unspecified tear film insufficiency documented in this encounter Additional Health Concerns Infection Onset Date Last Indicated Resolved Time CoV-Risk 03/27/2021 03/27/2021 04/06/2021 1:24 AM EDT documented as of this encounter Care Teams Lieutenant Shift Supervisor Relationship Specialty Start Date End Date Luis M Dempsey MD [address] [place] [address] [place] [address] PCP - General 02/28/14 05/20/22 Kimberly Raman MD 20 [facility] Primary Care - 4th [place] [address] [email or web address] PCP - General Internal Medicine 05/21/22 Asher Coleman PAMaryC 20 [place] [address] [email or web address] PCP - Resident PCP Physician Medicare Interviewer 05/21/22 Frankie Marion MD [address] [place] [address] Historical LMR Provider 01/13/15 Ayan Anderson NP [address] [place], [place] [address] [address] [email or web address] Historical LMR Provider 01/13/15 09/06/17 Khoa Mattson MD [address] [place] [address] Historical LMR Provider 01/13/15 2 Rosas Triana MD [address] [place] [address] [email or web address] Historical LMR Provider 01/13/15 Yamel Osborne MD [address] [place] [address] [email or web address] Historical LMR Provider 01/13/15 09/07/21 Luis M Dempsey MD [address] [place] [address] [place] [address] Referring Physician Internal Medicine 11/06/15 09/06/17 Eduadro Chen [facility] ROSLYN [address] [place] [address] [email or web address] Endocrinology 05/12/17 Billy Tsang, RN [address] [place] [address] [email or web address] Primary Infusion Nurse 09/09/17 documented as of this encounter Additional Source Comments The information contained in this document represents components of the legal health record. It is not the complete legal health record.[facility]
--- OUTSIDE RECORDS SUMMARY | 2024-11-08 18:26 | XMS_ITS | Encounter Summary ---
Author Organization [facility] Address [address] [place] [address] Phone Care Team Providers Care Medical Secretary Name Role Phone Luis M Dempsey MD Primary Care Provider Frankie Marion MD Unavailable [phone] Ayan Anderson NP Unavailable [phone] Khoa Mattson MD Unavailable Rosas Triana MD Unavailable Yamel Osborne MD Unavailable [phone] Luis M Dempsey MD Unavailable [phone] Eduardo Chen [facility] ROSLYN Unavailable Billy Tsang RN Unavailable Kimberly Raman MD Primary Care Provider Asher Coleman PA-C Unavailable Encounter Details Date Type Department Care Team (Late st Contact Info) Description 12/30/2016 Transcribe Orders [facility] [address] [address] Andres Milner MD,MPH,MSc [address] [place] [address] [phone] [email or web address] Social History Tobacco Use Types Packs/Day Years [...] Description 11/09/2024 8:00 AM EDT Office Visit [facility] [address] [place] [address] Sang Matthews MD, MPH [address] [place] [address] [email or web address] 12/08/2024 11:50 AM EDT Blood Draw Laboratory Services, [facility] [address] [employer] [facility] [address] [place] [address] Malorie Mckeon MD [address] [place] [address] [email or web address] Yenny Ramon MD 12/08/2024 1:00 PM EDT Office Visit [facility] Urology 45 [facility]2-3 [place] [address] Robinson Enrique MD [address] [place], [place] [address]II[address] [place] [address] [email or web address] 12/08/2024 2:00 PM EDT Office Visit Adult Survivorship Program, [facility] [address] [facility], Fl 6 [place] [address] Malorie Mckeon MD [address] [place] [address] @[facility] 02/13/2025 10:10 AM EDT Blood Draw Laboratory Services, [facility] [address] [place] [address] Etienne Zarate MD 450 [place] [address] Brook@[email or web address] 02/13/2025 11:00 AM EDT Office Visit Division of Hematologic Oncology, [facility] [address], [address] 8 [place] [address] Etienne Zarate MD 450 [place] [address] Brook@[email or web address] 03/07/2025 9:00 AM EDT Office Visit Adult Survivorship Program, [facility] [address], [address] 6 [place] [address] Wilder Melvin MD [address] [place] [address] [email or web address] documented as of this encounter Visit Diagnoses Not on filedocumented in this encounter Additional Health Concerns Infection Onset Date Last Indicated Resolved Time CoV-Risk 03/27/2021 03/27/2021 04/06/2021 1:24 AM EDT documented as of this encounter Care Teams Medical Secretary Relationship Specialty Start Date End Date Luis M Dempsey MD [address] [place] [address] [place] [address] PCP - General 02/28/14 05/20/22 Kimberly Raman MD 20 [facility] Primary Care - 4th [place] [address] [email or web address] PCP - General Internal Medicine 05/21/22 Asher Coleman PA-C [address] [place] [address] [email or web address] PCP - Resident PCP Physician Chief Operating Officer 05/21/22 Frankie Marion MD [address] [place] [address] Historical LMR Provider 01/13/15 Ayan Anderson, JULIANNE [address] [place] [address] [email or web address] Historical LMR Provider 01/13/15 09/06/17 Khoa Mattson MD [address] [place] [address] Historical LMR Provider 01/13/15 Rosas Irvin MD [address] [place] [address] [email or web address] Historical LMR Provider 01/13/15 aYmel Osborne MD [address] [place] [address] [email or web address] Historical LMR Provider 01/13/15 09/07/21 LuisM Dempsey MD [address] [place] [address] [place] [address] Referring Physician Internal Medicine 11/06/15 09/06/17 Eduardo Chen, [facility] ROSLYN [address] [place] [address] [email or web address] Endocrinology 05/12/17 Billy Tsang, PRANAV [address] [place] [address] [email or web address] Primary Infusion Nurse 09/09/17 documented as of this encounter Additional Source Comments The information contained in this document represents components of the legal health record. It is not the complete legal health record.[facility]
--- OUTSIDE RECORDS SUMMARY | 2024-11-08 18:26 | XMS_ITS | Encounter Summary ---
Author Organization [facility] Address [address] [place] [address] Phone Care Team Providers Care Carousel Operator Name Role Phone Luis M Dempsey MD Primary Care Provider Frankie Marion MD Unavailable [phone] Khoa Mattson MD Unavailable [phone] Rosas Triana MD Unavailable Yamel Osborne MD Unavailable [phone] [facility] ROSLYN Unavailable Billy Tsang RN Unavailable Kimberly Raman MD Primary Care Provider Asher Coleman PA-C Unavailable Encounter Details Date Type Department Care Team (Late st Contact Info) Description 04/22/2018 Transcribe Orders [facility] Vascular Lab 75 [place] [address] Dean Whitaker 15 [place] [address] [email or web address] Social History Tobacco Use Types Packs/Day Years [...] Description 11/09/2024 8:00 AM EDT Office Visit [facility] [address] [address] Sang Matthews MD, MPH [address] [place] [address] [email or web address] 12/08/2024 11:50 AM EDT Blood Draw Laboratory Services, [facility] [address] [facility] 2 [place] [address] Malorie Mckeon MD [address] [place] [address] [email or web address] Unknown, Yenny, 12/08/2024 1:00 PM EDT Office Visit [facility] Urology [address] [address] Robinson Enrique MD [address] [place] [address] [email or web address] 12/08/2024 2:00 PM EDT Office Visit Adult Survivorship Program, [facility] [address], [address] [place] [address] Malorie Mckeon MD [address] [place] [address] [email or web address] 02/13/2025 10:10 AM EDT Blood Draw Laboratory Services, [facility] [address] [place] [address] Etienne Zarate MD 450 [place] [address] Brook@[facility] 02/13/2025 11:00 AM EDT Office Visit Division of Hematologic Oncology, [facility] [address] [facility] C[facility], Fl 8 [place] [address] Etienne Zarate MD 450 [place] [address] [email or web address]@[email or web address] 03/07/2025 9:00 AM EDT Office Visit Adult Survivorship Program, [facility] [address] [facility] C[facility], Fl 6 [place] [address] Wilder Melvin MD [address] [place] [address] [email or web address] documented as of this encounter Visit Diagnoses Not on filedocumented in this encounter Additional Health Concerns Infection Onset Date Last Indicated Resolved Time CoV-Risk 03/27/2021 03/27/2021 04/06/2021 1:24 AM EDT Assessment Noted Time PHQ-2 Depression Total Score: 0 04/22/20 18 3:04 PM EDT documented as of this encounter Care Teams Carousel Operator Relationship Specialty Start Date End Date Luis M Dempsey MD [address] [place] [address] [place] [address] PCP - General 02/28/14 05/20/22 Kimberly Raman MD [address] [place] [address] Primary Care - 4th [place] [address] [email or web address] PCP - General Internal Medicine 05/21/22 Asher Coleman PA-C 20 [place] [address] [email or web address] PCP - Resident PCP Physician Residential Finish Carpenter 05/21/22 Frankie Marion MD 450 [place] [address] Historical LMR Provider 01/13/15 Khoa Mattson MD [address] [place] [address] Historical LMR Provider 01/13/15 2 Rosas Triana MD [address] [place] [address] [email or web address] Historical LMR Provider 01/13/15 Yamel Osborne MD 450 [place] [address] [email or web address] Historical LMR Provider 01/13/15 09/07/[address] [facility] ROSLYN [address] [place] [address] [email or web address] Endocrinology 05/12/17 Billy Tsang, PRANAV [address] [place] [address] [email or web address] Primary Infusion Nurse 09/09/17 documented as of this encounter Additional Source Comments The information contained in this document represents components of the legal health record. It is not the complete legal health record.[facility]
--- OUTSIDE RECORDS SUMMARY | 2024-11-08 18:26 | XMS_ITS ---
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 Panel Fast 5 Lipid Panel 11/04/2024 PSA,Total (Free>4and<10) 11/04/2024 TSH reflex Free T4 11/04/2024 UA ClnCatch+Micro w/rflx Cult 11/04/2024 Next Appt Details Provider Name:Luis M wallis, 05/16/2025 01:30:00 PM, [address], [address], [place], [place], [phone], Provider Name:Luis M wallis, 11/06/2025 07:45:00 AM, [address], [address], [place], [place], [phone], Provider Name:Luis M Joy ier, 11/13/2025 01:00:00 PM, [address] [facility], [address], [place], [place], [phone], Progress Notes * Nick LEBRONDOB:1964 (59 yo M)Acc No.[id number]:11/04/2024 Progress Note Patient:?Nick LEBRON Provider:?Luis M Dempsey MD :1965???Age:59 Y???Sex:Male Martinez e:11/04/2024 Address:[address] [place], [place] [id number] Subjective: * Chief Complaints: * ???1. FASTING LABS. * Medical History:? Objective: * Vitals:? 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 Plan: * Treatment: 2.?Hypothyroidism due to med ication?LAB: Complete Blood Count Auto Diff ?LAB: Comprehensive [place]. Panel Fast ?LAB: Lipid Panel ?LAB: PSA,Total (Free>4and<10) ?LAB: TSH reflex Free T4 ?LAB: UA ClnCatch+Micro w/rflx Cult * * The named appointment provid er may or may not be the originator of this progress note, and it is not deemed complete until electronically signed by the appointment provider. Sign off status: Pending * Provider:?Luis M Dempsey MD Date:?0 11/04/2024 Generated for Celia godfrey/Mirta/eTronansmitting on:?11/08/2024 06:26 PM EDT
--- OUTSIDE RECORDS SUMMARY | 2024-11-08 18:26 | XMS_ITS | Encounter Summary ---
Author Organization [facility] Address [address] [place] [address] Phone Care Team Providers Care Strategic Partnership Representative Name Role Phone Luis M Dempsey MD Primary Care Provider Frankie Marion MD Unavailable [phone] Ayan Anderson NP Unavailable Khoa Mattson MD Unavailable Rosas Triana MD Unavailable Yamel Osborne MD Unavailable [phone] Luis M Dempsey MD Unavailable Eduardo Chen [facility] ROSLYN Unavailable Billy Tsang RN Unavailable Kimberly Raman MD Primary Care Provider [phone] Asher Coleman PA-C Unavailable Encounter Details Date Type Department Care Team (Late st Contact Info) Description 10/01/2016 Transcribe Orders [address] [address] Juju Bernal MD Social History Tobacco Use Types Packs/Day Years [...] Description 11/09/2024 8:00 AM EDT Office Visit [facility] [address] [address] Sang Matthews MD, MPH [address] [place] [address] [email or web address] 12/08/2024 11:50 AM EDT Blood Draw Laboratory Services, [facility] [address] [employer] [facility] 2 [place] [address] Malorie Mckeon MD [address] [place] [address] @[facility] Unknown, MD Yenny 12/08/2024 1:00 PM EDT Office Visit [facility] Urology [address] [place] [address] Robinson Enrique MD [address] [place] [address] [email or web address]@[facility] 12/08/2024 2:00 PM EDT Office Visit Adult Survivorship Program, [facility] [address], Wi 6 [place] [address] Malorie Mckeon MD [address] [place] [address] [email or web address] 02/13/2025 10:10 AM EDT Blood Draw Laboratory Services, [facility] [address] [facility] Fl [address] [place] [address] Etienne Zarate MD 450 [place] [address] Brook@[email or web address] 02/13/2025 11:00 AM EDT Office Visit Division of Hematologic Oncology, [facility] [address] [facility] [facility], Fl 8 [place] [address] Etienne Zarate MD 450 [place] [address] Brook@[email or web address] 03/07/2025 9:00 AM EDT Office Visit Adult Survivorship Program, [facility] 450 [facility], Fl 6 [place] [address] Wilder Melvin MD [address] [place] [address] [email or web address] documented as of this encounter Visit Diagnoses Not on filedocumented in this encounter Additional Health Concerns Infection Onset Date Last Indicated Resolved Time CoV-Risk 03/27/2021 03/27/2021 04/06/2021 1:24 AM EDT documented as of this encounter Care Teams Strategic Partnership Representative Relationship Specialty Start Date End Date Luis M Dempsey MD [address] [place] [address] [place] [address] PCP - General 02/28/14 05/20/22 Kimberly Raman MD 20 [facility] Primary Care - 4th [place] [address] [email or web address] PCP - General Internal Medicine 05/21/22 Asher Coleman Ci, PA-C 20 [place] [address] [email or web address] PCP - Resident PCP Physician Testing Shaking Shipping 05/21/22 Frankie Marion MD [address] [place] [address] Historical LMR Provider 01/13/15 Ayan Anderson, JULIANNE [address] [place], [place] [address] [address] [email or web address] Historical LMR Provider 01/13/15 09/06/17 Khoa Mattson MD [address] [place] [address] Historical LMR Provider 01/13/15 2 Rosas Triana MD [address] [place] [address] [email or web address] Historical LMR Provider 01/13/15 Yamel Osborne MD [address] [place] [address] [email or web address] Historical LMR Provider 01/13/15 09/07/21 Luis M Dempsey MD [address] [place] [address] [place] [address] Referring Physician Internal Medicine 11/06/15 09/06/17 Eduardo Chen [facility] ROSLYN [address] [place] [address] [email or web address]@[email or web address] Endocrinology 05/12/17 Billy Tsang, RN [address] [place] [address] [email or web address] Primary Infusion Nurse 09/09/17 documented as of this encounter Additional Source Comments The information contained in this document represents components of the legal health record. It is not the complete legal health record.[facility]
--- OUTSIDE RECORDS SUMMARY | 2024-11-08 18:26 | XMS_ITS | Encounter Summary ---
Author Organization [facility] Address [address] [place] [address] Phone Care Team Providers Care Vice President Tax Name Role Phone Frankie Marion MD Unavailable [phone] Rosas Triana MD Unavailable Eduardo Chen [facility] ROSLYN Unavailable Billy Tsang RN Unavailable Kimberly Raman MD Primary Care Provider Asher Coleman-C Unavailable Encounter Details Date Type Department Care Team (Late st Contact Info) Description 07/14/2022 [facility] 20 [place] [address] Social History Tobacco Use Types Packs/Day Years [...] Description 11/09/2024 8:00 AM EDT Office Visit [facility] [address] [address] Sang Matthews MD, MPH 221 [place] [address] [email or web address] 12/08/2024 11:50 AM EDT Blood Draw Laboratory Services, [facility] [address] [facility] Fl 2 [place] [address] Malorie Mckeon MD [address] [place] [address] [email or web address] Yenny Ramon MD 12/08/2024 1:00 PM EDT Office Visit [facility] Urology [address] [place] [address] Robinson Enrique MD [address] [place] [address] [email or web address] 12/08/2024 2:00 PM EDT Office Visit Adult Survivorship Program, [facility] [address] [facility], Fl 6 [place] [address] Malorie Mckeon MD [address] [place] [address] [email or web address] 02/13/2025 10:10 AM EDT Blood Draw Laboratory Services, [facility] [address] [facility] Fl 2 [place], [place] Etienne Zarate MD [address] [place] [address] [email or web address] 02/13/2025 11:00 AM EDT Office Visit Division of Hematologic Oncology, [facility] [address] [facility] C[facility], Fl 8 [place] [address] Etienne Zarate MD 450 [place] [address] Brook@[email or web address] 03/07/2025 9:00 AM EDT Office Visit Adult Survivorship Program, [facility] 450 [place] [address], Fl 6 [place] [address] Wilder Melvin MD 221 [place] [address] [email or web address] documented as of this encounter Visit Diagnoses Not on filedocumented in this encounter Additional Health Concerns Assessment Noted Time PHQ-2 Depression Total Score: 0 02/22/20 21 9:24 AM EDT documented as of this encounter Care Teams Vice President Tax Relationship Specialty Start Date End Date Kimberly Raman MD 20 [facility] Primary Care - 4th [place] [address] [email or web address] PCP - General Internal Medicine 05/21/22 Asher Coleman PA-C 20 [place] [address] [email or web address] PCP - Resident PCP Physician Color Paste Mixing Supervisor 05/21/22 Frankie Marion MD 450 [place] [address] Historical LMR Provider 01/13/15 Rosas Triana MD [address] [place] [address] Historical LMR Provider 01/13/15 Eduardo Chen, [facility] ROSLYN 221 [place] [address] [email or web address] Endocrinology 05/12/17 Billy Tsang RN [address] [place] [address] [email or web address] Primary Infusion Nurse 09/09/17 documented as of this encounter Additional Source Comments The information contained in this document represents components of the legal health record. It is not the complete legal health record.[facility]
--- OUTSIDE RECORDS SUMMARY | 2024-11-08 18:26 | XMS_ITS | Encounter Summary ---
Author Organization [facility] Address [address] [place] [address] Phone Care Team Providers Care Beet Topper Name Role Phone Luis M Dempsey MD Primary Care Provider Frankie Marion MD Unavailable [phone] Khoa Mattson MD Unavailable [phone] Rosas Triana MD Unavailable Yamel Osborne MD Unavailable [phone] Eduardo Chen [facility] Unavailable Billy Tsang RN Unavailable Kimberly Raman MD Primary Care Provider Asher Coleman PA-C Unavailable Encounter Details Date Type Department Care Team (Latest Contact Info) Description 09/09/2018 Transcribe Orders [facility] [address] [address] Olga Felix MD [address] [place] [address] [email or web address] Dry eyes (Primary Dx) Social History Tobacco [...] Description 11/09/2024 8:00 AM EDT Office Visit [facility] [address] [address] Sang Matthews MD, MPH 221 [place] [address] [email or web address] 12/08/2024 11:50 AM EDT Blood Draw Laboratory Services, [facility] [address] HouseTripwt[address]n Magazin [facility] 2 [place] [address] Malorie Mckeon MD [address] [place] [address] [email or web address], MD Yenny 12/08/2024 1:00 PM EDT Office Visit [facility] Urology [address] [address] Robinson Enrique MD [address] [place], [place] [address] [address] [email or web address] 12/08/2024 2:00 PM EDT Office Visit Adult Survivorship Program, [facility] 450 Room 77wt3n Magazin [facility], Al 6 [place] [address] Malorie Mckeon MD [address] [place] [address] [email or web address] 02/13/2025 10:10 AM EDT Blood Draw Laboratory Services, [facility] [address] [facility] [address] [place] [address] Etienne Zarate MD 450 [place] [address] [email or web address] 02/13/2025 11:00 AM EDT Office Visit Division of Hematologic Oncology, [facility] [address] [facility] [address] 8 [place] [address] Etienne Zarate MD 450 [place] [address] [email or web address] 03/07/2025 9:00 AM EDT Office Visit Adult Survivorship Program, [facility] [address] [facility] [address] 6 [place] [address] Wilder Melvin MD [address] [place] [address] [email or web address] documented as of this encounter Procedures Procedure Name Priority Date/Time Associated Diagnosis Comments AUTOLOGOUS SERUM FOR TEARS LAB BLOOD DRAW Routine 09/09/2018 10:46 AM EST Dry eyes documented in this encounter Results * AUTOLOGOUS SERUM FOR TEARS LAB BLOOD DRAW (09/09/2018 10:46 AM EST) Tubes Drawn [address] [place] [address] [facility] 09/09/2018 10:4 6 AM EST 09/09/2018 11:07 AM EST Olga Felix MD LAB BLOOD ORDERABLES [place] [address], [facility] documented in this encounter Visit Diagnoses Diagnosis Dry eyes- Primary Unspecified tear film insufficiency documented in this encounter Additional Health Concerns Infection Onset Date Last Indicated Resolved Time CoV-Risk 03/27/2021 03/27/2021 04/06/2021 1:24 AM EDT Assessment Noted Time PHQ-2 Depression Total Score: 0 04/22/20 18 3:04 PM EDT documented as of this encounter Care Teams Beet Topper Relationship Specialty Start Date End Date Luis M Dempsey MD [address] [place] [address] [place] [address] PCP - General 02/28/14 05/20/22 Kimberly Raman MD 20 [facility] Primary Care - 4th [place] [address] [email or web address] PCP - General Internal Medicine 05/21/22 Asher Coleman PA-C 20 [place] [address] PCP - Resident PCP Physician Commercial Illustrator 05/21/22 Frankie Marion MD 450 [place] [address] Historical LMR Provider 01/13/15 Khoa Mattson MD [address] [place] [address] Historical LMR Provider 01/13/15 2 Rosas Triana MD [address] [place] [address] [email or web address] Historical LMR Provider 01/13/15 Yamel Osborne MD 450 [place] [address] [email or web address] Historical LMR Provider 01/13/15 09/07/21 Eduardo Chen, [facility] ROSLYN [address] [place] [address] [email or web address] Endocrinology 05/12/17 Billy Tsang RN [address] [place] [address] [email or web address] Primary Infusion Nurse 09/09/17 documented as of this encounter Additional Source Comments The information contained in this document represents components of the legal health record. It is not the complete legal health record.[facility]
--- OUTSIDE RECORDS SUMMARY | 2024-11-08 18:26 | XMS_ITS | Continuity of Care Document ---
Author Name [facility] Organization [facility] Care Team Providers Care Production Line Operator Name Role Phone [facility] Unavailable Unavailable Procedures Combined list of: 1) Procedures from Department of Veterans Affairs facilities [facility], not all [place] non-surgical procedures are included; 2) All procedures from the Department of [facility] facilities. Procedure Procedure Type Code Date Perfomer Comments Sourc e No data available for this section Ambulatory P harmacy Social History Combined list of available smoking, tobacco, and other social history from Department of Defense and Veterans Affairs facilities. Social History Type Response Date Comment Sourc e Sexual Orientation Ambula tory Pharmacy Gender identity Ambulator y Pharmacy Sex Representation Male Unknow n Organization This section is an empty soc ial history section. [facility] Assessment and Plan Combined list of future care activities from Department of Defense and Veterans Affairs facilities (e.g., assessment and plan notes, appointments, orders, and referrals). Additional future care activities may be listed in the Plan of Care section. Result Assessment and Plan Date Source Assessment and Plan No data available for this section 11/08/2024 Ambulatory Pharmacy Functional Status Combined list of recent functional and cognitive assessments recorded at Department of Defense and Veterans Affairs ([place]).VA Functional [place] Measurement (FIM) Scale: 1 = Total Assistance (Subject = 0% +), 2 = Maximal Assistance (Subject = 25% +), 3 = Moderate Assistance (Subject = 50% +), 4 = Minimal Assistance (Subject = 75% +), 5 = Supervision, 6 = Modified [place] (Device), 7 = Complete [place] (Timely, Safely). Assessment Date/Time Source Assessment Type Assessment Skill Assessment Score Assessment Details No data available for this section
--- OUTSIDE RECORDS SUMMARY | 2024-11-08 18:27 | XMS_ITS ---
Author Organization Luis M Dempsey MD Address [address] [place] [phone] Care Team Providers Care Customer Development Representative Name Role Phone Luis M Dempsey Primary Care Provider Allergies Allergen (clinical drug ingredient) Drug/Non Drug Allergy documented on EMR Reaction Allergy Type Onset Date Status Compazine Unknown Drug Allergy Active REASON FOR VISIT MRI right knee, NO BLOOD DRAW, Video Medications Medication SIG (Take, Route, Frequency, Duration) Notes Start Date End Date Status Fenofibrate 145 MG 1 tablet Orally Once a day Active Lisinopril 5 MG 1 tablet Orally Once a day Active Levothyroxine Sodium 75 MCG 1 tablet on an empty stomach in the morning Orally Once a day Active Multivitamins - Orally Acti ve Potassium Citrate ER 10 MEQ (1080 MG) 1 tablet with meals Orally bid Active Problems Problem Type SNOMED Code ICD Code Onset Dates Problem Status W/U Status Risk Notes Problem AVN (avascular necrosis of bone) (M87.00) Active confirmed Vital Signs Height 66.5 in 10/28/2024 Weight 175 lbs 10/28/2024 BMI 27.82 kg/m2 10/28/2024 weight is 175 BP not taken n o temp Encounters Encounter Location Date Provider Diagnosis Luis M Dempsey MD [address] [place] [phone] 10/28/2024 Luis M Dempsey AVN (avascular necrosis of bone) M87.00 Assessments Encounter Date Diagnosis (ICD Code) Assessment Notes Treatment Notes Treatment Clinical Notes Section Notes 10/28/2024 AVN (avascular necrosis of bone) (ICD-10 - M87.00) pending diagnostic testing Plan Of Treatment Treatment Notes Assessment Notes AVN (avascular necrosis of bone) pending diagnostic testing Pending Test Test Name Order Date MR knee RT wo con 10/28/2024 Next Appt Details Provider Name:Luis M Alfonso Joy ier, 05/16/2025 01:30:00 PM, [facility], [address], [place], [place], [phone], Provider Name:Luis M Joy ier, 11/06/2025 07:45:00 AM, [address] [place] [address], [address], [place], [place], [phone], Provider Name:Luis M Joy ier, 11/13/2025 01:00:00 PM, [address] [place] [address], [address], [place], [place], [phone], Progress Notes * Nick LEBRONDOB:1964 (59 yo M)Acc No.[id number]:10/28/2024 Patient:?Nick LEBRON Provider:?Luis M Dempsey MD :1965???Age:59 Y???Sex:Male Martinez e:10/28/2024 Address:[address] [place], [place] [id number] Subjective: * Chief Complaints: * ???MRI right kneeNO BLOOD DR Goel * HPI: ???Symptom(s):?Telehealth?Location of provider rendering services:?[address], [address],?Location of patient:?at address listed in demographics for today's visit,?Patient identification confirmed using:?Name, ,?Telehealth method:?Video conference where patient is visible to the provider of care,?Consent:?Patient verbally consented to treatment, Patient verbally consented to billing insurance company, Patient informed of any privacy concerns related to method of visit,?Total time spend talking with patient (minutes)?18.?patient is a 59 yo male video telehealth visit, with complaint knees are getting worse especially rt knee. has avn on both knees. * ROS:?General/Constitutional:?Denies?Chills.?Denies?Fatigue.?Denies?Fever.?Denies?Headache.?ENT:?Patient denies?decreased sense of smell, any loss of taste, sore throat.?Denies?Sore throat.?Respiratory:?Denies?Cough.?Denies?Shortness of breath at rest.?Denies?Shortness of breath with exertion.?Gastrointestinal:?Denies?Diarrhea.?Denies?Nausea.?Musculoskeletal:?Patient denies?muscle aches.?Peripheral Vascular:?Patient denies?red and blue toes.? * Medical History:? * Surgical History:? * Hospitalization/Major Diagno stic Procedure:? * Medications:?TakingFenofibra te 145 MG Tablet 1 tablet Orally Once a day Lisinopril 5 MG Tablet 1 tablet Orally Once a day Multivitamins - Capsule Orally Potassium Citrate ER 10 MEQ (1080 MG) Tablet Extended Release 1 tablet with meals Orally bid Levothyroxine Sodium 75 MCG Tablet 1 tablet on an empty stomach in the morning Orally Once a day Taking Fenofibrate 145 MG Tablet 1 tablet Orally Once a day Taking Lisinopril 5 MG Tablet 1 tablet Orally Once a day Taking Multivitamins - Capsule Orally Taking Potassium Citrate ER 10 MEQ (1080 MG) Tablet Extended Release 1 tablet with meals Orally bid Taking Levothyroxine Sodium 75 MCG Tablet 1 tablet on an empty stomach in the morning Orally Once a day DiscontinuedpredniSONE 20 MG Tablet 1 tablet Orally Once a day Medication List reviewed and reconciled with the patientDiscontinued predniSONE 20 MG Tablet 1 tablet Orally Once a day Medication List reviewed and reconciled with the patient * Allergies:?Compazineyes[Emanuel rgies Verified] Objective: * Vitals:?Ht: 66.5, Wt: 175, B RI:27.82, Wt-k.38. weight is 175? BP? not taken no temp. * Examination: ???General Examination: ?GENERAL APPEARANCE:?alert, well hydrated, in no distress.? Assessment: * Assessment: 1.?AVN (avascular necrosis o f bone) - M87.00 (Primary)??? Plan: * Treatment: Notes: pending diagnostic testing?? * Procedure Codes:? * * Sign off status: Completed true * Provider:?Luis M Dempsey MD Date:?0 10/28/2024 Generated for Celia godfrey/Mirta/Steff on:?11/08/2024 06:26 PM EDT History and Physical Notes * HPI (History of Present Illness) Category Sub-Category Detail Notes Category Not es Symptom(s) Telehealth Location of [facility] rendering services:: [address], [address] patient is a 59 yo male video telehealth visit, with complaint knees are getting worse especially rt knee. has avn on both knees Location of patient:: at address listed in demographics for today's visit Patient identification confirmed using:: Name, Telehealth method:: Video co nference where patient is visible to the provider of care Consent:: Patient verbally c onsented to treatment, Patient verbally consented to billing insurance company, Patient informed of any privacy concerns related to method of visit Total time spend talking with patient (m inutes): 18 Examination Category Sub-Category Detail Notes Category Not es General Examination GENERAL APPEARANCE: alert, w ell hydrated, in no distress
--- OUTSIDE RECORDS SUMMARY | 2024-11-08 18:27 | XMS_ITS | Encounter Summary ---
Author Organization [facility] Address [address] [place] [address] Phone Care Team Providers Care Monotype Keyboard Operator Name Role Phone Luis M Dempsey MD Primary Care Provider Frankie Marion MD Unavailable Ayan Anderson NP Unavailable [phone] Khoa Mattson MD Unavailable Rosas Triana MD Unavailable Yamel Osborne MD Unavailable [phone] Luis M Dempsey MD Unavailable [phone] Eduardo Chen [facility] ROSLYN Unavailable Billy Tsang RN Unavailable Kimberly Raman MD Primary Care Provider Asher Coleman PA-C Unavailable Encounter Details Date Type Department Care Team (Latest Contact Info) Description 01/07/2017 Transcribe Orders [facility] [address] [address] Andres Milner MD,MPH,MSc [address] [place] [phone] [email or web address] Dry eye (Primary Dx) Social History Tobacco [...] Office Visit [facility] [address] [place] [address] Sang Matthews MD, MPH [address] [place] [address] [email or web address] 12/08/2024 11:50 AM EDT Blood Draw Laboratory Services, [facility] [address] [address] [place] [address] Malorie Mckeon MD [address] [place] [address] [email or web address] Yenny Ramon MD 12/08/2024 1:00 PM EDT Office Visit [facility] Urology 45 [facility]3 [place] [address] Robinson Enrique MD [address] [place], [place] [address]II-3 [place] [address] [email or web address] 12/08/2024 2:00 PM EDT Office Visit Adult Survivorship Program, [facility] [address] [facility], Fl [address] [place] [address] Malorie Mckeon MD [address] [place] [address] [email or web address] 02/13/2025 10:10 AM EDT Blood Draw Laboratory Services, [facility] [address] [facility] [address] 2 [place], [place] Etienne Zarate MD 450 [place] [address] [email or web address] 02/13/2025 11:00 AM EDT Office Visit Division of Hematologic Oncology, [facility] [address] [facility] [address] [place] [address] Etienne Zarate MD 450 [place] [address] [email or web address] 03/07/2025 9:00 AM EDT Office Visit Adult Survivorship Program, [facility] [address] [facility] [address] [place] [address] Wilder Melvin MD [address] [place] [address] [email or web address] documented as of this encounter Results * Autologous serum for tears lab blood draw ([facility] (01/07/2017 11:51 AM EDT) Tubes Drawn 6 [facility] 01/07/2017 11:5 1 AM EDT 01/07/2017 12:14 PM EDT Andres Milner MD,MPH,MSc [place] [address], [facility] documented in this encounter Visit Diagnoses Diagnosis Dry eye- Primary documented in this encounter Additional Health Concerns Infection Onset Date Last Indicated Resolved Time CoV-Risk 03/27/2021 03/27/2021 04/06/2021 1:24 AM EDT documented as of this encounter Care Teams Monotype Keyboard Operator Relationship Specialty Start Date End Date Luis M Dempsey MD [address] [place] [address] [place] [address] PCP - General 02/28/14 05/20/22 Kimberly Raman MD 20 [facility] Primary Care - 4th [place] [address] [email or web address] PCP - General Internal Medicine 05/21/22 Asher Coleman PAMaryC 20 [place] [address] [email or web address] PCP - Resident PCP Physician Restaurant Assistant 05/21/22 Frankie Marion MD [address] [place] [address] Historical LMR Provider 01/13/15 Ayan Anderson NP [address] [place], [place] [address] [address] [email or web address] Historical LMR Provider 01/13/15 09/06/17 Khoa Mattson MD [address] [place] [address] Historical LMR Provider 01/13/15 2 Rosas Triana MD [address] [place] [address] [email or web address] Historical LMR Provider 01/13/15 Yamel Osborne MD [address] [place] [address] [email or web address] Historical LMR Provider 01/13/15 09/07/21 Luis M Dempsey MD [address] [place] [address] [place] [address] Referring Physician Internal Medicine 11/06/15 09/06/17 Eduardo Chen [facility] ROSLYN [address] [place] [address] [email or web address] Endocrinology 05/12/17 Billy Tsang RN [address] [place] [address] [email or web address] Primary Infusion Nurse 09/09/17 documented as of this encounter Additional Source Comments The information contained in this document represents components of the legal health record. It is not the complete legal health record[facility]
--- OUTSIDE RECORDS SUMMARY | 2024-11-08 18:27 | XMS_ITS ---
Author Organization Luis M Dempsey MD Address [address] [place], [place] [id number] Care Team Providers Care Burring Machine Operator Name Role Phone Lusi M Dempsey Primary Care Provider Allergies Allergen (clinical drug ingredient) Drug/Non Drug Allergy documented on EMR Reaction Allergy Type Onset Date Status Compazine Unknown Drug Allergy Active Results Component Value Reference Range Notes Potassium (Not yet reviewed by provider) Interpretation: Performing Lab:[facility], [address] [place] [id number] Notes/Report: Potassium 4.5 3.3-5.1 mmol/L REASON FOR VISIT ANNUAL EXAM Medications Medication SIG (Take, Route, Frequency, Duration) [...] 1 tablet with meals Orally bid Not-Taking Social History Tobacco Use: Social History Observation [...] Never (0 point) Points 1 Interpretation Negative Vital Signs Blood pressure systolic 98 mm Hg 11/09/19 25 Blood pressure diastolic 60 mm Hg 025 Height 66.5 in 11/08/2024 Weight 181 lbs 11/08/2024 BMI 28.77 kg/m2 11/08/2024 weight is up 6 pounds since 10-28-24 Encounters Encounter Location Date Provider Diagnosis Luis M Dempsey MD [address] [place] [address] [address] [place], [place] [phone] 11/08/2024 Luis M Dempsey Hyperkalemia E87.5 ; Annual physical exam Z00.00 ; Foot drop, left foot M21.372 ; 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 and will recheck, pending follow up lbs 11/08/2024 Annual physical exam (ICD-10 - Z00.00) labs reviewed and disussed with patient 11/08/2024 Foot drop, left foot (ICD-10 - M21.372) 11/08/2024 Hypothyroidism due to medication (ICD-10 - E03.2) stable, will cntonue current regiement 11/08/2024 Colon cancer screening (ICD-10 - Z12.11) guaiac negative 11/08/2024 Depression screening (ICD-10 - Z13.31) negative screen Plan Of Treatment Medication Medication Name Sig Start Date Stop Date Notes Levothyroxine Sodium 75 MCG 1 tablet on an empty stomach in the morning Orally Once a day Treatment Notes Assessment Notes Hyperkalemia patient instructed t o decrease k from 6 to 3. and will recheck, pending follow up lbs Annual physical exam labs reviewed and d isussed with patient Hypothyroidism due to medication stable, will cntonue current regiement Colon cancer screening guaiac negative Depression screening negative screen Pending Test Test Name Order Date Potassium 11/08/2024 Future Test Test Name Order Date Potassium 11/22/2024 Next Appt Details Follow Up: 6 Months, Reason: Provider Name:Luis M Joy ier, 05/16/2025 01:30:00 PM, [address], [address], [place], [phone], Provider Name:Luis M Joy ier, 11/06/2025 07:45:00 AM, [address], [address], [place], [place], [phone], Provider Name:Luis M Joy ier, 11/13/2025 01:00:00 PM, [address], [address], [place], [place], [phone], Progress Notes * Nick LEBRONDOB:1964 (59 yo M)Acc No.[id number]:11/08/2024 Progress Notes Patient:?Nick LEBRON Provider:?Luis M Dempsey MD :1965???Age:59 Y???Sex:Male Martinez e:11/08/2024 Address:[address] [place] [id number] Subjective: * Chief Complaints: * ???1. ANNUAL EXAM. * HPI: ???Depression Screening:?PHQ-9?Little interest or pleasure in doing things?Not at all,?Feeling down, depressed, or hopeless?Not at all,?Trouble falling or staying asleep, or sleeping too much?Not at all,?Feeling tired or having little energy?Not at all,?Poor appetite or overeating?Not at all,?Feeling bad about yourself or that you are a failure, or have let yourself or your family down?Not at all,?Trouble concentrating on things, such as reading the newspaper or watching television?Not at all,?Moving or speaking so slowly that other people could have noticed; or the opposite, being so fidgety or restless that you have been moving around a lot more than usual?Not at all,?Thoughts that you would be better off or of hurting yourself in some way?Not at all,?Total Score?0.?Interpretation and Intervention?Depression Screening Findings?Negative,?Follow-Up for Depression?: review of PHQ-9 found negative result, no follow-up needed.?Communication Needs:?Communication Needs?Does the patient have a hearing impairment?No,?Does the patient have a vision impairment??Yes,?If yes, what is the vision impairment??Glasses,?Does the patient have a cognition impairment??No.?SDOH Questions:?SDOH Questions?In the past year have you been worried about losing housing??No,?In the past year have you or any family members you live with been unable to get any of the following when it was really needed? Check all that apply:?None.?Symptom(s):? patient is a 59 yo male here for annual visit with review of recent labs and follow up of chronic issues, taking potassium citrate 4 tabs per day to prevent kidney stones. * ROS:?General/Constitutional:?Patient denies?fatigue, headache.?Change in appetite?denies.?Chills?denies.?Fever?denies.?Ophthalmologic:?Blurred vision?denies.?Discharge?denies.?Pain?denies.?ENT:?Patient denies?decreased sense of smell, any loss of taste, sore throat.?Decreased hearing?denies.?Sore throat?denies.?Swollen glands?denies.?Endocrine:?Cold intolerance?denies.?Excessive thirst?denies.?Heat intolerance?denies.?Weight loss?denies.?Respiratory:?Cough?denies.?Shortness of breath at rest?denies.?Shortness of breath with exertion?denies.?Wheezing?denies.?Cardiovascular:?Chest pain at rest?denies.?Chest pain with exertion?denies.?Irregular heartbeat?denies.?Shortness of breath?denies.?Gastrointestinal:?Abdominal pain?denies.?Change in bowel habits?denies.?Diarrhea?denies.?Nausea?denies.?Rectal bleeding?denies.?Vomiting?denies .?Genitourinary:?Blood in urine?denies.?Difficulty urinating?denies.?Frequent urination?denies.?Musculoskeletal:?Patient denies?muscle aches.?Painful joints?denies.?Weakness?denies.?Peripheral Vascular:?Patient denies?red and blue toes.?Skin:?Dry skin?denies.?Itching?denies.?Denies?Mole(s),? changes in moles, new moles or any lesions of concern.?Denies?Photosensitivity.?Rash?denies.?Neurologic:?Dizziness?denies.?Fainting?denies.?Headache?denies.? * Medical History:?Colonoscopy 2021 repeat 5 years. * Family History:?Father: connor mckeon 78 yrs.?Mother: alive 79 yrs.?1 brother(s) , 1 sister(s) - healthy. 1 son(s) , 1 daughter(s) - healthy. .? Mother- Healthy Father Healthy, No pertinent family medical history, Denies mental health/substance abuse family history, No pertinent family medical history, Denies mental health/substance abuse family history, No pertinent family medical history. * Social History:?Tobacco Use:?Tobacco Use/Smoking?Patient is a?nonsmoker,?Additional Findings: Tobacco Non-User?Current non-smoker, currently using no form of tobacco.?Drugs/Alcohol:?Alcohol Screen?Did you have a drink containing alcohol in the past year??Yes,?How often did you have a drink containing alcohol in the past year??Monthly or less (1 point),?How many drinks did you have on a typical day when you were drinking in the past year??1 or 2 drinks (0 point),?How often did you have 6 or more drinks on one occasion in the past year??Never (0 point),?Points?1,?Interpretation?Negative.?Miscellaneous:?Caffeine: yes, frequency:, 1-2 cups per day. Children: yes. Exercise: yes, Crossfit 5 times a week. Home smoke detector use: yes. Housing: owning. Living with: spouse, family. Marital status: . Pets: none. Travel outside of the [place]: yes, [place]. * Medications:?Taking Fenofibr ate 145 MG Tablet 1 tablet Orally Once a day , Taking Lisinopril 5 MG Tablet 1 tablet Orally Once a day , Taking Multivitamins - Capsule Orally , Taking Levothyroxine Sodium 75 MCG Tablet 1 tablet on an empty stomach in the morning Orally Once a day , Not-Taking/PRN Potassium Citrate ER 10 MEQ (1080 MG) Tablet Extended Release 1 tablet with meals Orally bid , Medication List reviewed and reconciled with the patient * Allergies:?Compazine. Objective: * Vitals:?Ht: 66.5, Wt: 181, B MN:28.77, BP:98/60, Wt-k.1. weight is up 6 pounds since 10-28-24. * Examination: ???General Examination: ?GENERAL APPEARANCE:?well developed, well nourished, in no acute distress.?HEAD:?normocephalic, atraumatic.?EYES:?pupils equal, round, reactive to light and accommodation, sclera non-icteric.?EARS:?normal.?ORAL CAVITY:?mucosa moist.?THROAT:?clear.?NECK/THYROID:?neck supple, full range of motion, no cervical lymphadenopathy, no bruits.?SKIN:?warm and dry, no suspicious lesions.?HEART:?regular rate and rhythm, S1, S2 normal, no murmurs.?LUNGS:?clear to auscultation bilaterally.?ABDOMEN:?soft, nontender, nondistended, bowel sounds present, normal, no organomegaly , no masses palpable.?RECTAL EXAM:?normal tone, no external hemorrhoids, no masses palpable, prostate normal, stool guaiac negative.?MALE GENITOURINARY:?not examined.?EXTREMITIES:?no clubbing, cyanosis, or edema.?NEUROLOGIC:?nonfocal, motor strength normal upper and lower extremities, sensory exam intact.? Assessment: * Assessment: 1.?Annual physical exam - Z0 0.00 (Primary)???2.?Hyperkalemia - E87.5???3.?Foot drop, left foot - M21.372???4.?Hypothyroidism due to medication - E03.2???5.?Colon cancer screening - Z12.11???6.?Depression screening - Z13.31??? Plan: * Treatment: 2.?Hyperkalemia?LAB: Potassium (Collection Date & Time - 11/08/2024 01:00 PM) ?LAB: Potassium (Ordered for 11/22/2024) Notes: patient instructed to decrease k from 6 to 3. and will recheck, pending follow up lbs? 3.?Hypothyroidism due to medication? Continue Levothyroxine Sodium Tablet, 75 MCG, 1 tablet on an empty stomach in the morning, Orally, Once a day.?? Notes: stable, will cntonue current regiement??4.?Colon cancer screening? Notes: guaiac negative??5.?Depression screening? Notes: negative screen?? * Procedure Codes:?73386 VENIP UNCT, ROUTINE* * Follow Up:?6 Months * * The named appointment provid er may or may not be the originator of this progress note, and it is not deemed complete until electronically signed by the appointment provider. Sign off status: Pending * Provider:?Luis M Dempsey MD Date:?0 11/08/2024 Generated for Celia godfrey/Mirta/Orlandoitting on:?11/08/2024 06:26 PM EDT History and Physical Notes * HPI (History of Present Illness) Category Sub-Category Detail Notes Category Not es Symptom(s) patient is a 59 yo male here for annual visit with review of recent labs and follow up of chronic issues, taking potassium citrate 4 tabs per day to prevent kidney stones Depression Screening PHQ-9 Little inte rest or pleasure in doing things: Not at all Feeling down, depressed, or hopeless: No t at all Trouble falling or staying asleep, or sl eeping too much: Not at all Feeling tired or having little energy: N ot at all Poor appetite or overeating: Not at all Feeling bad about yourself o r that you are a failure, or have let yourself or your family down: Not at all Trouble concentrating on thi ngs, such as reading the newspaper or watching television: Not at all Moving or speaking so slowly that other people could have noticed; or the opposite, being so fidgety or restless that you have been moving around a lot more than usual: Not at all Thoughts that you would be b jennifer off or of hurting yourself in some way: Not at all Total Score: 0 Interpretation and Intervention Depression Yonatan hoang Findings: Negative Follow-Up for Depression: : review of PH Q-9 found negative result, no follow-up needed SDOH Questions SDOH Questions In the past year have you been worried about losing housing?: No In the past year have you or any family members you live with been unable to get any of the following when it was really needed? Check all that apply:: None Communication Needs Communication Needs Does the patient have a hearing impairment: No Does the patient have a vision impairmen t?: Yes ?If yes, what is the vision impairment?: Glasses Does the patient have a cognition impair ment?: No Examination Category Sub-Category Detail Notes Category Not es General Examination GENERAL APPEARANCE: well dev eloped, well nourished, in no acute distress HEAD: normocephalic, atrau matic EYES: pupils equal, round, reactive to light and accommodation, sclera non- icteric EARS: normal THROAT: clear NECK/THYROID: neck supple, full ra nge of motion, no cervical lymphadenopathy, no bruits HEART: regular rate and rhy thm, S1, S2 normal, no murmurs LUNGS: clear to auscultatio n bilaterally ABDOMEN: soft, nontender, non distended, bowel sounds present, normal, no organomegaly , no masses palpable NEUROLOGIC: nonfocal, motor stre ngth normal upper and lower extremities, sensory exam intact SKIN: warm and dry, no macario picious lesions EXTREMITIES: no clubbing, cyanosi s, or edema MALE GENITOURINARY: not examined RECTAL EXAM: normal tone, no exte rnal hemorrhoids, no masses palpable, prostate normal, stool guaiac negative ORAL CAVITY: mucosa moist
== END 2024-11-08 15:11 | disposition home or self-care (01) ==
LOC: HO.LNP 15:10
PROVIDERS: Visit Provider Internal Medicine
DX: E87.5 Hyperkalemia (principal)
CPT/HCPCS: 84132